=== PATIENT | male | born 1980 | race Caucasian/White ===

== ENCOUNTER 2016-08-16 15:43 | Emergency (ER) | payer OTHER ==
[~2016-08-16] VITALS: Ht 182.9 cm; Wt 104.3 kg
[2016-08-16] MEDS ORDERED: ZYRT10TA2 PO (15:53)
[2016-08-16] MEDS ORDERED: FLON1SPR (15:53)
[2016-08-16] MEDS ORDERED: ACETAMINOPHEN 325 MG TAB PO ONE (16:15)
[2016-08-16] MEDS ORDERED: MOTR200T44 PO (16:46)
--- NOTE | 2016-08-16 16:47 | REP ---
LEFT HAND: REASON: Pain after trauma. Attention first digit. COMPARISON EXAM: 02/16/2007. FINDINGS: The joint spaces are symmetric and relatively well maintained. There is no evidence of acute fracture or destructive osseous lesion. There is complete healing of the previous noted boxers fracture with slight result in deformity. IMPRESSION: Negative hand. Signed by Navdeep Langston DO 08/17/2016 09:24 A
--- NOTE | 2016-08-16 16:49 | REP ---
LEFT WRIST: HISTORY: Pain after trauma. COMPARISON: None. FINDINGS: No acute fracture or destructive osseous lesion. Signed by Navdeep Langston DO 08/17/2016 09:24 A
[2016-08-16 17:07] VITALS: BP 118/56
== END 2016-08-16 17:12 | disposition home or self-care (01) ==
LOC: M ED 16:18
DX: S63.602A Unspecified sprain of left thumb, initial encounter (principal); W23.0XXA Caught, crushed, jammed, or pinched between moving objects, initial encounter; Y92.818 Other transport vehicle as the place of occurrence of the external cause; Y93.9 Activity, unspecified; Y99.9 Unspecified external cause status; F17.200 Nicotine dependence, unspecified, uncomplicated; Z79.899 Other long term (current) drug therapy; Z88.0 Allergy status to penicillin

== ENCOUNTER → 2016-09-14 | Outpatient (REF) | payer OTHER ==
[~2016-09-14] MED LIST: FLON1SPR; MOTR200T44 PO; ZYRT10TA2 PO
[2016-09-14 12:24] LABS: ALBUMIN/GLOBULIN RATIO 1.67 (1.00-1.93); ALKALINE PHOSPHATASE 81 U/L (45-117); ALT/SGPT 26 U/L (12-78); ANION GAP 9 MEQ/L (8-16); AST/SGOT 18 U/L (15-37); BILIRUBIN,TOTAL 0.4 MG/DL (0.2-1.0); BLOOD UREA NITROGEN 13 MG/DL (7-18); CALCIUM LEVEL 8.8 MG/DL (8.5-10.1); CARBON DIOXIDE LEVEL 25 MEQ/L (21-32); CHLORIDE LEVEL 109 MEQ/L (98-107); CREATININE FOR GFR 1.18 MG/DL (0.70-1.30); GLOMERULAR FILTRATION RATE > 60.0 (>60); GLUCOSE, FASTING 100 MG/DL (70-105); POTASSIUM SERUM 4.1 MEQ/L (3.5-5.1); SODIUM LEVEL 143 MEQ/L (136-145); TOTAL PROTEIN 6.4 GM/DL (6.4-8.2)
== END ==
LOC: M LABDRAW1 11:37
PROVIDERS: ATTEND Physician Assistant
DX: Z72.51 High risk heterosexual behavior (principal); R00.1 Bradycardia, unspecified

== ENCOUNTER 2016-09-21 09:27 | Emergency (ER) | payer OTHER ==
[~2016-09-21] VITALS: Ht 182.9 cm; Wt 99.8 kg
[2016-09-21 09:27] VITALS: BP 133/74
[2016-09-21] MEDS ORDERED: NAPR500T2 PO (09:59)
== END 2016-09-21 10:07 | disposition home or self-care (01) ==
LOC: M ED 09:56
DX: M25.562 Pain in left knee (principal); F17.200 Nicotine dependence, unspecified, uncomplicated; Z79.899 Other long term (current) drug therapy; Z88.0 Allergy status to penicillin

== ENCOUNTER 2016-11-04 05:56 | Emergency (ER) | payer OTHER ==
[~2016-11-04] VITALS: Ht 182.9 cm; Wt 97.5 kg
[~2016-11-04 05:56] MED LIST changes: +NAPR500T2 PO
[2016-11-04] MEDS ORDERED: KETOROLAC 60 MG/2 ML VIAL (J1885) IM ONE (07:00)
[2016-11-04] MEDS ORDERED: METHOCARBAMOL 500 MG TAB PO ONE (07:00)
[2016-11-04] MEDS ORDERED: NORCOTAB PO (07:02)
[2016-11-04] MEDS ORDERED: IBUP600T26 PO (07:02)
[2016-11-04] MEDS ORDERED: ROBA500T PO (07:02)
[2016-11-04 07:36] VITALS: BP 115/76
== END 2016-11-04 07:38 | disposition home or self-care (01) ==
LOC: M ED 07:23
DX: S39.012A Strain of muscle, fascia and tendon of lower back, initial encounter (principal); X50.0XXA Overexertion from strenuous movement or load, initial encounter; Y92.89 Other specified places as the place of occurrence of the external cause; Y93.89 Activity, other specified; Y99.8 Other external cause status; F17.210 Nicotine dependence, cigarettes, uncomplicated

== ENCOUNTER 2017-03-14 22:03 | Emergency (ER) | payer OTHER ==
[~2017-03-14] VITALS: Ht 188 cm; Wt 102.4 kg
[~2017-03-14 22:03] MED LIST changes: +IBUP-1022 PO; -NAPR500T2 PO; +NAPR500T3 PO; +NORCOTAB PO; +ROBA500T PO
[2017-03-15] MEDS ORDERED: TESS100C PO (01:05)
[2017-03-15] MEDS ORDERED: ALBUTEROL 90 MCG/ACT 8GM HFA INHALER INH ONE (01:15)
[2017-03-15] MEDS ORDERED: BENZONATATE 100 MG CAP PO ONE (01:15)
[2017-03-15 01:17] VITALS: BP 123/67
== END 2017-03-15 01:19 | disposition home or self-care (01) ==
LOC: M ED 22:03
DX: J06.9 Acute upper respiratory infection, unspecified (principal); Z79.899 Other long term (current) drug therapy; Z88.0 Allergy status to penicillin

== ENCOUNTER 2017-05-01 19:58 | Emergency (ER) | payer OTHER ==
[~2017-05-01] VITALS: Ht 182.9 cm; Wt 102.3 kg
[~2017-05-01 19:58] MED LIST changes: +TESS100C PO
[2017-05-01] MEDS ORDERED: NS 1,000 ML IV ONE (22:00)
[2017-05-01 22:19] LABS: BASO # 0.1 10^3/uL (0.0-0.2); BASO % 0.8 % (0.0-1.0); EOS # 0.4 10^3/uL (0.0-0.50); EOS % 3.8 % (0.0-3.0); IMMATURE GRANULOCYTE % 0.7 % (0-0); LYMPH # 2.9 10^3/uL (1.5-4.5); LYMPH % 26.7 % (24.0-44.0); MEAN CORPUSCULAR HEMOGLOBIN 31.3 pg (27.0-33.0); MEAN CORPUSCULAR VOLUME 89.5 fl (80.0-96.0); MONO # 0.9 10^3/uL (0.0-0.8); MONO % 8.5 % (0.0-5.0); NEUTROPHILS # 6.5 10^3/uL (1.8-7.7); NEUTROPHILS % 59.5 % (36.0-66.0); PLATELET COUNT, AUTOMATED 210 10^3/uL (150-450); RED CELL DISTRIBUTION WIDTH 12.2 % (11.5-14.5); WHITE BLOOD COUNT 10.9 10^3/uL (4.0-10.0)
[2017-05-01 22:30] LABS: INR 0.93
[2017-05-01 22:38] LABS: ALBUMIN 4.2 GM/DL (3.2-5.2); ALBUMIN/GLOBULIN RATIO 1.31 (1.00-1.93); ALKALINE PHOSPHATASE 70 U/L (45-117); ALT/SGPT 48 U/L (12-78); AMYLASE 99 U/L (25-115); ANION GAP 8 MEQ/L (8-16); AST/SGOT 29 U/L (7-37); BILIRUBIN,DIRECT < 0.1 MG/DL (0.0-0.2); BILIRUBIN,TOTAL 0.2 MG/DL (0.2-1.0); BLOOD UREA NITROGEN 11 MG/DL (7-18); CALCIUM LEVEL 8.6 MG/DL (8.5-10.1); CARBON DIOXIDE LEVEL 27 MEQ/L (21-32); CHLORIDE LEVEL 106 MEQ/L (98-107); CREATININE FOR GFR 1.09 MG/DL (0.70-1.30); GLOMERULAR FILTRATION RATE > 60.0 (>60); GLUCOSE, FASTING 98 MG/DL (70-105); POTASSIUM SERUM 3.9 MEQ/L (3.5-5.1); SODIUM LEVEL 141 MEQ/L (136-145); TOTAL PROTEIN 7.4 GM/DL (6.4-8.2)
[2017-05-01] MEDS ORDERED: ISOVUE-370 76% 100ML VIAL (Q9967) As Ordered ONE (22:38)
--- NOTE | 2017-05-01 23:10 | REPUSA ---
CT of the abdomen and pelvis with contrast Clinical statement: Pain. Technique: Multiple axial CT images were obtained from the base of the lungs through the floor of the pelvis utilizing 5 mm axial slices after administration of nonionic intravenous contrast. Coronal an d sagittal reconstructions were also obtained. Comparison: 10/16/2013. Findings: Chest: The visualized lung bases are clear. Abdomen: The spleen, pancreas, kidneys, gallbladder, and adrenal glands are unremarkable. Diffuse low attenuation of the hepatic parenchyma is noted. No focal hepatic masses are seen. The hepatic and po rtal veins are patent. The aorta is within normal limits. There is no evidence of abdominal lymphaden opathy or ascites. Pelvis: The bowel is unremarkable, with no obstructive or inflammatory changes. The appendix is dave l. The urinary bladder is within normal limits. The other pelvic structures appear grossly intact. Th ere is no evidence of pelvic lymphadenopathy or ascites. Bones: There are no suspicious osseous abnormalities seen. Impression: Unremarkable CT examination of the abdomen and pelvis.
[2017-05-01] MEDS ORDERED: ANUS25SU PR (23:46)
[2017-05-01 23:52] VITALS: BP 148/77
== END 2017-05-02 | disposition home or self-care (01) ==
LOC: M ED 19:58
DX: K62.5 Hemorrhage of anus and rectum (principal); K64.4 Residual hemorrhoidal skin tags; F17.210 Nicotine dependence, cigarettes, uncomplicated; Z88.0 Allergy status to penicillin; Z79.899 Other long term (current) drug therapy
CPT/HCPCS: 74177; 80048; 80076; 81001; 82150; 83605; 83690; 85025; 85610; 85730; 99284; Q9967

== ENCOUNTER 2017-08-30 21:15 | Emergency (ER) | payer OTHER ==
[2017-08-30] MEDS: NORCO, ANEXSIA 5/325MG TABLET (HYDROcodone/ACETAMINOPHEN) PO (23:30)
[2017-08-30] MEDS: DOXYCYCLINE HYCLATE 100 MG TAB PO (23:30)
[2017-08-30] MEDS: ADACEL/BOOSTRIX VACCINE (DIPHTH/PERTUSS/ACELL/TETANUS)0.5ML SYR (90715) IM (23:33)
== END 2017-08-30 23:48 | disposition home or self-care (01) ==
LOC: M ED 21:15
DX: S61.452A Open bite of left hand, initial encounter (principal)
CPT/HCPCS: 90715

== ENCOUNTER → 2017-09-19 | Outpatient (REF) | payer OTHER ==
[2017-09-19 11:42] LABS: BASO # 0.1 10^3/uL (0.0-0.2); BASO % 0.9 % (0.0-1.0); EOS # 0.3 10^3/uL (0.0-0.50); EOS % 3.3 % (0.0-3.0); HEMATOCRIT 40.6 % (42.0-52.0); IMMATURE GRANULOCYTE % 0.5 % (0-3.0); LYMPH # 2.2 10^3/uL (1.5-4.5); LYMPH % 23.3 % (24.0-44.0); MEAN CORPUSCULAR HGB CONC 34.5 g/dl (32.0-36.5); MEAN CORPUSCULAR VOLUME 89.8 fl (80.0-96.0); MONO # 0.7 10^3/uL (0.0-0.8); MONO % 7.4 % (0.0-5.0); NEUTROPHILS % 64.6 % (36.0-66.0); PLATELET COUNT, AUTOMATED 220 10^3/uL (150-450); RED BLOOD COUNT 4.52 10^6/uL (4.30-6.10); RED CELL DISTRIBUTION WIDTH 12.3 % (11.5-14.5); WHITE BLOOD COUNT 9.2 10^3/uL (4.0-10.0)
== END ==
LOC: M LABDRAW1 10:08
DX: R59.9 Enlarged lymph nodes, unspecified (principal)
CPT/HCPCS: 85025

== ENCOUNTER → 2017-09-21 | Outpatient (CLI) | payer OTHER | LOC: M RAD 14:27 | DX: R59.0 Localized enlarged lymph nodes (principal) | CPT/HCPCS: 76536 ==

== ENCOUNTER → 2017-12-14 | Outpatient (CLI) | payer OTHER ==
[~2017-12-14] MED LIST changes: -FLON1SPR; -IBUP-1022 PO; +LIDOCAINE 1% MDV 20ML VIAL As Ordered; -MOTR200T44 PO; -NAPR500T3 PO; -NORCOTAB PO; -ROBA500T PO; -TESS100C PO; -ZYRT10TA2 PO
== END ==
LOC: M RADPRO 10:49
DX: C81.90 Hodgkin lymphoma, unspecified, unspecified site (principal); R59.0 Localized enlarged lymph nodes; Z79.899 Other long term (current) drug therapy; Z88.0 Allergy status to penicillin
CPT/HCPCS: 38505

== ENCOUNTER 2018-01-25 11:37 | Emergency (ER) | payer OTHER | END 2018-01-25 13:53 | disposition home or self-care (01) | LOC: M ED 11:37 | DX: Z76.0 Encounter for issue of repeat prescription (principal); F17.200 Nicotine dependence, unspecified, uncomplicated | CPT/HCPCS: 99283 ==

== ENCOUNTER 2018-02-03 09:07 | Emergency (ER) | payer OTHER | END 2018-02-03 09:50 | disposition home or self-care (01) | LOC: M ED 09:07 | DX: Z76.0 Encounter for issue of repeat prescription (principal); G89.29 Other chronic pain; M54.2 Cervicalgia; C85.90 Non-Hodgkin lymphoma, unspecified, unspecified site; Z79.899 Other long term (current) drug therapy; Z88.0 Allergy status to penicillin; Z88.5 Allergy status to narcotic agent; F17.210 Nicotine dependence, cigarettes, uncomplicated | CPT/HCPCS: 99282 ==

== ENCOUNTER 2018-02-05 09:38 | Emergency (ER) | payer OTHER | END 2018-02-05 10:42 | disposition home or self-care (01) | LOC: M ED 09:38 | DX: M54.2 Cervicalgia (principal); G89.29 Other chronic pain; C85.90 Non-Hodgkin lymphoma, unspecified, unspecified site; Z86.79 Personal history of other diseases of the circulatory system; F17.200 Nicotine dependence, unspecified, uncomplicated; Z88.0 Allergy status to penicillin; Z88.5 Allergy status to narcotic agent; Z79.899 Other long term (current) drug therapy | CPT/HCPCS: 99282 ==

== ENCOUNTER 2018-02-09 10:01 | Emergency (ER) | payer OTHER | END 2018-02-09 11:20 | disposition home or self-care (01) | LOC: M ED 10:01 | DX: Z76.0 Encounter for issue of repeat prescription (principal); M54.2 Cervicalgia; G89.29 Other chronic pain; C85.90 Non-Hodgkin lymphoma, unspecified, unspecified site; J45.909 Unspecified asthma, uncomplicated; F17.210 Nicotine dependence, cigarettes, uncomplicated; Z88.0 Allergy status to penicillin; Z88.5 Allergy status to narcotic agent; Z79.899 Other long term (current) drug therapy | CPT/HCPCS: 99282 ==

== ENCOUNTER 2018-02-12 15:28 | Emergency (ER) | payer OTHER | END 2018-02-12 17:40 | disposition home or self-care (01) | LOC: M ED 15:28 | DX: R59.0 Localized enlarged lymph nodes (principal); C81.91 Hodgkin lymphoma, unspecified, lymph nodes of head, face, and neck; M54.2 Cervicalgia; Z76.0 Encounter for issue of repeat prescription; F17.210 Nicotine dependence, cigarettes, uncomplicated | CPT/HCPCS: 99282 ==

== ENCOUNTER 2018-03-05 09:51 | Emergency (ER) | payer OTHER | END 2018-03-05 11:50 | disposition home or self-care (01) | LOC: M ED 09:51 | DX: J06.9 Acute upper respiratory infection, unspecified (principal); J45.909 Unspecified asthma, uncomplicated; F32.9 Major depressive disorder, single episode, unspecified; Z85.72 Personal history of non-Hodgkin lymphomas; Z79.899 Other long term (current) drug therapy; Z88.0 Allergy status to penicillin; Z88.5 Allergy status to narcotic agent | CPT/HCPCS: 71046 ==

== ENCOUNTER 2018-03-12 15:58 | Emergency (ER) | payer OTHER | END 2018-03-12 17:27 | disposition home or self-care (01) | LOC: M ED 15:58 | DX: Z76.0 Encounter for issue of repeat prescription (principal); M54.2 Cervicalgia; C85.90 Non-Hodgkin lymphoma, unspecified, unspecified site; J45.909 Unspecified asthma, uncomplicated; Z88.0 Allergy status to penicillin; Z88.5 Allergy status to narcotic agent; Z79.899 Other long term (current) drug therapy; Z79.2 Long term (current) use of antibiotics | CPT/HCPCS: 99283 ==

== ENCOUNTER 2018-04-15 10:29 | Emergency (ER) | payer OTHER | END 2018-04-15 11:25 | disposition home or self-care (01) | LOC: M ED 10:29 | DX: R22.1 Localized swelling, mass and lump, neck (principal); G89.18 Other acute postprocedural pain; J45.909 Unspecified asthma, uncomplicated; F33.9 Major depressive disorder, recurrent, unspecified; Z79.899 Other long term (current) drug therapy; Z85.72 Personal history of non-Hodgkin lymphomas; Z88.0 Allergy status to penicillin; Z88.5 Allergy status to narcotic agent; F17.210 Nicotine dependence, cigarettes, uncomplicated | CPT/HCPCS: 99282 ==

== ENCOUNTER 2018-10-25 12:33 | Emergency (ER) | payer OTHER ==
[~2018-10-25] VITALS: Ht 182.9 cm; Wt 102.0 kg
[~2018-10-25 12:33] MED LIST changes: +ANUS25SU PR; +BENZ200C70 PO; +CEFD1CAP8 PO; +CLAR10CA3 PO; +DOXY100C37 PO; +FLON1SPR; +FLON1SPR NARES; +HYDR-3715 PO; +IBUP-1022 PO; -LIDOCAINE 1% MDV 20ML VIAL As Ordered; +MOTR200T44 PO; +MUCI600T37 PO; +NAPR-885 PO; +OXYC-517 PO; +OXYC1CAP PO; +OXYCO5TA PO; +OXYCOD/APAP; +PERC5TAB12 PO; +Percocet; +ROBA500T PO; +ROXI1TAB2 PO; +TESS100C PO; +ZYRT10CA5 PO
[2018-10-25] MEDS ORDERED: IPRATROPIUM 0.5MG/ALBUTEROL 2.5MG INH SOL UD 3ML (DUONEB)(J7620) NEB ONE (13:30)
--- NOTE | 2018-10-25 13:41 | REP ---
Clinical: Cough and dyspnea . Comparison: 03/05/2018 . Technique: PA and lateral. Findings: The mediastinum and cardiac silhouette are normal. [id number] with tip in the SVC. The lung jackson are clear and without acute consolidation, effusion, or pneumothorax. The skeletal structures are intact and normal. Impression: 1. No acute cardiopulmonary process. Electronically Signed by Austin Benson MD 10/25/2018 01:32 P
[2018-10-25] MEDS ORDERED: VENTAER INH (14:14)
[2018-10-25 14:24] VITALS: BP 104/64
== END 2018-10-25 14:20 | disposition home or self-care (01) ==
LOC: M ED 12:33
DX: J06.9 Acute upper respiratory infection, unspecified (principal); J45.901 Unspecified asthma with (acute) exacerbation; F32.9 Major depressive disorder, single episode, unspecified; C81.90 Hodgkin lymphoma, unspecified, unspecified site; Z87.442 Personal history of urinary calculi; Z72.0 Tobacco use; Z88.1 Allergy status to other antibiotic agents; Z88.5 Allergy status to narcotic agent; Z79.899 Other long term (current) drug therapy

== ENCOUNTER 2018-11-27 19:36 | Inpatient (IN) | payer OTHER ==
[~2018-11-27] VITALS: Ht 182.9 cm; Wt 104.3 kg
[2018-11-27] MEDS: NS 1,000 ML IV SCH (01:15)
[~2018-11-27 19:36] MED LIST changes: +VENTAER INH
[2018-11-27 21:15] LABS: HEMATOCRIT 31.6 % (42.0-52.0); HEMOGLOBIN 11.2 g/dl (13.5-17.5); MEAN CORPUSCULAR HEMOGLOBIN 30.7 pg (27.0-33.0); MEAN CORPUSCULAR HGB CONC 35.4 g/dl (32.0-36.5); MEAN CORPUSCULAR VOLUME 86.6 fl (80.0-96.0); PLATELET COUNT, AUTOMATED 207 10^3/uL (150-450); RED BLOOD COUNT 3.65 10^6/uL (4.30-6.10); WHITE BLOOD COUNT 2.5 10^3/uL (4.0-10.0)
[2018-11-27 21:20] LABS: ALBUMIN 3.3 GM/DL (3.2-5.2); ALT/SGPT 46 U/L (12-78); BILIRUBIN,TOTAL 0.4 MG/DL (0.2-1.0); BLOOD UREA NITROGEN 10 MG/DL (7-18); CALCIUM LEVEL 8.4 MG/DL (8.5-10.1); CARBON DIOXIDE LEVEL 25 MEQ/L (21-32); CHLORIDE LEVEL 106 MEQ/L (98-107); GLOMERULAR FILTRATION RATE > 60.0 (>60); GLUCOSE, FASTING 104 MG/DL (70-100); POTASSIUM SERUM 3.4 MEQ/L (3.5-5.1); SODIUM LEVEL 139 MEQ/L (136-145); TOTAL PROTEIN 6.7 GM/DL (6.4-8.2)
[2018-11-27 21:51] LABS: ATYPICAL LYMPH 1 % (0-5); BASOPHILS 1 % (0-4); EOSINOPHILS 2 % (0-5); LYMPHOCYTES 54 % (16-52); METAMYELOCYTES 3 % (0-0); MONOCYTES 17 % (0-8); MYELOCYTES 7 % (0-0); NEUTROPHILS 8 % (35-75); PROMYELOCYTES 1 % (0-0)
[2018-11-27 21:52] LABS: PLATELET ESTIMATE NORMAL (NORMAL)
[2018-11-27] MEDS ORDERED: NS 1,000 ML IV ONE ×2 (22:30→23:45)
[2018-11-27] MEDS ORDERED: CEFEPIME HCL 2 GM in D5W MINI-BAG PLUS 50 ML IV ONE (22:30)
[2018-11-27] MEDS ORDERED: IBUPROFEN 400 MG TAB PO ONE (23:00)
[2018-11-27] MEDS ORDERED: GABA-843 PO (23:23)
[2018-11-27] MEDS ORDERED: OXYC-517 PO (23:23)
[2018-11-27] MEDS ORDERED: FLON1SPR (23:23)
[2018-11-27] MEDS ORDERED: VENTAER INH (23:23)
[2018-11-27] MEDS ORDERED: CLAR10TA7 PO (23:23)
[2018-11-27] MEDS ORDERED: NICO2GUM MT (23:28)
[2018-11-27] MEDS ORDERED: FILGRASTIM 480 MCG/0.8 ML SYRINGE (J1442) SC ONE (23:45)
[2018-11-27] MEDS ORDERED: SODIUM CHLORIDE 0.9% 1000ML IV ONE (23:45)
[2018-11-28] MEDS ORDERED: ALBUTEROL 90 MCG/ACT 8GM HFA INHALER INH PRN
--- NOTE | 2018-11-28 | HPEPDOC ---
General Date of Admission Nov 27, 2018 at 23:27 Date of Service: Nov 27, 2018 Chief Complaint The patient is a 38-year-old male admitted with a reason for visit of Fever And Neutropenia. Source: Patient, RN/MD, Old records Exam Limitations: No limitations Severity: Moderate Associated Symptoms: Cough, Fever, Chills, Malaise, Hypotension History of Present Illness 38 year old male with Hodgkin's lymphoma diagnosed in january 2018 on chemotherapy last one 2 weeks ago presented to the ED with fever. Patient was feeling unwell since last night. He had chills feeling hot and cold and started a cough. The cough was initially dry then he had some phlegm production, no blood. No associated pleuritic chest pain or sore throat. He did have some nasal congestion with nasal discharge. This morning he woke up and he felt hot checked his temperature which was 102 so came to the ED. In the ED labs showed neutrop enia with absolute neutrophil count of less than 500. His chest CXR did not show any acute infiltrates. He was admitted for febrile neutropenia. Home Medications Scheduled Gabapentin (Gabapentin) 300 Mg Capsule, 300 MG PO TID, (Reported) Loratadine (Claritin) 10 Mg Tablet, 10 MG PO DAILY, (Reported) Scheduled PRN Albuterol Sulfate (Ventolin Hfa) 18 Gm Hfa.aer.ad, 2 PUFF INH QID PRN for SHORTNESS OF BREATH, (Reported) Fluticasone Propionate (Flonase Allergy Relief) 9.9 Ml [place].susp, 2 SPRAYS NA DAILY PRN for NASAL CONGESTION, (Reported) Nicotine Polacrilex (Nicotine Gum) 2 Mg Gum, 2 MG MT Q1H PRN for SMOKING CESSATION, (Reported) Oxycodone HCl (Oxycodone HCl) 5 Mg Tablet, 5 MG PO Q8H PRN for PAIN, (Reported) Allergies Coded Allergies: amoxicillin (Verified Allergy, Unknown, 11/27/18) tramadol (Verified Allergy, Unknown, 11/27/18) Past Medical History Medical History Hodgkin's lymphoma Surgical History 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 chemo port placement [place] fracture surgery Family History Significant Family History: Cancer (bladder cancer in grandfather), Diabetes (maternal aunt), Hypertension (maternal aunt), Hyperlipidemia Social History * Smoker: current smoker Alcohol: Denies Drugs: marijuana A-FIB/CHADSVASC A-FIB History Current/History of A-Fib/PAF?: No Review of Systems Constitutional: Reports: Chills, Fever, Malaise Eyes: Denies: Pain, Vision change ENT: Denies: Head Aches, Ear Pain, Dysphagia Skin: Denies: Rash, Lesions, Breakdown Pulmonary: Reports: Cough; Denies: Dyspnea, Pleuritic Chest Pain Cardiovascular: Denies: Chest Pain, Palpitations, Orthopnea, Paroxysmal Noc. Dyspnea, Lt Headedness Gastrointestinal: Denies: Nausea, Vomiting, Abdominal Pain, Diarrhea Genitourinary: Denies: Dysuria, Frequency, Incontinence, Retention Hematologic: Denies: Bruising, Bleeding Excessively Musculoskeletal: Denies: Neck Pain, Back Pain, Joint Pain, Muscle Pain, Spasms Neurological: Denies: Weakness, Numbness, Change in speech, Confusion Physical Examination General Exam: Positive: Alert, Cooperative, No Acute Distress Eye Exam: Positive: PERRLA, Conjunctiva & lids normal, EOMI; Negative: Sclera icteric ENT Exam: Positive: Atraumatic, Mucous membr. moist/pink, Pharynx Normal Neck Exam: Positive: Supple; Negative: JVD, thyromegaly Chest Exam: Positive: Clear to auscultation, Normal air movement Heart Exam: Positive: Rate Normal, Regular Rhythm, Normal S1, Normal S2; Negative: Murmurs, Rubs Abdomen Exam: Positive: Normal bowel sounds, Soft; Negative: Tenderness, Hepatospenomegaly Extremity Exam: Positive: Normal pulses; Negative: Clubbing, Cyanosis, Edema Skin Exam: Positive: Nl turgor and temperature; Negative: Breakdown, Lesion Neuro Exam: Positive: Normal Gait, Normal Speech, Cranial Nerves 3-12 NL, Reflexes 2+ Vital Signs Vital Signs Date Time Temp Pulse Resp B/P (MAP) Pulse Ox O2 Delivery O2 Flow Rate FiO2 11/27/18 22:27 97.4 11/27/18 22:21 88 93 11/27/18 22:15 98/56 (70) 11/27/18 19:37 20 Room Air Laboratory Data Labs 24H Laboratory Tests 2 11/27/18 20:40: Immature Granulocyte % (Auto) , White Blood Count 2.5L, Red Blood Count 3.65L, Hemoglobin 11.2L, Hematocrit 31.6L, Mean Corpuscular Volume 86.6, Mean Samantha uscular Hemoglobin 30.7, Mean Corpuscular Hemoglobin Concent 35.4, Red Cell Distribution Width 14.4, Platelet Count 207, Basophils (%) (Auto) , Neutrophils # (Auto) , Nucleated Red Blood Cells % (auto) 0.0, Neutrophils 8L, Band Neutrophils 6, Lymphocytes (Manual) 54H, Monocytes (Manual) 17H, Eosinophils (Manual) 2, Basophils (Manual) 1, Metamyelocytes 3H, Myelocytes 7H, Promyelocytes 1H, Atypical Lymphocytes 1, Platelet Estimate NORMAL, Red Blood Cell Morphology NORMAL, Anion Gap 8, Glomerular Filtration Rate > 60.0, Lactic Acid Level 1.5, Blood Urea Nitrogen 10, Creatinine 1.00, Sodium Level 139, Potassium Level 3.4L, Chloride Level 106, Carbon Dioxide Level 25, Calcium Level 8.4L, Aspartate Amino Transf (AST/SGOT) 32, Alanine Aminotransferase (ALT/SGPT) 46, Alkaline Phosphatase 83, Total Bilirubin 0.4, Total Protein 6.7, Albumin 3.3, Albumin/Globulin Ratio 0.97L 11/27/18 22:03: Urine Color YELLOW, Urine Appearance CLEAR, Urine pH 5.0, Urine Specific [place] 1.028, Urine Protein NEGATIVE, Urine Glucose (UA) NEGATIVE, Urine Ketones NEGATIVE, Urine Blood 1+H, Urine Nitrite NEGATIVE, Urine Bilirubin NEGATIVE, Urine Urobilinogen 2.0H, Urine Leukocyte Esterase NEGATIVE, Urine WBC (Auto) 2, Urine RBC (Auto) 6H, Urine Hyaline Casts (Auto) 0, Urine Bacteria (Auto) N EGATIVE, Urine Squamous Epithelial Cells 0, Urine Mucus (Auto) SMALL, Urine Sperm (Auto) CBC/BMP Laboratory Tests 11/27/18 20:40 Red Blood Count 3.65 L, Mean Corpuscular Volume 86.6, Mean Corpuscular Hemoglobin 30.7, Mean Corpuscular Hemoglobin Concent 35.4, Red Cell Distribution Width 14.4, Basophils (%) (Auto) , Neutrophils # (Auto) , Calcium Level 8.4 L, Aspartate Amino Transf (AST/SGOT) 32, Alanine Aminotransferase (ALT/SGPT) 46, Alkaline Phosphatase 83, Total Bilirubin 0.4, Total Protein 6.7, Albumin 3.3 Microbiology Microbiology 11/27/18 Blood Culture, Received Pending 6/25/19 Blood Culture, Received Pending Assessment/Plan 38 year old male with Hodgkin's lymphoma diagnosed in january 2018 on chemotherapy last one 2 weeks ago presented to the ED with fever. Patient was feeling unwell since last night. He had chills feeling hot and cold and started a cough. The cough was initially dry then he had some phlegm production, no blood. No associated pleuritic chest pain or sore throat. He did have some nasal congestion with nasal discharge. This morning he woke up and he felt hot checked his temperature which was 102 so came to the ED. In the ED labs showed neutropenia with absolute neutrophil count of less than 500. His chest CXR did not show any acute infiltrates. He was admitted for febrile neutropenia. Febrile Neutropenia blood cultures ordered, cxr reviewed, will sent sputum culture and gram statin He does have a chemoport which was a little painful on access and had some difficulty in flushing. If blood cultures start coming back positive the chemoport will need to be assessed as a source of infection. will give cefepime and vancomycin Neupogen IVF. Neutropenia chemotherapy induced. Hypotension Blood pressure lowish will give 3 liter NS bolus in total then continue @ 100 cc / hour Hodgkin's Lymphoma treatment at [facility] On chemotherapy. Had PET scan about 1 week ago and no lymph nodes were seen so the plan for RT has been cancelled. Problem in chemoport access by ED nurses It is a double lumen port. Both ports were accessed and flushed but there was no blood return in either Needs to reassessed in the AM. Plan / VTE VTE Prophylaxis Ordered?: Yes KAILEY GARZA MD Nov 28, 2018 00:00
[2018-11-28] MEDS ORDERED: VANCOMYCIN HCL 1,000 MG, VIAL MATE ADAPTER 1 EACH in D5W 250 ML IV ONE (00:15)
[2018-11-28] MEDS: NS 1,000 ML IV SCH ×2 (01:15→12:47)
[2018-11-28 01:44] VITALS: BP 127/70
[2018-11-28] MEDS: VANCOMYCIN HCL 1,000 MG, VIAL MATE ADAPTER 1 EACH in D5W 250 ML IV SCH ×3 (02:17→17:13)
[2018-11-28] MEDS ORDERED: SODIUM CHLORIDE 0.9% INJ 10 ML SYR IV PRN (05:30)
--- NOTE | 2018-11-28 05:51 | REP ---
Clinical: Fever. Technique: PA and lateral. Comparison: 10/25/2018. Findings: Mediastinum and cardiac silhouette are within normal limits and stable. [id number]-H-[id number] identified with tip in the SVC/right atrium. Lung jackson are relatively clear and without focal consolidation, effusion, or pneumothorax. Skeletal structures intact. Impression: No focal consolidation. Electronically Signed by Austin Benson MD 11/28/2018 05:43 A
--- NOTE | 2018-11-28 05:57 | PHACANCOPD ---
PHARMACY VANCOMYCIN DOSING Pt Demographics Demographics Patient Age:38 , Weight:105.200 , Gender: male Adjusted Body Weight Date: 11/28/18, Adjusted Body Weight: [87.5] Kg Vancomycin Vancomycin indication: NEUTROPENIC FEVER,LINE INFECTION Vancomycin Target Ranges: 15-20 mcg/ml Vancomycin Load Y/N: Yes Load Dose Date Time Vancomycin Load Dose: 2GM Date: 11/28 Time: 0100 Vancomycin Dose Date: 11/28/18. Current Vancomycin Dose: [1GM Q8H] Intermittent Dosing?: No Labs Labs Laboratory Tests 11/27/18 20:40 Red Blood Count 3.65 L, Mean Corpuscular Volume 86.6, Mean Corpuscular Hemoglobin 30.7, Mean Corpuscular Hemoglobin Concent 35.4, Red Cell Distribution Width 14.4, Basophils (%) (Auto) , Neutrophils # (Auto) , Calcium Level 8.4 L, Aspartate Amino Transf (AST/SGOT) 32, Alanine Aminotransferase (ALT/SGPT) 46, Alkaline Phosphatase 83, Total Bilirubin 0.4, Total Protein 6.7, Albumin 3.3 Micro Microbiology 11/27/18 Blood Culture, Received Pending 11/27/18 Blood Culture, Received Pending Creatinine Clearance Date:11/28/18. Creatinine Clearance: [121.5].CALCULATED Assessment and Plan Maintaining Current Dose?: Yes Reason for dose change: No Dose Change Pharmacist Note Pharmacist Note Date: 11/28/18. Pharmacist note:38 YOM,Hx of Hodgkins Lymphoma,admitted w/ Neutropenic fever/possible infected Chemoport. Tx with Cefepime 2 gm Q12H and Pharmacy dosed Vancomycin. Vanco 2 gm load 11/28@0100,then 1 gram IV Q8H@ 1000. First trough to be drawm 11/29@0900, prior to the 5th dose- will continue to follow. AVNI BOLDEN PHARMACY Nov 28, 2018 05:57
[2018-11-28 06:00] VITALS: BP 152/72
[2018-11-28 06:33] LABS: HEMATOCRIT 29.6 % (42.0-52.0); MEAN CORPUSCULAR HEMOGLOBIN 30.1 pg (27.0-33.0); MEAN CORPUSCULAR HGB CONC 33.8 g/dl (32.0-36.5); MEAN CORPUSCULAR VOLUME 89.2 fl (80.0-96.0); PLATELET COUNT, AUTOMATED 183 10^3/uL (150-450); RED BLOOD COUNT 3.32 10^6/uL (4.30-6.10); WHITE BLOOD COUNT 2.2 10^3/uL (4.0-10.0)
[2018-11-28 07:00] LABS: BLOOD UREA NITROGEN 10 MG/DL (7-18); CALCIUM LEVEL 7.9 MG/DL (8.5-10.1); CARBON DIOXIDE LEVEL 23 MEQ/L (21-32); CHLORIDE LEVEL 112 MEQ/L (98-107); CREATININE FOR GFR 0.97 MG/DL (0.70-1.30); GLOMERULAR FILTRATION RATE > 60.0 (>60); GLUCOSE, FASTING 92 MG/DL (70-100); POTASSIUM SERUM 3.5 MEQ/L (3.5-5.1); SODIUM LEVEL 142 MEQ/L (136-145)
[2018-11-28 07:16] LABS: EOSINOPHILS 3 % (0-5); LYMPHOCYTES 70 % (16-52); MONOCYTES 3 % (0-8); NEUTROPHILS 24 % (35-75)
[2018-11-28 07:18] LABS: PLATELET ESTIMATE NORMAL (NORMAL)
[2018-11-28] MEDS ORDERED: FILGRASTIM 480 MCG/0.8 ML SYRINGE (J1442) SC SCH (09:00)
[2018-11-28] MEDS: ACETAMINOPHEN 500 MG TAB PO PRN ×2 (09:43→17:42)
[2018-11-28] MEDS: ENOXAPARIN 40 MG/0.4 ML SYRINGE (J1650) SC SCH (09:44)
[2018-11-28] MEDS: GABAPENTIN 300 MG CAP PO SCH ×3 (09:44→21:33)
[2018-11-28] MEDS: SODIUM CHLORIDE 0.9% INJ 10 ML SYR IV SCH (09:44)
[2018-11-28] MEDS: CEFEPIME HCL 2 GM in D5W MINI-BAG PLUS 50 ML IV SCH ×2 (12:47→23:12)
[2018-11-28] MEDS: oxyCODONE 5MG TAB PO PRN ×3 (13:05→23:13)
--- NOTE | 2018-11-28 13:30 | IPNPDOC ---
Text Note Date of Service The patient was seen on 11/28/18. NOTE Subjective: Patient is a 38-year-old male with a PMHx of Hodgkin's lymphoma (Dx 2018, on chemotherapy, last one 2 weeks ago), who presents to the emergency department with complaints of fever, associated with chills and sweats. Patient reported that he's been experiencing a nonproductive cough that has progressed to productive cough. Patient was admitted to hospitalist service for further evaluation and treatment. Patient was seen and examined at the bedside. Currently, patient reports that he's feeling slightly better, still reports a cough, however, this time he is noted that it is nonproductive. He denies chest pain or palpitations. Denies nausea, vomiting, abdominal pain. Patient does report loose stools. Denies discomfort with urination. Objective: Vitals (See below) General: Lying in bed, no acute distress, comfortable, AAOx3 HEENT: NC, AT CVS: RRR, +S1S2 Lungs: Fair air entry b/l, -w/r/r Abdomen: Soft, ND, NT Extremities: - Edema, - Calf tenderness Assessment and plan: Febrile neutropenia - Patient reports a nonproductive cough - Remains hemodynamically stable and afebrile since admission - Lab work has remained relatively stable - Respiratory panel 11/28: Negative, Blood cultures 11/27: Pending, MRSA Screen 11/28: Pending - UA without any signs of infection - Procalcitonin pending - CXR 11/27: No focal consolidation. - c/w Filgrastim (Day #2) - c/w Cefepime and Vancomycin (Day #2) Leukopenia - likely 2/2 chemotherapy - See above Normocytic anemia - Slight drop in Hg - likely 2/2 dilutional etiology - Will continue to monitor HTN - BP has improved from admission after IV fluid hydration Hodgkin's Lymphoma - Had PET scan about 1 week ago and no lymph nodes were seen so the plan for RT has been cancelled. - Currently on chemotherapy - Follows with oncology at [facility] in [place] Chemoport access difficulty - Will need re-evaluation - Will get US imaging - Will consider vascular surgery consultation DVT prophylaxis - c/w Lovenox VS,Fishbone, I+O VS, Fishbone, I+O Laboratory Tests 11/27/18 20:40 Red Blood Count 3.65 L, Mean Corpuscular Volume 86.6, Mean Corpuscular Hemoglobin 30.7, Mean Corpuscular Hemoglobin Concent 35.4, Red Cell Distribution Width 14.4, Basophils (%) (Auto) , Neutrophils # (Auto) , Calcium Level 8.4 L, Aspartate Amino Transf (AST/SGOT) 32, Alanine Aminotransferase (ALT/SGPT) 46, Alkaline Phosphatase 83, Total Bilirubin 0.4, Total Protein 6.7, Albumin 3.3 11/28/18 06:01 Red Blood Count 3.32 L, Mean Corpuscular Volume 89.2, Mean Corpuscular Hemoglobin 30.1, Mean Corpuscular Hemoglobin Concent 33.8, Red Cell Distribution Width 14.6 H, Neutrophils # (Auto) , Calcium Level 7.9 L Vital Signs Date Time Temp Pulse Resp B/P (MAP) Pulse Ox O2 Delivery O2 Flow Rate FiO2 11/28/18 13:05 20 11/28/18 06:00 97.3 79 152/72 (98) 98 11/28/18 01:31 Room Air I&O- Last 24 Hours up to 6 AM 11/28/18 06:00 Intake Total 2420 ml Output Total 600 ml Balance 1820 ml HEIDI AGUIRRE MD Nov 28, 2018 13:30
[2018-11-28 14:00] VITALS: BP 133/73
[2018-11-28 22:00] VITALS: BP 114/58
[2018-11-29] MEDS: VANCOMYCIN HCL 1,000 MG, VIAL MATE ADAPTER 1 EACH in D5W 250 ML IV SCH ×2 (02:13→09:05)
[2018-11-29] MEDS: ACETAMINOPHEN 500 MG TAB PO PRN (02:18)
[2018-11-29 05:57] LABS: HEMATOCRIT 30.2 % (42.0-52.0); HEMOGLOBIN 10.4 g/dl (13.5-17.5); MEAN CORPUSCULAR HEMOGLOBIN 30.2 pg (27.0-33.0); MEAN CORPUSCULAR HGB CONC 34.4 g/dl (32.0-36.5); MEAN CORPUSCULAR VOLUME 87.8 fl (80.0-96.0); PLATELET COUNT, AUTOMATED 184 10^3/uL (150-450); RED BLOOD COUNT 3.44 10^6/uL (4.30-6.10); WHITE BLOOD COUNT 17.7 10^3/uL (4.0-10.0)
[2018-11-29 06:00] VITALS: BP 116/56
[2018-11-29 06:17] LABS: BLOOD UREA NITROGEN 7 MG/DL (7-18); CALCIUM LEVEL 8.2 MG/DL (8.5-10.1); CARBON DIOXIDE LEVEL 25 MEQ/L (21-32); CHLORIDE LEVEL 108 MEQ/L (98-107); CREATININE FOR GFR 1.05 MG/DL (0.70-1.30); GLOMERULAR FILTRATION RATE > 60.0 (>60); GLUCOSE, FASTING 91 MG/DL (70-100); POTASSIUM SERUM 3.2 MEQ/L (3.5-5.1); SODIUM LEVEL 139 MEQ/L (136-145)
[2018-11-29 06:32] LABS: ATYPICAL LYMPH 2 % (0-5); BASOPHILS 3 % (0-4); LYMPHOCYTES 8 % (16-52); METAMYELOCYTES 3 % (0-0); MONOCYTES 12 % (0-8); NEUTROPHILS 64 % (35-75)
[2018-11-29 06:36] LABS: PLATELET ESTIMATE NORMAL (NORMAL)
[2018-11-29 06:37] LABS: ANISOCYTOSIS 1+; POLYCHROMASIA 1+
[2018-11-29] MEDS: oxyCODONE 5MG TAB PO PRN ×3 (06:41→18:47)
[2018-11-29] MEDS ORDERED: POTASSIUM CHLORIDE 10 MEQ SR TABLET PO ONE (08:15)
[2018-11-29] MEDS: ENOXAPARIN 40 MG/0.4 ML SYRINGE (J1650) SC SCH (09:04)
[2018-11-29] MEDS: SODIUM CHLORIDE 0.9% INJ 10 ML SYR IV SCH (09:05)
[2018-11-29] MEDS: GABAPENTIN 300 MG CAP PO SCH ×3 (09:05→20:50)
[2018-11-29] MEDS ORDERED: LIDOCAINE 2% MDV 20 ML VIAL As Ordered ONE (10:06)
[2018-11-29] MEDS ORDERED: BUPIVACAINE HCL 0.5% 10 ML VIAL As Ordered ONE (10:06)
[2018-11-29] MEDS ORDERED: ISOVUE-300 61% 50ML VIAL (Q9967) As Ordered ONE (10:32)
--- NOTE | 2018-11-29 10:42 | PHACANCOPD ---
PHARMACY VANCOMYCIN DOSING Pt Demographics Demographics Patient Age:38 , Weight:104.300 , Gender: male Adjusted Body Weight Date: 11/28/18, Adjusted Body Weight: [87.5] Kg Events Past 24 Hours Events Past 24 Hours: YES: Change in CrCl Vancomycin Vancomycin indication: NEUTROPENIC FEVER,LINE INFECTION Vancomycin Target Ranges: 15-20 mcg/ml Vancomycin Load Y/N: Yes Load Dose Date Time Vancomycin Load Dose: 2GM Date: 11/28 Time: 0100 Vancomycin Dose Date: 11/28/18. Current Vancomycin Dose: [1GM Q8H] Intermittent Dosing?: No Labs Micro Microbiology 11/27/18 Blood Culture - Preliminary, Resulted No growth after 24 hours . All specim... 11/27/18 Blood Culture - Preliminary, Resulted No growth after 24 hours . All specim... 11/29/18 Gram Stain, Received Pending 11/29/18 Sputum Culture, Received Pending 11/28/18 MRSA Screen, Received Pending 11/28/18 Respiratory Virus Panel (PCR) ([facility]) - Final, Complete Creatinine Clearance Date:11/28/18. Creatinine Clearance: [121.5].CALCULATED DATE 11/29/18 CALCULATED CRCL = 107.8 Assessment and Plan Maintaining Current Dose?: No Reason for dose change: Trough too low Pharmacist Note Pharmacist Note Date: 11/28/18. Pharmacist note:38 YOM,Hx of Hodgkins Lymphoma,admitted w/Neutropenic fever/possible infected Chemoport. Tx with Cefepime 2 gm Q12H and Pharmacy dosed Vancomycin. Vanco 2 gm load 11/28@0100,then 1 gram IV Q8H@ 1000. First trough to be drawm 11/29@0900, prior to the 5th dose- will continue to follow. Date 11/29/18: Patient's trough came back subtherapeutic today at 13.4. Verified with nurse that last dose of 1g vancomycin was administered at 1000 instead of 0905 that was documented. Nurse is going to fix administration time. Scr increased from yesterday to 1.05 with a current calculated CrCl of 107.8. I am increasing dose to 1250mg IV vancomycin q8h starting at 1800 to try to get closer to a trough of 15-20. I have scheduled another trough at 1700 on 11/30/18. I will continue to monitor patient and adjust treatment as needed. LAITH POOLE PHARMACY Nov 29, 2018 10:42
[2018-11-29] MEDS: CEFEPIME HCL 2 GM in D5W MINI-BAG PLUS 50 ML IV SCH (11:36)
--- NOTE | 2018-11-29 13:40 | IPNPDOC ---
Subjective Date Seen The patient was seen on 11/29/18. Subjective Chief Complaint/HPI Patient seen and examined at the bedside. He was noted to be febrile this morning. However, denies any acute complaints of pain or discomfort. States that he is feeling closer to his baseline. Objective Physical Examination General Exam: Positive: Alert, Cooperative, No Acute Distress ENT Exam: Positive: Atraumatic, Mucous membr. moist/pink Neck Exam: Negative: JVD Chest Exam: Positive: Clear to auscultation, Normal air movement Heart Exam: Positive: Rate Normal, Normal S1, Normal S2 Abdomen Exam: Positive: Soft; Negative: Tenderness Extremity Exam: Negative: Tenderness, Swelling Psych Exam: Positive: Oriented x 3 Assessment /Plan Plan/VTE VTE Prophylaxis Ordered?: Yes Plan Febrile neutropenia in a patient with Hx of Chemotherapy treatment, improved Infectious work up including; Respiratory panel 11/28: Negative, Blood cultures 11/27: Negative, MRSA Screen 11/28: Negative UA without any signs of infection Procalcitonin WNL CXR 11/27: No focal consolidation. s/p Filgrastim x 2 doses with appropriate response of WBC Cefepime and Vancomycin have been discontinued due to no active source of infection found, and work up negative with improvement of Neutropenia following Neupogen therapy Patient did have a fever early this AM after remaining afebrile yesterday--however denies any complaints at this time, and notes that he is feeling better Fevers may likely be from the patient's underlying Lymphoma as opposed to an active source of infection Normocytic anemia No indication for transfusion Will continue to monitor Hodgkin's Lymphoma Currently on chemotherapy Follows with oncology at [facility] in [place] Chemoport access difficulty Port to be exchanged today DVT prophylaxis Lovenox Disposition--anticipate discharge home in 24 hours pending continued clinical improvement. VS, I&O, 24H, Yomaira Vital Signs/I&O Vital Signs Date Time Temp Pulse Resp B/P (MAP) Pulse Ox O2 Delivery O2 Flow Rate FiO2 11/29/18 12:19 17 11/29/18 06:00 98.7 80 116/56 (76) 96 11/28/18 01:31 Room Air I&O- Last 24 Hours up to 6 AM 11/29/18 06:00 Intake Total 2520 ml Output Total 350 ml Balance 2170 ml Laboratory Data 24H LABS Laboratory Tests 2 11/29/18 05:39: Immature Granulocyte % (Auto) , White Blood Count 17.7H, Red Blood Count 3.44L, Hemoglobin 10.4L, Hematocrit 30.2L, Mean Corpuscular Volume 87.8, Mean Corpuscular Hemoglobin 30.2, Mean Corpuscular Hemoglobin Concent 34.4, Red Cell Distribution Width 14.6H, Platelet Count 184, Monocytes # (Auto) , Nucleated Red Blood Cells % (auto) 0.3H, Neutrophils 64, Band Neutrophils 8, Lymphocytes (Manual) 8L, Monocytes (Manual) 12H, Basophils (Manual) 3, Metamyelocytes 3H, Atypical Lymphocytes 2, Platelet Estimate NORMAL, Polychromasia 1+, Anisocytosis 1+, Anion Gap 6L, Glomerular Filtration Rate > 60.0, Blood Urea Nitrogen 7, Cr eatinine 1.05, Sodium Level 139, Potassium Level 3.2L, Chloride Level 108H, Carbon Dioxide Level 25, Calcium Level 8.2L 11/29/18 09:23: Vancomycin Level Trough 13.4 CBC/BMP Laboratory Tests 11/29/18 05:39 Red Blood Count 3.44 L, Mean Corpuscular Volume 87.8, Mean Corpuscular Hemoglobin 30.2, Mean Corpuscular Hemoglobin Concent 34.4, Red Cell Distribution Width 14.6 H, Monocytes # (Auto) , Calcium Level 8.2 L Microbiology Microbiology 11/27/18 Blood Culture - Preliminary, Resulted No growth after 24 hours . All specim... 11/27/18 Blood Culture - Preliminary, Resulted No growth after 24 hours . All specim... 11/29/18 Gram Stain - Final, Complete 11/29/18 Sputum Culture - Final, Complete 11/28/18 MRSA Screen - Final, Complete 11/28/18 Respiratory Virus Panel (PCR) ([facility]) - Final, Complete JUDY MCCULLOUGH MD Nov 29, 2018 13:40
[2018-11-29 14:00] VITALS: BP 129/68
[2018-11-29] MEDS ORDERED: VANCOMYCIN HCL 750 MG, VIAL MATE ADAPTER 1 EACH in D5W 250 ML IV SCH (18:00)
[2018-11-29] MEDS ORDERED: VANCOMYCIN HCL 500 MG in D5W MINI-BAG PLUS 100 ML IV SCH (19:00)
[2018-11-29 22:00] VITALS: BP 135/80
[2018-11-30] MEDS: oxyCODONE 5MG TAB PO PRN ×2 (05:22→11:22)
[2018-11-30 06:00] VITALS: BP 111/65
[2018-11-30 06:29] LABS: HEMATOCRIT 30.3 % (42.0-52.0); HEMOGLOBIN 10.3 g/dl (13.5-17.5); MEAN CORPUSCULAR HEMOGLOBIN 29.9 pg (27.0-33.0); MEAN CORPUSCULAR VOLUME 87.8 fl (80.0-96.0); PLATELET COUNT, AUTOMATED 196 10^3/uL (150-450); RED BLOOD COUNT 3.45 10^6/uL (4.30-6.10); WHITE BLOOD COUNT 18.7 10^3/uL (4.0-10.0)
[2018-11-30 06:49] LABS: BLOOD UREA NITROGEN 7 MG/DL (7-18); CALCIUM LEVEL 8.4 MG/DL (8.5-10.1); CARBON DIOXIDE LEVEL 24 MEQ/L (21-32); CHLORIDE LEVEL 109 MEQ/L (98-107); CREATININE FOR GFR 0.98 MG/DL (0.70-1.30); GLOMERULAR FILTRATION RATE > 60.0 (>60); GLUCOSE, FASTING 104 MG/DL (70-100); POTASSIUM SERUM 3.6 MEQ/L (3.5-5.1); SODIUM LEVEL 143 MEQ/L (136-145)
[2018-11-30 07:11] LABS: ATYPICAL LYMPH 2 % (0-5); EOSINOPHILS 2 % (0-5); LYMPHOCYTES 8 % (16-52); METAMYELOCYTES 4 % (0-0); MONOCYTES 17 % (0-8); MYELOCYTES 2 % (0-0); NEUTROPHILS 61 % (35-75)
[2018-11-30 07:13] LABS: PLATELET ESTIMATE NORMAL (NORMAL)
[2018-11-30] MEDS: ENOXAPARIN 40 MG/0.4 ML SYRINGE (J1650) SC SCH (09:33)
[2018-11-30] MEDS: GABAPENTIN 300 MG CAP PO SCH (09:33)
[2018-11-30] MEDS: SODIUM CHLORIDE 0.9% INJ 10 ML SYR IV SCH (09:34)
[2018-11-30 14:00] VITALS: BP 126/90
--- NOTE | 2018-11-30 16:08 | DS.PDOC ---
Discharge Summary General Date of Admission Nov 27, 2018 at 23:27 Date of Discharge 11/30/18 Discharge Summary PROCEDURES PERFORMED DURING STAY: Chemoport access difficulty s/p exchange on 11/29/18 by IR ADMITTING/DISCHARGE DIAGNOSES: Febrile neutropenia in a patient with Hx of Chemotherapy treatment Normocytic anemia Hodgkin's Lymphoma Chemoport access difficulty s/p exchange on 11/29/18 COMPLICATIONS/CHIEF COMPLAINT: Fever And Neutropenia. HISTORY OF PRESENT ILLNESS: . 38-year-old male with a PMHx of Hodgkin's lymphoma (Dx 2018, on chemotherapy, last one 2 weeks ago), who presented to the emergency department with complaints of fever, associated with chills and sweats. Patient reported that he's been experiencing a nonproductive cough that has progressed to productive cough. Patient was admitted to hospitalist service for further evaluation and treatment. Febrile neutropenia in a patient with Hx of Chemotherapy treatment, improved Infectious work up including; Respiratory panel 11/28: Negative, Blood cultures 11/27: Negative, MRSA Screen 11/28: Negative UA without any signs of infection Procalcitonin WNL CXR 11/27: No focal consolidation. s/p Filgrastim x 2 doses with appropriate response of WBC Cefepime and Vancomycin have been discontinued due to no active source of infection found, and work up negative with improvement of Neutropenia following Neupogen therapy Patient has remained afebrile over the last 24hrs and denies any complaints at this time, and notes that he is feeling better Fevers may likely be from the patient's underlying Lymphoma as opposed to an active source of infection I discussed the need for the patient to closely follow up with his PCP and oncologist in [place] for further follow-up and monitoring. He has been counseled to return to the ER for any acute emergencies. Normocytic anemia No indication for transfusion Will continue to monitor Hodgkin's Lymphoma Currently on chemotherapy Follows with oncology at [facility] in [place] Chemoport access difficulty Port to be exchanged on 11/29 DISCHARGE MEDICATIONS: Please see below. ALLERGIES: Please see below. PHYSICAL EXAMINATION ON DISCHARGE: VITAL SIGNS: Please see below. General Exam: Positive: Alert, Cooperative, No Acute Distress ENT Exam: Positive: Atraumatic, Mucous membr. moist/pink Neck Exam: Negative: JVD Chest Exam: Positive: Clear to auscultation, Normal air movement Heart Exam: Positive: Rate Normal, Normal S1, Normal S2 Abdomen Exam: Positive: Soft; Negative: Tenderness Extremity Exam: Negative: Tenderness, Swelling Psych Exam: Positive: Oriented x 3 LABORATORY DATA: Please see below. IMAGING: Clinical: Fever. Technique: PA and lateral. Comparison: 10/25/2018. Findings: Mediastinum and cardiac silhouette are within normal limits and stable. Ceacvu-C-Alzt identified with tip in the SVC/right atrium. Lung jackson are relatively clear and without focal consolidation, effusion, or pneumothorax. Skeletal structures intact. Impression: No focal consolidation. PROGNOSIS: Fair ACTIVITY: As tolerated. DIET: Regular diet DISCHARGE PLAN: DISPOSITION: . Home DISCHARGE INSTRUCTIONS: Follow-up with primary care physician within 7 days. Follow-up with [place] oncology within 2 weeks for further evaluation and management. Return to the ER for any acute emergency. DISCHARGE CONDITION: Stable. TIME SPENT ON DISCHARGE: Greater than 30 minutes. Vital Signs/I&Os Vital Signs Date Time Temp Pulse Resp B/P (MAP) Pulse Ox O2 Delivery O2 Flow Rate FiO2 11/30/18 14:00 98.6 78 17 126/90 (102) 98 11/28/18 01:31 Room Air I&O- Last 24 Hours up to 6 AM 11/30/18 06:00 Intake Total 2180 ml Balance 2180 ml Laboratory Data Labs 24H Laboratory Tests 2 11/30/18 06:13: Immature Granulocyte % (Auto) , White Blood Count 18.7H, Red Blood Count 3.45L, Hemoglobin 10.3L, Hematocrit 30.3L, Mean Corpuscular Volume 87.8, Mean Corpuscular Hemoglobin 29.9, Mean Corpuscular Hemoglobin Concent 34.0, Red Cell Distribution Width 14.8H, Platelet Count 196, Monocytes # (Auto) , Nucleated Red Blood Cells % (auto) 0.2H, Neutrophils 61, Band Neutrophils 4, Lymphocytes (Manual) 8L, Monocytes (Manual) 17H, Eosinophils (Manual) 2, Metamyelocytes 4H, Myelocytes 2H, Atypical Lymphocytes 2, Platelet Estimate NORMAL, Anion Gap 10, Glomerular Filtration Rate > 60.0, Blood Urea Nitrogen 7, Creatinine 0.98, Sodium Level 143, Potassium Level 3.6, Chloride Level 109H, Carbon Dioxide Level 24, Calcium Level 8.4L CBC/BMP Laboratory Tests 11/30/18 06:13 Red Blood Count 3.45 L, Mean Corpuscular Volume 87.8, Mean Corpuscular Hemoglobin 29.9, Mean Corpuscular Hemoglobin Concent 34.0, Red Cell Distribution Width 14.8 H, Monocytes # (Auto) , Calcium Level 8.4 L Microbiology Microbiology 11/27/18 Blood Culture - Preliminary, Resulted No Growth after 48 hours. All Specime... 11/27/18 Blood Culture - Preliminary, Resulted No Growth after 48 hours. All Specime... 11/29/18 Gram Stain - Final, Complete 11/29/18 Sputum Culture - Final, Complete 11/28/18 MRSA Screen - Final, Complete 11/28/18 Respiratory Virus Panel (PCR) (SIMON) - Final, Complete Discharge Medications Scheduled Gabapentin (Gabapentin) 300 Mg Capsule, 300 MG PO TID, (Reported) Loratadine (Claritin) 10 Mg Tablet, 10 MG PO DAILY, (Reported) Scheduled PRN Albuterol Sulfate (Ventolin Hfa) 18 Gm Hfa.aer.ad, 2 PUFF INH QID PRN for SHORTNESS OF BREATH, (Reported) Fluticasone Propionate (Flonase Allergy Relief) 9.9 Ml [place].susp, 2 SPRAYS NA DAILY PRN for NASAL CONGESTION, (Reported) Nicotine Polacrilex (Nicotine Gum) 2 Mg Gum, 2 MG MT Q1H PRN for SMOKING CESSATION, (Reported) Oxycodone HCl (Oxycodone HCl) 5 Mg Tablet, 5 MG PO Q8H PRN for PAIN, (Reported) Allergies Coded Allergies: amoxicillin (Verified Allergy, Unknown, 11/27/18) tramadol (Verified Allergy, Unknown, 11/27/18) JUDY MCCULLOUGH MD Nov 30, 2018 16:08
--- NOTE | 2018-12-12 08:09 | REPIR ---
DATE OF PROCEDURE: 11/29/2089 ATTENDING SURGEON: Dr. Yves Arana WARD SERVICE SUPERVISOR: Jimena Meyrs and Arabella Wharton PREOPERATIVE DIAGNOSIS: Dysfunctional right internal jugular vein dual-lumen tunneled central venous catheter with subcutaneous port. POSTOPERATIVE DIAGNOSIS: Dysfunctional right internal jugular vein dual-lumen tunneled central venous catheter with subcutaneous port. PROCEDURE: Tunneled central venous catheter with subcutaneous port catheter flow study, right internal jugular vein angioplasty with 5 x 120 balloon and 12 x 80 balloon, right innominate vein angioplasty with 5 x 120 balloon and 12 x 80 balloon, superior vena cava angioplasty with 5 x 120 balloon and 12 x 80 balloon, right atrial angioplasty with 5 x 120 balloon and 12 x 80 balloon, insertion of a new dual lumen port with 24 cm length catheter. INDICATION: The patient is a 38-year-old male with a Port-A-Cath, which has been non functioning and will undergo a catheter flow study with possible exchange. ANESTHESIA: Local with 10 mL of 2% lidocaine mixed with 0.5% Marcaine. FLUORO TIME: 1.7 minutes. CONTRAST: 12 mL of Isovue-300. HEPARIN: None. COMPLICATIONS: None. DRAINS: None. SPECIMENS: None. IMPLANTS: None. PROCEDURE: The patient was taken to the angiography suite, placed supine on the angiography room table and then prepped and draped in the standard surgical fashion. The port was cannulated and a catheter flow study was performed showing a long fibrin sheath. The port was then removed over a wire and then the right internal jugular vein, innominate vein, superior vena cava, and right atrium were angioplastied with a 5 x 120 balloon and a 12 x 80 balloon with a followup venogram showing resolution of the fibrin sheath. A new port was placed with a 24 cm length catheter with a dual-lumen PowerPort placed. Both ports were aspirated and noted to aspirate easily and flushed with heparinized saline. The port was placed in the pocket and then the incision was closed using 3-0 Monocryl in an inverted interrupted fashion. Steri-Strips and dressings were applied. The patient tolerated procedure well. All instrument, sponge, needle counts were correct at the end the case. There were no complications. Dr. Arana was present for and directed the entire case. The patient was transferred to the holding area and subsequently discharged in stable condition.
== END 2018-11-30 15:20 | disposition home or self-care (01) | DRG 950 ==
LOC: M ED 19:36 → M ED INP 23:27 → M MSPAV 11-28 01:44
PROVIDERS: ADMIT Internal Medicine Nephrology; ATTEND Internal Medicine
PROC: 3E043KZ Introduction of Other Diagnostic Substance into Central Vein, Percutaneous Approach (ICD-10-PCS; principal; 2018-11-29)
PROC: 057M3ZZ Dilation of Right Internal Jugular Vein, Percutaneous Approach (ICD-10-PCS; 2018-11-29)
PROC: 05733ZZ Dilation of Right Innominate Vein, Percutaneous Approach (ICD-10-PCS; 2018-11-29)
PROC: 027V3ZZ Dilation of Superior Vena Cava, Percutaneous Approach (ICD-10-PCS; 2018-11-29)
PROC: 057Y3ZZ Dilation of Upper Vein, Percutaneous Approach (ICD-10-PCS; 2018-11-29)
PROC: 0JPT3WZ Removal of Totally Implantable Vascular Access Device from Trunk Subcutaneous Tissue and Fascia, Percutaneous Approach (ICD-10-PCS; 2018-11-29)
PROC: 0JH63WZ Insertion of Totally Implantable Vascular Access Device into Chest Subcutaneous Tissue and Fascia, Percutaneous Approach (ICD-10-PCS; 2018-11-29)
PROC: 02PY33Z Removal of Infusion Device from Great Vessel, Percutaneous Approach (ICD-10-PCS; 2018-11-29)
PROC: 02H633Z Insertion of Infusion Device into Right Atrium, Percutaneous Approach (ICD-10-PCS; 2018-11-29)
PROC: B2141ZZ Fluoroscopy of Right Heart using Low Osmolar Contrast (ICD-10-PCS; 2018-11-29)
DX: D70.1 Agranulocytosis secondary to cancer chemotherapy (principal); C81.90 Hodgkin lymphoma, unspecified, unspecified site; I95.9 Hypotension, unspecified; T82.828A Fibrosis due to vascular prosthetic devices, implants and grafts, initial encounter; D64.9 Anemia, unspecified; Z79.899 Other long term (current) drug therapy; Z88.0 Allergy status to penicillin; Z88.8 Allergy status to other drugs, medicaments and biological substances; F17.200 Nicotine dependence, unspecified, uncomplicated; Y83.2 Surgical operation with anastomosis, bypass or graft as the cause of abnormal reaction of the patient, or of later complication, without mention of misadventure at the time of the procedure

== ENCOUNTER 2019-01-07 21:57 | Inpatient (IN) | payer OTHER ==
[~2019-01-07] VITALS: Ht 182.9 cm; Wt 105.6 kg
[~2019-01-07 21:57] MED LIST changes: +CLAR10TA7 PO; +GABA-843 PO; +NICO2GUM MT
[2019-01-07] MEDS ORDERED: ONDA8TAB7 (22:17)
[2019-01-07] MEDS ORDERED: NS 1,000 ML IV ONE ×2 (22:45→23:45)
[2019-01-07] MEDS ORDERED: ACETAMINOPHEN 325 MG TAB PO ONE (22:45)
[2019-01-07 22:56] LABS: BASO # 0.1 10^3/uL (0.0-0.2); BASO % 0.5 % (0.0-1.0); EOS % 0.1 % (0.0-3.0); HEMATOCRIT 30.5 % (42.0-52.0); HEMOGLOBIN 10.3 g/dl (13.5-17.5); LYMPH # 0.9 10^3/uL (1.5-4.5); LYMPH % 5.5 % (24.0-44.0); MEAN CORPUSCULAR HEMOGLOBIN 29.4 pg (27.0-33.0); MEAN CORPUSCULAR HGB CONC 33.8 g/dl (32.0-36.5); MEAN CORPUSCULAR VOLUME 87.1 fl (80.0-96.0); MONO # 0.4 10^3/uL (0.0-0.8); MONO % 2.5 % (0.0-5.0); NEUTROPHILS # 14.7 10^3/uL (1.8-7.7); NEUTROPHILS % 90.7 % (36.0-66.0); PLATELET COUNT, AUTOMATED 184 10^3/uL (150-450); WHITE BLOOD COUNT 16.3 10^3/uL (4.0-10.0)
[2019-01-07 23:02] LABS: INR 1.15; PROTHROMBIN TIME 14.4 SECONDS (11.8-14.0)
[2019-01-07 23:15] LABS: ALT/SGPT 46 U/L (12-78); BILIRUBIN,DIRECT 0.4 MG/DL (0.0-0.2); BILIRUBIN,TOTAL 1.1 MG/DL (0.2-1.0); BLOOD UREA NITROGEN 16 MG/DL (7-18); CALCIUM LEVEL 7.9 MG/DL (8.5-10.1); CARBON DIOXIDE LEVEL 23 MEQ/L (21-32); CHLORIDE LEVEL 105 MEQ/L (98-107); CK-MB VALUE MASS 1.9 NG/ML (<3.6); CPK CREATINE PHOSPHOKINASE 26 U/L (39-308); CREATININE FOR GFR 1.16 MG/DL (0.70-1.30); GLOMERULAR FILTRATION RATE > 60.0 (>60); GLUCOSE, FASTING 120 MG/DL (70-100); MB/CK RELATIVE INDEX 7.31 (< OR =4); POTASSIUM SERUM 3.3 MEQ/L (3.5-5.1); SODIUM LEVEL 138 MEQ/L (136-145); TOTAL PROTEIN 5.8 GM/DL (6.4-8.2); TROPONIN I 0.18 NG/ML (< 0.10)
[2019-01-07 23:21] LABS: VENOUS BASE EXCESS -3.8 (-2.0-2.0); VENOUS HCO3 19.7 MEQ/L (23.0-27.0); VENOUS O2 SATURATION 76.2 % (60.0-80.0); VENOUS PARTIAL PRESSURE CO2 30.9 mmHg (38.0-50.0); VENOUS PARTIAL PRESSURE O2 41.6 mmHg (30.0-50.0); VENOUS PH 7.423 UNITS (7.330-7.430); VENOUS STANDARD HCO3 20.9 MEQ/L; VENOUS TOTAL CO2 20.7 MEQ/L (24.0-28.0)
[2019-01-07] MEDS ORDERED: CEFEPIME HCL 2 GM in D5W MINI-BAG PLUS 50 ML IV ONE (23:45)
[2019-01-08] VITALS (35 sets, daily range): BP systolic 90–129; BP diastolic 50–80
[2019-01-08] MEDS ORDERED: NS 1,000 ML IV ONE
[2019-01-08] MEDS ORDERED: NICO4GUM47 MT (00:22)
[2019-01-08] MEDS ORDERED: HYDR2.5C TOP (00:22)
[2019-01-08] MEDS ORDERED: NS 1,000 ML IV SCH (01:30)
[2019-01-08] MEDS ORDERED: VANCOMYCIN HCL 1,000 MG, VIAL MATE ADAPTER 1 EACH in D5W 250 ML IV ONE ×2 (01:30→03:00)
[2019-01-08] MEDS ORDERED: SODIUM CHLORIDE 0.9% 1000ML IV ONE (01:30)
[2019-01-08] MEDS ORDERED: ONDANSETRON 4MG/2ML VIAL (J2405) IV PRN (01:45)
[2019-01-08] MEDS ORDERED: NOREPINEPHRINE 4 MG/4 ML AMP As Ordered ONE (02:22)
[2019-01-08] MEDS ORDERED: NOREPINEPHRINE BITARTRATE 8 MG in D5W 492 ML IV SCH (02:30)
--- NOTE | 2019-01-08 02:54 | HPEPDOC ---
General Date of Admission 01/08/19 Date of Service: Jan 08, 2019 Chief Complaint The patient is a 38-year-old male admitted with a reason for visit of Weakness/General Medical Compl. Source: Patient, RN/MD, Old records Exam Limitations: No limitations Severity: Severe History of Present Illness 38 year old male with Hodgkin's lymphoma diagnosed in january 2018 on chemotherapy last one was on 4 days ago presented to the ED not feeling well for 2 days. He has been feeling very weak and tired with no energy. He has developed a cough which is productive of thick creamish phlegm. He denied any fever or chills. He has been so weak that has not been able to get out of bed today. He had his port changed on 11/29/17 as it had fibrin sheath and was not working well. Denied any chest pain or SOB. He also complained of intermittent sharp abdominal pain in the left upper quadrant and left lumber region about 5/10 in intensity. He does not have any associated diarrhea or vomiting. In ED his bp has been 90s/50s he has been getting fluid boluses. He is admitted for septic chock. Home Medications Scheduled Gabapentin (Gabapentin) 300 Mg Capsule, 300 MG PO TID, (Reported) Hydrocortisone (Hydrocortisone) 453.6 Gm Cream..g., 1 DOSE TOP BID, (Reported) USES ON CHEST Loratadine (Claritin) 10 Mg Tablet, 10 MG PO DAILY, (Reported) Scheduled PRN Albuterol Sulfate (Ventolin Hfa) 18 Gm Hfa.aer.ad, 2 PUFF INH QID PRN for SHORTNESS OF BREATH, (Reported) Fluticasone Propionate (Flonase Allergy Relief) 9.9 Ml [place].susp, 2 SPRAYS NA DAILY PRN for NASAL CONGESTION, (Reported) Nicotine Polacrilex (Nicotine Gum) 4 Mg Gum, 4 MG MT Q1H PRN for SMOKING CESSATION, (Reported) Oxycodone HCl (Oxycodone HCl) 5 Mg Tablet, 5 MG PO Q8H PRN for PAIN, (Reported) Allergies Coded Allergies: amoxicillin (Verified Allergy, Unknown, 11/27/18) tramadol (Verified Allergy, Unknown, 11/27/18) Past Medical History Medical History Hodgkin's Lymphoma, kidney stones Surgical History 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 GRANDFATHER PROSTATE CANCER. A-FIB/CHADSVASC A-FIB History Current/History of A-Fib/PAF?: No Review of Systems Constitutional: Reports: Chills, Malaise, Weakness, Fatigue Eyes: Denies: Pain, Vision change ENT: Denies: Head Aches, Ear Pain, Dysphagia Skin: Denies: Rash, Lesions, Breakdown Pulmonary: Reports: Cough; Denies: Dyspnea, Pleuritic Chest Pain Cardiovascular: Reports: Lt Headedness; Denies: Chest Pain, Palpitations, Orthopnea, Paroxysmal Noc. Dyspnea Gastrointestinal: Reports: Nausea, Abdominal Pain; Denies: Vomiting, Diarrhea, Constipation, Melena, Hematochezia Genitourinary: Denies: Dysuria, Frequency, Incontinence, Retention Hematologic: Denies: Bruising, Bleeding Excessively Musculoskeletal: Denies: Neck Pain, Back Pain, Joint Pain, Muscle Pain, Spasms Neurological: Reports: Weakness Physical Examination General Exam: Positive: Alert, Cooperative, Mild Distress Eye Exam: Positive: PERRLA, Conjunctiva & lids normal, EOMI; Negative: Sclera icteric ENT Exam: Positive: Atraumatic, Mucous membr. moist/pink, Pharynx Normal Neck Exam: Positive: Supple; Negative: JVD, thyromegaly Chest Exam: Positive: Clear to auscultation, Normal air movement, Other (chemo port present) Heart Exam: Positive: Tachycardic, Regular Rhythm, Normal S1, Normal S2; Negative: Murmurs, Rubs Telemetry: Positive: No significant arrhythmia Abdomen Exam: Positive: BS Hyperactive, Soft, Tenderness (in the left upper quadrnt and left lumber region), Other (No guarding or rigidity) Extremity Exam: Positive: Normal pulses; Negative: Clubbing, Cyanosis, Edema Neuro Exam: Positive: Normal Speech, Normal Tone, Sensation Intact Psych Exam: Positive: Memory Intact, Oriented x 3 Vital Signs Vital Signs Date Time Temp Pulse Resp B/P (MAP) Pulse Ox O2 Delivery O2 Flow Rate FiO2 01/08/19 00:14 107 92/56 (68) 01/07/19 23:33 22 93 Room Air 01/07/19 22:59 99.0 Laboratory Data Labs 24H Laboratory Tests 2 01/07/19 22:37: Immature Granulocyte % (Auto) 0.7, White Blood Count 16.3H, Red Blood Count 3.50L, Hemoglobin 10.3L, Hematocrit 30.5L, Mean Corpuscular Volume 87.1, Mean Corpuscular Hemoglobin 29.4, Mean Corpuscular Hemoglobin Concent 33.8, Red Cell Distribution Width 15.5H, Platelet Count 184, Neutrophils (%) (Auto) 90.7H, Lymphocytes (%) (Auto) 5.5L, Monocytes (%) (Auto) 2.5, Eosinophils (%) (Auto) 0.1, Basophils (%) (Auto) 0.5, Neutrophils # (Auto) 14.7H, Lymphocytes # (Auto) 0.9L, Monocytes # (Auto) 0.4, Eosinophils # (Auto) 0.0, Basophils # (Auto) 0.1, Nucleated Red Blood Cells % (auto) 0.0, Prothrombin Time 14.4H, Prothromb Time International Ratio 1.15, Anion Gap 10, Glomerular Filtration Rate > 60.0, Calcium Level 7.9L, Aspartate Amino Transf (AST/SGOT) 22, Alanine Aminotransferase (ALT/SGPT) 46, Alkaline Phosphatase 68, Total Bilirubin 1.1H, Direct Bilirubin 0.4H, Total Creatine Kinase 26L, Creatine Kinase MB 1.9, Creatine Kinase MB Relative Index 7.31H, Troponin I 0.18H, Total Protein 5.8L, Albumin 3.0L, Albumin/Globulin Ratio 1.07 01/07/19 22:41: Lactic Acid Level 2.8*H 01/07/19 23:12: Blood Gas Bicarbonate Standard 20.9, Venous Blood pH 7.423, Venous Blood Partial Pressure CO2 30.9L, Venous Blood Partial Pressure O2 41.6, Venous Blood Total Carbon Dioxide 20.7L, Venous Blood HCO3 19.7L, Venous Blood Oxygen Saturation 76.2, Venous Blood Base Excess -3.8L CBC/BMP Laboratory Tests 01/07/19 22:37 Red Blood Count 3.50 L, Mean Corpuscular Volume 87.1, Mean Corpuscular Hemoglobin 29.4, Mean Corpuscular Hemoglobin Concent 33.8, Red Cell Distribution Width 15.5 H, Neutrophils (%) (Auto) 90.7 H, Lymphocytes (%) (Auto) 5.5 L, Monocytes (%) (Auto) 2.5, Eosinophils (%) (Auto) 0.1, Basophils (%) (Auto) 0.5, Neutrophils # (Auto) 14.7 H, Lymphocytes # (Auto) 0.9 L, Monocytes # (Auto) 0.4, Eosinophils # (Auto) 0.0, Basophils # (Auto) 0.1 Microbiology Microbiology 01/07/19 Blood Culture, Received Pending 01/07/19 Blood Culture, Received Pending Assessment/Plan 38 year old male with Hodgkin's lymphoma diagnosed in january 2018 on chemotherapy last one was on 4 days ago presented to the ED not feeling well for 2 days. He has been feeling very weak and tired with no energy. He has developed a cough which is productive of thick creamish phlegm. He denied any fever or chills. He has been so weak that has not been able to get out of bed today. He had his port changed on 11/29/17 as it had fibrin sheath and was not working well. Denied any chest pain or SOB. He also complained of intermittent sharp abdominal pain in the left upper quadrant and left lumber region about 5/10 in intensity. He does not have any associated diarrhea or vomiting. In ED his bp has been 90s/50s he has been getting fluid boluses. He is admitted for septic chock. Sepsis with septic shock will give cefepime and vanco cultures have been ordered echo ordered CXR no definite infection, will get abd and pelvis ct with contrast. rule out infective endocarditis or chemo port infection. will get ua., sputum culture. received 4 liter bolus started on levophed continue IVF Hodgkin's Lymphoma treatment at [facility] On chemotherapy. Last chesmo was 4 days ago. Kidney stones no issues at present Plan / VTE VTE Prophylaxis Ordered?: Yes KAILEY GARZA MD Jan 08, 2019 00:41
[2019-01-08] MEDS: POTASSIUM CHLORIDE INJ 40 MEQ in NS 1,000 ML IV SCH ×2 (03:32→14:51)
[2019-01-08 04:56] LABS: CPK CREATINE PHOSPHOKINASE 28 U/L (39-308); MB/CK RELATIVE INDEX 10.71 (< OR =4); TROPONIN I 0.24 NG/ML (< 0.10)
--- NOTE | 2019-01-08 05:23 | PHACANCOPD ---
PHARMACY VANCOMYCIN DOSING Pt Demographics Demographics Patient Age:38 , Weight:106.500 , Gender: male Adjusted Body Weight Date: 01/08/19, Adjusted Body Weight: [87.5] Kg Vancomycin Vancomycin indication: SEPTIC SHOCK Vancomycin Target Ranges: 15-20 mcg/ml Vancomycin Load Y/N: Yes Load Dose Date Time Vancomycin Load Dose: 2GM Date: 01/08 Time: 2-4AM Vancomycin Dose Date: 01/08/19. Current Vancomycin Dose: [1GM Q8H] Intermittent Dosing?: No Labs Labs Laboratory Tests 01/07/19 22:37 Red Blood Count 3.50 L, Mean Corpuscular Volume 87.1, Mean Corpuscular Hemoglobin 29.4, Mean Corpuscular Hemoglobin Concent 33.8, Red Cell Distribution Width 15.5 H, Neutrophils (%) (Auto) 90.7 H, Lymphocytes (%) (Auto) 5.5 L, Monocytes (%) (Auto) 2.5, Eosinophils (%) (Auto) 0.1, Basophils (%) (Auto) 0.5, Neutrophils # (Auto) 14.7 H, Lymphocytes # (Auto) 0.9 L, Monocytes # (Auto) 0.4, Eosinophils # (Auto) 0.0, Basophils # (Auto) 0.1 Micro Microbiology 01/07/19 Blood Culture, Received Pending 01/07/19 Blood Culture, Received Pending 01/08/19 Gram Stain, Received Pending 01/08/19 Sputum Culture, Received Pending Creatinine Clearance Date:01/08/19. Creatinine Clearance: [>100].CALCULATED Assessment and Plan Maintaining Current Dose?: Yes Reason for dose change: No Dose Change Pharmacist Note Pharmacist Note Date: 01/08/19. Pharmacist note:38 YOM <diagnosed w/Hodgkins Lymphome 01/20, Admitted w/Sepsis. WT102.3kg(ABW=87.5kg) Allergies: tramadol,amoxicillin,SCR=1.16,CHQK=388.8(calculated).Receiving Cefepime 2 gm Q12H and Pharmacy dosed Vancomycin. 2 gram Vancomycin load administered this morning@2-4am, them will begin Vancomycin regimen of 1 gram IV [id number]. First trough is due 12/09@12midnight.(prior to the 4th dose)Will continue to follow labs and adjust Vanco dose as needed. AVNI BOLDEN PHARMACY Jan 08, 2019 05:23
[2019-01-08] MEDS ORDERED: ENOXAPARIN 40 MG/0.4 ML SYRINGE (J1650) SC SCH (06:00)
[2019-01-08] MEDS: GASTROGRAFIN SOLUTION 30ML PO SCH ×2 (06:17→06:44)
[2019-01-08] MEDS: ACETAMINOPHEN 500 MG TAB PO PRN ×2 (06:17→21:43)
[2019-01-08 07:29] LABS: HEMATOCRIT 30.2 % (42.0-52.0); HEMOGLOBIN 9.7 g/dl (13.5-17.5); MEAN CORPUSCULAR HEMOGLOBIN 29.3 pg (27.0-33.0); MEAN CORPUSCULAR HGB CONC 32.1 g/dl (32.0-36.5); MEAN CORPUSCULAR VOLUME 91.2 fl (80.0-96.0); PLATELET COUNT, AUTOMATED 173 10^3/uL (150-450); RED BLOOD COUNT 3.31 10^6/uL (4.30-6.10); WHITE BLOOD COUNT 14.2 10^3/uL (4.0-10.0)
--- NOTE | 2019-01-08 07:43 | REP ---
Clinical: Cough and dyspnea . Comparison: 11/27/2018 . Findings: Eicaif-S-Tddm identified extending to the SVC/right atrium. The mediastinum and cardiac silhouette are stable and within normal limits for portable technique. The lung jackson are clear without acute consolidation, effusion, or pneumothorax. Skeletal structures are intact. Impression: No acute cardiopulmonary process appreciated. Electronically Signed by Austin Benson MD 01/08/2019 07:35 A
[2019-01-08] MEDS ORDERED: ISOVUE-370 76% 100ML VIAL (Q9967) As Ordered ONE ×2 (08:00→16:08)
[2019-01-08 08:16] LABS: BLOOD UREA NITROGEN 15 MG/DL (7-18); CALCIUM LEVEL 7.5 MG/DL (8.5-10.1); CARBON DIOXIDE LEVEL 22 MEQ/L (21-32); CHLORIDE LEVEL 108 MEQ/L (98-107); CREATININE FOR GFR 1.09 MG/DL (0.70-1.30); GLOMERULAR FILTRATION RATE > 60.0 (>60); GLUCOSE, FASTING 134 MG/DL (70-100); POTASSIUM SERUM 3.3 MEQ/L (3.5-5.1); SODIUM LEVEL 139 MEQ/L (136-145)
[2019-01-08] MEDS: VANCOMYCIN HCL 1,000 MG, VIAL MATE ADAPTER 1 EACH in D5W 250 ML IV SCH ×2 (09:10→17:56)
--- NOTE | 2019-01-08 10:01 | REP ---
CT ABDOMEN AND PELVIS WITH ORAL AND IV CONTRAST: TECHNIQUE: Axial contrast enhanced images from the lung bases to the pubic symphysis using 100 mL Isovue 370 intravenous contrast material with multiplanar reformations. Visualized lung bases demonstrate mild patchy atelectasis or infiltrate in the posterior costophrenic sulci bilaterally. The liver demonstrates diffuse fatty infiltration. There appears to be mild to moderate edema in the periportal region. Gallbladder wall may be thickened. No definite intraluminal stones are seen. The spleen is normal in size with no intrinsic abnormality. The adrenals, pancreas and kidneys are unremarkable. There is no hydronephrosis. There is no abdominal aortic aneurysm. There is no adenopathy. There is no free air or free fluid. There is no bowel wall thickening. The appendix is normal. No pelvic mass is seen. The urinary bladder is unremarkable. IMPRESSION: Obviously the study is not optimized to evaluate the pulmonary arteries but on the most superior images obtained, of the visualized lung bases, there appear to be filling defects in the lower lobe pulmonary arterial branches and I suspect bilateral pulmonary emboli. This could be confirmed with CT angiogram of the chest. In the posterior costophrenic sulci peripherally, there are mild patchy consolidative opacities compatible with mild bilateral lower lobe atelectasis/infiltrate. There is diffuse fatty infiltration of the liver. There is periportal edema. There may be gallbladder wall thickening. Further evaluation may be made with right upper quadrant ultrasound. Electronically Signed by Reinier Wetzel MD 01/08/2019 07:19 P
[2019-01-08] MEDS ORDERED: ENOXAPARIN 80 MG/0.8 ML SYRINGE (J1650) SC ONE (10:45)
[2019-01-08] MEDS: CEFEPIME HCL 2 GM in D5W MINI-BAG PLUS 50 ML IV SCH ×2 (12:29→23:26)
[2019-01-08 12:59] LABS: CK-MB VALUE MASS 3.5 NG/ML (<3.6); MB/CK RELATIVE INDEX 9.21 (< OR =4); TROPONIN I 0.33 NG/ML (< 0.10)
[2019-01-08] MEDS: oxyCODONE 5MG TAB PO PRN ×2 (14:14→22:22)
[2019-01-08] MEDS: KCL 40MEQ in NS 1000ML 1,000 ML IV SCH ×2 (14:53→23:46)
--- NOTE | 2019-01-08 15:50 | IPNPDOC ---
Subjective Date Seen The patient was seen on 01/08/19. Subjective Chief Complaint/HPI Patient seen and examined at the bedside. States that he is feeling better this morning. Denies any complaints of chest pain, palpitations. However, does endorse some shortness of breath upon exertion. The patient is hemodynamically stable this morning, and did not require pressors overnight. Objective Physical Examination General Exam: Positive: Alert, Cooperative, No Acute Distress Eye Exam: Negative: Sclera icteric ENT Exam: Positive: Atraumatic, Mucous membr. moist/pink Neck Exam: Negative: JVD Chest Exam: Positive: Clear to auscultation, Normal air movement, Other (chemo port present) Heart Exam: Positive: Rate Normal, Regular Rhythm, Normal S1, Normal S2; Negative: Rubs Telemetry: Positive: Sinus Abdomen Exam: Positive: Soft, Other (No guarding or rigidity); Negative: Tenderness Extremity Exam: Negative: Tenderness, Swelling Neuro Exam: Positive: Normal Speech Psych Exam: Positive: Mental status NL, Mood NL, Oriented x 3 Assessment /Plan Plan/VTE VTE Prophylaxis Ordered?: Yes Plan Hypotension possibly 2/[address] Abd/Pel notable for doing defect in the lower pulmonary arterial branches bilaterally --- CT angiogram of the chest ordered for further evaluation Ultrasound of the legs bilateral ordered 2-D echocardiogram ordered The patient's blood pressure improved overnight with IV fluid hydration, and he did not require any pressor therapy Denies any chest pain, but does endorse some SOB upon exertion I did discuss the case with Dr. Arana of Vascular Surgery, who will see the patient in consultation and evaluate for tPA Cont therapeutic dose of 1mg/kg Lovenox SC BID for now Elevated Troponin Level 2/2 Above Cont to monitor on Telemetry, serial troponin markers ordered Possible Mild bilateral lower lobe atelectasis vs infiltrates WBC elevated, however the patient did receive neupogen in the outpatient setting but this was towards the end of November Patient remains afebrile Cont Vanco/Cefepime for now We will cont to monitor Hodgkin's Lymphoma Patient has been getting chemotherapy [id number] since August Last session was on 01/03/19 in [place], [place] Follow up as outpatient DVT Prophylaxis Lovenox SC ordered VS, I&O, 24H, Fishbone Vital Signs/I&O Vital Signs Date Time Temp Pulse Resp B/P (MAP) Pulse Ox O2 Delivery O2 Flow Rate FiO2 01/08/19 14:44 18 01/08/19 13:00 102 123/80 (94) 97 01/08/19 12:00 96.1 01/08/19 02:25 Room Air I&O- Last 24 Hours up to 6 AM 01/08/19 06:00 Intake Total 4840 ml Output Total 500 ml Balance 4340 ml Laboratory Data 24H LABS Laboratory Tests 2 01/07/19 22:37: Immature Granulocyte % (Auto) 0.7, White Blood Count 16.3H, Red Blood Count 3.50L, Hemoglobin 10.3L, Hematocrit 30.5L, Mean Corpuscular Volume 87.1, Mean Corpuscular Hemoglobin 29.4, Mean Corpuscular Hemoglobin Concent 33.8, Red Cell Distribution Width 15.5H, Platelet Count 184, Neutrophils (%) (Auto) 90.7H, Lymphocytes (%) (Auto) 5.5L, Monocytes (%) (Auto) 2.5, Eosinophils (%) (Auto) 0.1, Basophils (%) (Auto) 0.5, Neutrophils # (Auto) 14.7H, Lymphocytes # (Auto) 0.9L, Monocytes # (Auto) 0.4, Eosinophils # (Auto) 0.0, Basophils # (Auto) 0.1, Nucleated Red Blood Cells % (auto) 0.0, Prothrombin Time 14.4H, Prothromb Time International Ratio 1.15, Anion Gap 10, Glomerular Filtration Rate > 60.0, Calcium Level 7.9L, Aspartate Amino Transf (AST/SGOT) 22, Alanine Aminotransfer ase (ALT/SGPT) 46, Alkaline Phosphatase 68, Total Bilirubin 1.1H, Direct Bilirubin 0.4H, Total Creatine Kinase 26L, Creatine Kinase MB 1.9, Creatine Kinase MB Relative Index 7.31H, Troponin I 0.18H, Total Protein 5.8L, Albumin 3.0L, Albumin/Globulin Ratio 1.07, Procalcitonin 0.06 01/07/19 22:41: Lactic Acid Level 2.8*H 01/07/19 23:12: Blood Gas Bicarbonate Standard 20.9, Venous Blood pH 7.423, Venous Blood Partial Pressure CO2 30.9L, Venous Blood Partial Pressure O2 41.6, Venous Blood Total Carbon Dioxide 20.7L, Venous Blood HCO3 19.7L, Venous Blood Oxygen Saturation 76.2, Venous Blood Base Excess -3.8L 01/08/19 03:23: Urine Color YELLOW, Urine Appearance CLEAR, Urine pH 6.0, Urine Specific [place] 1.014, Urine Protein NEGATIVE, Urine Glucose (UA) NEGATIVE, Urine Ketones NEGATIVE, Urine Blood NEGATIVE, Urine Nitrite NEGATIVE, Urine Bilirubin NEGATIVE, Urine Urobilinogen 0.2, Urine Leukocyte Esterase NEGATIVE, Urine WBC (Auto) 2, Urine RBC (Auto) 1, Urine Hyaline Casts (Auto) 0, Urine Bacteria (Auto) NEGATIVE, Urine Squamous Epithelial Cells 0, Urine Mucus (Auto) SMALL, Urine Sperm (Auto) 01/08/19 03:35: Nucleated Red Blood Cells % (auto) 0.0, Anion Gap 9, Glomerular Filtration Rate > 60.0, Lactic Acid Followup at 4 Hours 2.3*H, Blood Urea Nitrogen 15, Creatinine 1.09, Sodium Level 139, Potassium Level 3.3L, Chloride Level 108H, Carbon Dioxide Level 22, Calcium Level 7.5L, Total Creatine Kinase 28L, Creatine Kinase MB 3.0, Creatine Kinase MB Relative Index 10.71H, Troponin I 0.24#H 01/08/19 12:08: Total Creatine Kinase 38L, Creatine Kinase MB 3.5, Creatine Kinase MB Relative Index 9.21H, Troponin I 0.33#H CBC/BMP Laboratory Tests 01/07/19 22:37 Red Blood Count 3.50 L, Mean Corpuscular Volume 87.1, Mean Corpuscular Hemoglobin 29.4, Mean Corpuscular Hemoglobin Concent 33.8, Red Cell Distribution Width 15.5 H, Neutrophils (%) (Auto) 90.7 H, Lymphocytes (%) (Auto) 5.5 L, Monocytes (%) (Auto) 2.5, Eosinophils (%) (Auto) 0.1, Basophils (%) (Auto) 0.5, Neutrophils # (Auto) 14.7 H, Lymphocytes # (Auto) 0.9 L, Monocytes # (Auto) 0.4, Eosinophils # (Auto) 0.0, Basophils # (Auto) 0.1 01/08/19 03:35 Red Blood Count 3.31 L, Mean Corpuscular Volume 91.2, Mean Corpuscular Hemoglobin 29.3, Mean Corpuscular Hemoglobin Concent 32.1, Red Cell Distribution Width 15.9 H, Calcium Level 7.5 L, Total Creatine Kinase 28 L Microbiology Microbiology 01/07/19 Blood Culture, Received Pending 01/07/19 Blood Culture, Received Pending 01/08/19 Gram Stain - Final, Complete 01/08/19 Sputum Culture - Final, Complete JUDY MCCULLOUGH MD Jan 08, 2019 15:50
[2019-01-08] MEDS ORDERED: HEPARIN SOD (PORCINE) 5000 UNITS/ML VIAL IV PRN (17:15)
[2019-01-08] MEDS: HEPARIN DRIP 25,000 UNITS in APPROPRIATE DILUENT 1 EA IV SCH ×2 (17:56→19:00)
--- NOTE | 2019-01-08 19:16 | REP ---
CT ANGIOGRAM CHEST: TECHNIQUE: Axial contrast enhanced images from the thoracic inlet to the upper abdomen using 100 mL Isovue 370 intravenous contrast material with multiplanar reformations. Extensive filling defects are seen in segmental branches of pulmonary arteries bilaterally, involving all lobes compatible with extensive bilateral pulmonary emboli. Thoracic aorta is normal in caliber with no dissection. Heart is not enlarged. No pericardial effusion is seen. There is a small left pleural effusion. There is no mediastinal, hilar or chest wall lymphadenopathy. Alveolar infiltrate is seen anteriorly in the left upper lobe. There are dependant patchy areas of atelectasis or infiltrate in posterior lower lobes bilaterally. IMPRESSION: Extensive bilateral pulmonary emboli. Small left effusion. Left upper lobe infiltrate. Dependant patchy bibasilar atelectasis/infiltrate. Electronically Signed by Reinier Wetzel MD 01/09/2019 10:57 A
--- NOTE | 2019-01-08 19:47 | ECGEPIP ---
[facility] - ED Test Date: 2019-01-07 Pat Name: ZOARIDA NAVAS Department: Room: [place] [address] Gender: Male [employer]: : 1980 Requested By: ISAAC CARUSO Order Number: [id number] Reading MD: Otoniel Haynes Measurements Intervals [place] Rate: 107 P: 5 IN: 148 QRS: 17 QRSD: 102 T: -56 QT: 380 QTc: 508 Interpretive Statements SINUS TACHYCARDIA INCOMPLETE RIGHT BUNDLE BRANCH BLOCK ST DEVIATION AND MODERATE T-WAVE ABNORMALITY, CONSIDER ANTEROLATERAL ISCHEMIA ST DEVIATION AND MODERATE T-WAVE ABNORMALITY, CONSIDER INFERIOR ISCHEMIA NO PRIORS FOR COMPARISON Electronically Signed on 01-08-2019 19:47:27 EDT by Otoniel Haynes
[2019-01-08] MEDS ORDERED: LIDOCAINE 2% MDV 20 ML VIAL As Ordered ONE (19:53)
[2019-01-08] MEDS ORDERED: HEPARIN 1,000 UNITS/ML 10ML VIAL (FOR RADIOLOGY& DIALYSIS ONLY) As Ordered ONE (19:53)
[2019-01-08] MEDS ORDERED: BUPIVACAINE HCL 0.5% 10 ML VIAL As Ordered ONE (19:53)
[2019-01-08] MEDS ORDERED: ISOVUE-300 61% 50ML VIAL (Q9967) As Ordered ONE (19:54)
[2019-01-08 20:29] LABS: CK-MB VALUE MASS 2.1 NG/ML (<3.6); MB/CK RELATIVE INDEX 7.24 (< OR =4); TROPONIN I 0.31 NG/ML (< 0.10)
[2019-01-08] MEDS ORDERED: ALTEPLASE 2 MG/2 ML VIAL (J2997 PER 1MG) As Ordered ONE (20:38)
[2019-01-08] MEDS ORDERED: ENOXAPARIN 120 MG/0.8 ML SYR (J1650) SC SCH (21:00)
[2019-01-08] MEDS: ALTEPLASE RECOMBINANT 25 MG in NS 225 ML IV SCH (21:00)
[2019-01-08] MEDS ORDERED: diphenhydrAMINE 25 MG CAP PO ONE (23:00)
[2019-01-08] MEDS ORDERED: LOPERAMIDE 2 MG CAP PO ONE (23:30)
[2019-01-09] VITALS (24 sets, daily range): BP systolic 104–143; BP diastolic 60–80
[2019-01-09] MEDS: VANCOMYCIN HCL 1,000 MG, VIAL MATE ADAPTER 1 EACH in D5W 250 ML IV SCH (01:01)
--- NOTE | 2019-01-09 01:59 | PHACANCOPD ---
PHARMACY VANCOMYCIN DOSING Pt Demographics Demographics Patient Age:38 , Weight:106.500 , Gender: male Adjusted Body Weight Date: 01/08/19, Adjusted Body Weight: [87.5] Kg Vancomycin Vancomycin indication: SEPTIC SHOCK Vancomycin Target Ranges: 15-20 mcg/ml Vancomycin Load Y/N: Yes Load Dose Date Time Vancomycin Load Dose: 2GM Date: 01/08 Time: 2-4AM Vancomycin Dose Date: 01/08/19. Current Vancomycin Dose: [1250MG Q8H] Intermittent Dosing?: No Labs Micro Microbiology 01/07/19 Blood Culture - Preliminary, Resulted No growth after 24 hours . All specim... 01/07/19 Blood Culture - Preliminary, Resulted No growth after 24 hours . All specim... 01/08/19 Gram Stain - Final, Complete 01/08/19 Sputum Culture - Final, Complete Creatinine Clearance Date:01/08/19. Creatinine Clearance: [>100].CALCULATED Assessment and Plan Maintaining Current Dose?: No Reason for dose change: Trough too low Pharmacist Note Pharmacist Note Date: 01/09/19. Pharmacist note:Vancomycin trough drawn this evening@12:48 reported as 12.8(goal=15-20).Will adjust dose to 1250mg IV [id number] to begin this morning@0900. Patient continues on Cefepime 2 grams IV [id number].Will continue to follow labs and adjust Vancomycin dose as necessary. Date: 01/08/19. Pharmacist note:38 YOM <diagnosed w/Hodgkins Lymphome 01/20, Admitted w/Sepsis. WT102.3kg(ABW=87.5kg) Allergies: tramadol,amoxicillin,SCR=1.16,ELEP=067.8(calculated).Receiving Cefepime 2 gm Q12H and Pharmacy dosed Vancomycin. 2 gram Vancomycin load administered this morning@2-4am, them will begin Vancomycin regimen of 1 gram IV [id number]. First trough is due 12/09@12midnight.(prior to the 4th dose)Will continue to follow labs and adjust Vanco dose as needed. AVNI BOLDEN PHARMACY Jan 09, 2019 01:59
[2019-01-09 03:52] LABS: BASO # 0.1 10^3/uL (0.0-0.2); BASO % 1.4 % (0.0-1.0); EOS % 0.3 % (0.0-3.0); HEMOGLOBIN 8.4 g/dl (13.5-17.5); LYMPH # 1.1 10^3/uL (1.5-4.5); LYMPH % 12.8 % (24.0-44.0); MEAN CORPUSCULAR HEMOGLOBIN 28.6 pg (27.0-33.0); MEAN CORPUSCULAR HGB CONC 32.3 g/dl (32.0-36.5); MEAN CORPUSCULAR VOLUME 88.4 fl (80.0-96.0); MONO # 0.5 10^3/uL (0.0-0.8); MONO % 5.7 % (0.0-5.0); NEUTROPHILS % 79.1 % (36.0-66.0); PLATELET COUNT, AUTOMATED 163 10^3/uL (150-450); RED BLOOD COUNT 2.94 10^6/uL (4.30-6.10); WHITE BLOOD COUNT 8.8 10^3/uL (4.0-10.0)
[2019-01-09 04:04] LABS: PARTIAL THROMBOPLASTIN TIME 34.8 SECONDS (25.0-38.4)
[2019-01-09 04:26] LABS: BLOOD UREA NITROGEN 11 MG/DL (7-18); CALCIUM LEVEL 8.2 MG/DL (8.5-10.1); CARBON DIOXIDE LEVEL 24 MEQ/L (21-32); CHLORIDE LEVEL 110 MEQ/L (98-107); CK-MB VALUE MASS 1.7 NG/ML (<3.6); CPK CREATINE PHOSPHOKINASE 24 U/L (39-308); CREATININE FOR GFR 0.81 MG/DL (0.70-1.30); GLOMERULAR FILTRATION RATE > 60.0 (>60); GLUCOSE, FASTING 108 MG/DL (70-100); MB/CK RELATIVE INDEX 7.08 (< OR =4); SODIUM LEVEL 139 MEQ/L (136-145); TROPONIN I 0.28 NG/ML (< 0.10)
[2019-01-09] MEDS: oxyCODONE 5MG TAB PO PRN ×3 (06:22→22:59)
--- NOTE | 2019-01-09 06:31 | ECHO ---
DATE OF PROCEDURE: 01/08/2019 DATE OF : 1980 AGE: 38. REFERRING PHYSICIAN: Dr. Brittany Gallegos PATIENT LOCATION: Room 3204 REASON FOR ECHOCARDIOGRAM: Sepsis, pulmonary embolism, history of Hodgkin lymphoma. 2-D MEASUREMENTS: IVS: 1.1 cm LV: 3.8 cm LVPW: 1.2 cm LA: 4.2 cm Aorta: 3.3 cm RV: 4.5 cm IVC: 2.8 cm DOPPLER MEASUREMENTS: Peak velocity across the aortic valve: 1.3 m/s Peak velocity across the LVOT: 1.2 m/s Mitral E: 0.78 Mitral A: 0.68 Ratio: Greater than 1.0 Maximum tricuspid valve velocity: 3.1 m/s 2-D COMMENTS: 1. Normal left ventricular size, wall thickness, and normal global left ventricular systolic function. The estimated left ventricular systolic ejection fraction is 60-65%. 2. Mildly dilated left atrium. The right atrium and the right ventricle appeared to be enlarged. The right ventricle free wall seems to be hypokinetic. 3. Normal aortic root. 4. The atrial septum appeared to be normal without evidence of defect or shunt. 5. Trace pericardial effusion noted, no evidence of cardiac tamponade. 6. Mildly calcified aortic valve with normal leaflet excursion. Normal mitral valve, tricuspid valve and pulmonic valve. The proximal pulmonary artery branches appear to be normal. 7. The inferior vena cava was mildly enlarged, central venous pressure might be elevated. DOPPLER: It detects moderate tricuspid regurgitation. The calculated pulmonary artery systolic pressure varies between 50 and 60 mmHg. Assessment of the left ventricular diastolic function appeared to be normal. IMPRESSION: 1. Normal global left ventricular systolic and diastolic function. 2. Aortic valve sclerosis without stenosis or aortic regurgitation. 3. Isolated mildly dilated left atrium. There was no evidence of significant mitral regurgitation. 4. Dilated right heart chambers with moderate tricuspid regurgitation and moderately severe pulmonary hypertension. 5. There are some findings of elevated central venous pressure, the inferior vena cava was enlarged. 6. Trace pericardial effusion. MTDD
--- NOTE | 2019-01-09 07:09 | REP ---
BILATERAL LOWER EXTREMITY DUPLEX DOPPLER VENOUS ULTRASOUND: Real-time compression and duplex Doppler interrogation of the bilateral lower extremity deep venous systems is performed. There is occlusive deep vein thrombosis involving the right popliteal vein and tibioperoneal trunk, otherwise the bilateral common femoral and superficial femoral veins are freely compressible with no intraluminal thrombus, as is the left popliteal vein. IMPRESSION: Occlusive deep vein thrombosis involving the right popliteal vein and tibioperoneal trunk. Electronically Signed by Reinier Wetzel MD 01/10/2019 12:08 A
[2019-01-09] MEDS ORDERED: VANCOMYCIN HCL 750 MG, VIAL MATE ADAPTER 1 EACH in D5W 250 ML IV SCH (09:00)
[2019-01-09 09:15] LABS: HEMOGLOBIN 8.8 g/dl (13.5-17.5)
[2019-01-09 09:54] LABS: PARTIAL THROMBOPLASTIN TIME 37.7 SECONDS (25.0-38.4)
[2019-01-09] MEDS ORDERED: VANCOMYCIN HCL 500 MG in D5W MINI-BAG PLUS 100 ML IV SCH (10:00)
[2019-01-09] MEDS: CEFEPIME HCL 2 GM in D5W MINI-BAG PLUS 50 ML IV SCH (12:04)
[2019-01-09] MEDS: ACETAMINOPHEN 500 MG TAB PO PRN ×2 (12:08→21:06)
[2019-01-09 12:49] LABS: CK-MB VALUE MASS 1.3 NG/ML (<3.6); MB/CK RELATIVE INDEX 7.22 (< OR =4); TROPONIN I 0.24 NG/ML (< 0.10)
--- NOTE | 2019-01-09 14:23 | CR.PDOC ---
General Date of Consultation: Jan 09, [address] Arana HPI: 38 year old M with history of Hodgkin's lymphoma who was admitted with extensive PE in all lobes on CTA Chest, and RLE DVT in popliteal vein status post IVC filter placement and pulmonary thrombolysis as per Dr. Arana 01/08/19. The patient was noted to have a small, pencil eraser sized, clot in sputum at approximately 4 AM. He has had no additional hemoptysis. Dr. Arana aware. Otherwise the patient denies any bleeding. Patient states breathing is currently comfortable. Denies any fevers, chills, Headache, Chest Pain, palpitations, abdominal pain, N/V/D or changes in bowel or bladder habits. Medical History Hodgkin's Lymphoma, kidney stones Surgical History chemo port placement 2017, Chemo port change in november 2018 LEFT HAND BOXERS FX- AGE 27 SOCHX: Tobacco use: Denies ETOH: Denies FAMHX: Denies family history of clotting disorder. ROS: As noted in HPI, otherwise 11pt ROS of systems reviewed and unremarkable. PE: GEN: 38 yo M, appears stated age. Well-nourished, well developed. No acute distress. Alert and oriented x 3. HEENT: Normocephalic, atraumatic. No facial asymmetry. Moist mucous membranes. CHEST: Regular rate and rhythm, +S1, +S2. Port present. LUNGS: Clear to auscultation bilaterally. No wheezes, rales, or rhonchi. Breathing appears symmetric and easy. ABD: Round, soft, non-tender, non-distended. +Bowel sounds throughout. No rebound or guarding. EXT: No lower extremity edema appreciated. No TTP. Feet warm, good cap refill. SKIN: [place], dry, warm. No rashes. NEURO: Alert and oriented x 3. Cranial nerves III-XII are intact. No focal deficits appreciated. TTE 1. Normal global left ventricular systolic and diastolic function. 2. Aortic valve sclerosis without stenosis or aortic regurgitation. 3. Isolated mildly dilated left atrium. There was no evidence of significant mitral regurgitation. 4. Dilated right heart chambers with moderate tricuspid regurgitation and moderately severe pulmonary hypertension. 5. There are some findings of elevated central venous pressure, the inferior vena cava was enlarged. 6. Trace pericardial effusion. DD: GONSALO PINEDA MD 01/08/192011 A&P: 1. Extensive PE in all lobes on CTA Chest, and RLE DVT in popliteal vein status post IVC filter placement 01/08/[address] Arana. TTE as above. Pulmonary thrombolysis as per Dr Arana. Alteplase gtt per protocol. Heparin gtt Monitor labs. Hgb 8.4 Last fibrinogen 445. FOB pending. Vital Signs/I&O Vital Signs Date Time Temp Pulse Resp B/P (MAP) Pulse Ox O2 Delivery O2 Flow Rate FiO2 01/09/19 12:00 98.2 84 16 136/75 (95) 98 2.0 01/08/19 02:25 Room Air I&O- Last 24 Hours up to 6 AM 01/09/19 05:59 Intake Total 3181 ml Output Total 450 ml Balance 2731 ml Laboratory Data Labs 24H Laboratory Tests 2 01/08/19 17:27: Activated Partial Thromboplast Time 28.1 01/08/19 19:46: Total Creatine Kinase 29L, Creatine Kinase MB 2.1, Creatine Kinase MB Relative Index 7.24H, Troponin I 0.31H 01/08/19 23:48: Vancomycin Level Trough 12.8 01/09/19 03:42: Activated Partial Thromboplast Time 34.8, Total Creatine Kinase 24L, Creatine Kinase MB 1.7, Creatine Kinase MB Relative Index 7.08H, Troponin I 0.28H, Immature Granulocyte % (Auto) 0.7, White Blood Count 8.8, Red Blood Count 2.94L, Hemoglobin 8.4L, Hematocrit 26.0L, Mean Corpuscular Volume 88.4, Mean Corpuscular Hemoglobin 28.6, Mean Corpuscular Hemoglobin Concent 32.3, Red Cell Distribution Width 16.3H, Platelet Count 163, Neutrophils (%) (Auto) 79.1H, Lymphocytes (%) (Auto) 12.8L, Monocytes (%) (Auto) 5.7H, Eosinophils (%) (Auto) 0.3, Basophils (%) (Auto) 1.4H, Neutrophils # (Auto) 7.0, Lymphocytes # (Auto) 1.1L, Monocytes # (Auto) 0.5, Eosinophils # (Auto) 0.0, Basophils # (Auto) 0.1, Nucleated Red Blood Cells % (auto) 0.0, Fibrinogen 445, Anion Gap 5L, Glomerular Filtration Rate > 60.0, Blood Urea Nitrogen 11, Creatinine 0.81, Sodium Level 139, Potassium Level 4.0#, Chloride Level 110H, Carbon Dioxide Level 24, Calcium Level 8.2L 01/09/19 08:41: Activated Partial Thromboplast Time 37.7, Fibrinogen 427 01/09/19 11:53: Total Creatine Kinase 18L, Creatine Kinase MB 1.3, Creatine Kinase MB Relative Index 7.22H, Troponin I 0.24H CBC/BMP Laboratory Tests 01/09/19 03:42 Red Blood Count 2.94 L, Mean Corpuscular Volume 88.4, Mean Corpuscular Hemoglobin 28.6, Mean Corpuscular Hemoglobin Concent 32.3, Red Cell Distribution Width 16.3 H, Neutrophils (%) (Auto) 79.1 H, Lymphocytes (%) (Auto) 12.8 L, Monocytes (%) (Auto) 5.7 H, Eosinophils (%) (Auto) 0.3, Basophils (%) (Auto) 1.4 H, Neutrophils # (Auto) 7.0, Lymphocytes # (Auto) 1.1 L, Monocytes # (Auto) 0.5, Eosinophils # (Auto) 0.0, Basophils # (Auto) 0.1, Calcium Level 8.2 L, Total Creatine Kinase 24 L 01/09/19 08:41 Microbiology Microbiology 01/07/19 Blood Culture - Preliminary, Resulted No growth after 24 hours . All specim... 01/07/19 Blood Culture - Preliminary, Resulted No growth after 24 hours . All specim... 01/09/19 Stool Occult Blood (SIMON) - Final, Complete 01/08/19 Gram Stain - Final, Complete 01/08/19 Sputum Culture - Final, Complete Allergies Coded Allergies: amoxicillin (Verified Allergy, Unknown, 11/27/18) tramadol (Verified Allergy, Unknown, 11/27/18) Home Medications Scheduled Gabapentin (Gabapentin) 300 Mg Capsule, 300 MG PO TID, (Reported) Hydrocortisone (Hydrocortisone) 453.6 Gm Cream..g., 1 DOSE TOP BID, (Reported) USES ON CHEST Loratadine (Claritin) 10 Mg Tablet, 10 MG PO DAILY, (Reported) Scheduled PRN Albuterol Sulfate (Ventolin Hfa) 18 Gm Hfa.aer.ad, 2 PUFF INH QID PRN for SHORTNESS OF BREATH, (Reported) Fluticasone Propionate (Flonase Allergy Relief) 9.9 Ml [place].susp, 2 SPRAYS NA DAILY PRN for NASAL CONGESTION, (Reported) Nicotine Polacrilex (Nicotine Gum) 4 Mg Gum, 4 MG MT Q1H PRN for SMOKING CESSATION, (Reported) Oxycodone HCl (Oxycodone HCl) 5 Mg Tablet, 5 MG PO Q8H PRN for PAIN, (Reported) Johana Batista Jan 09, 2019 14:10
--- NOTE | 2019-01-09 14:39 | IPNPDOC ---
Subjective Date Seen The patient was seen on 01/09/19. Subjective Chief Complaint/HPI Patient seen and examined at bedside. Reports that his shortness of breath has improved. However, notes that he still feels short of breath when getting up and going to the bathroom. Objective Physical Examination General Exam: Positive: Alert, Cooperative, No Acute Distress Eye Exam: Negative: Sclera icteric ENT Exam: Positive: Atraumatic, Mucous membr. moist/pink Neck Exam: Negative: JVD Chest Exam: Positive: Clear to auscultation, Normal air movement, Other (chemo port present) Heart Exam: Positive: Rate Normal, Regular Rhythm, Normal S1, Normal S2; Negative: Rubs Telemetry: Positive: Sinus Abdomen Exam: Positive: Soft, Other (No guarding or rigidity); Negative: Tenderness Extremity Exam: Negative: Tenderness, Swelling Neuro Exam: Positive: Normal Speech Psych Exam: Positive: Mental status NL, Mood NL, Oriented x 3 Assessment /Plan Plan/VTE VTE Prophylaxis Ordered?: Yes Plan Bilateral Pulmonary Emboli, RLE DVT CT angiogram of the chest--Extensive PE notable in all lobes on CTA Chest Ultrasound of the legs notable for RLE DVT in popliteal vein 2-D echocardiogram notable for preserved LVEF, dilated right heart chambers noted Vascular Surgery consulted---patient on tPA and Heparin gtt Patient remains hemodynamically stable He does endorse some SOB when getting up and using the bathroom, otherwise denies chest pain, palpitations We will cont to monitor Elevated Troponin Level 2/2 Above Serial Markers downtrending Possible Mild bilateral lower lobe atelectasis vs infiltrates WBC has normalized Patient remains afebrile Cultures unrevealing Vanco/Cefepime transitioned to PO Cefdinir We will cont to monitor Hodgkin's Lymphoma Patient has been getting chemotherapy [id number] since August Last session was on 01/03/19 in [place], [place] Follow up as outpatient DVT Prophylaxis On Heparin gtt/tPA at this time VS, I&O, 24H, Fishbone Vital Signs/I&O Vital Signs Date Time Temp Pulse Resp B/P (MAP) Pulse Ox O2 Delivery O2 Flow Rate FiO2 01/09/19 12:00 98.2 84 16 136/75 (95) 98 2.0 01/08/19 02:25 Room Air I&O- Last 24 Hours up to 6 AM 01/09/19 06:00 Intake Total 3704 ml Output Total 450 ml Balance 3254 ml Laboratory Data 24H LABS Laboratory Tests 2 01/08/19 17:27: Activated Partial Thromboplast Time 28.1 01/08/19 19:46: Total Creatine Kinase 29L, Creatine Kinase MB 2.1, Creatine Kinase MB Relative Index 7.24H, Troponin I 0.31H 01/08/19 23:48: Vancomycin Level Trough 12.8 01/09/19 03:42: Activated Partial Thromboplast Time 34.8, Total Creatine Kinase 24L, Creatine Kinase MB 1.7, Creatine Kinase MB Relative Index 7.08H, Troponin I 0.28H, Immature Granulocyte % (Auto) 0.7, White Blood Count 8.8, Red Blood Count 2.94L, Hemoglobin 8.4L, Hematocrit 26.0L, Mean Corpuscular Volume 88.4, Mean Corpuscular Hemoglobin 28.6, Mean Corpuscular Hemoglobin Concent 32.3, Red Cell Distribution Width 16.3H, Platelet Count 163, Neutrophils (%) (Auto) 79.1H, Lymphocytes (%) (Auto) 12.8L, Monocytes (%) (Auto) 5.7H, Eosinophils (%) (Auto) 0.3, Basophils (%) (Auto) 1.4H, Neutrophils # (Auto) 7.0, Lymphocytes # (Auto) 1.1L, Monocytes # (Auto) 0.5, Eosinophils # (Auto) 0.0, Basophils # (Auto) 0.1, Nucleated Red Blood Cells % (auto) 0.0, Fibrinogen 445, Anion Gap 5L, Glomerular Filtration Rate > 60.0, Blood Urea Nitrogen 11, Creatinine 0.81, Sodium Level 139, Potassium Level 4.0#, Chloride Level 110H, Carbon Dioxide Level 24, Calcium Level 8.2L 01/09/19 08:41: Activated Partial Thromboplast Time 37.7, Fibrinogen 427 01/09/19 11:53: Total Creatine Kinase 18L, Creatine Kinase MB 1.3, Creatine Kinase MB Relative Index 7.22H, Troponin I 0.24H CBC/BMP Laboratory Tests 01/09/19 03:42 Red Blood Count 2.94 L, Mean Corpuscular Volume 88.4, Mean Corpuscular Hemoglobin 28.6, Mean Corpuscular Hemoglobin Concent 32.3, Red Cell Distribution Width 16.3 H, Neutrophils (%) (Auto) 79.1 H, Lymphocytes (%) (Auto) 12.8 L, Monocytes (%) (Auto) 5.7 H, Eosinophils (%) (Auto) 0.3, Basophils (%) (Auto) 1.4 H, Neutrophils # (Auto) 7.0, Lymphocytes # (Auto) 1.1 L, Monocytes # (Auto) 0.5, Eosinophils # (Auto) 0.0, Basophils # (Auto) 0.1, Calcium Level 8.2 L, Total Creatine Kinase 24 L 01/09/19 08:41 Microbiology Microbiology 01/07/19 Blood Culture - Preliminary, Resulted No growth after 24 hours . All specim... 01/07/19 Blood Culture - Preliminary, Resulted No growth after 24 hours . All specim... 01/09/19 Stool Occult Blood (SIMON) - Final, Complete 01/08/19 Gram Stain - Final, Complete 01/08/19 Sputum Culture - Final, Complete JUDY MCCULLOUGH MD Jan 09, 2019 14:39
[2019-01-09 15:02] LABS: HEMATOCRIT 25.5 % (42.0-52.0); HEMOGLOBIN 8.4 g/dl (13.5-17.5)
[2019-01-09 15:13] LABS: PARTIAL THROMBOPLASTIN TIME 29.1 SECONDS (25.0-38.4)
[2019-01-09] MEDS ORDERED: HEPARIN DRIP 25,000 UNITS in APPROPRIATE DILUENT 1 EA IV SCH (17:00)
[2019-01-09] MEDS: ALTEPLASE RECOMBINANT 25 MG in NS 225 ML IV SCH (18:00)
[2019-01-09] MEDS: CEFDINIR 300 MG CAP (OMNICEF) PO SCH (21:05)
[2019-01-09 21:34] LABS: HEMATOCRIT 26.2 % (42.0-52.0); HEMOGLOBIN 8.4 g/dl (13.5-17.5)
[2019-01-09 21:48] LABS: PARTIAL THROMBOPLASTIN TIME 33.7 SECONDS (25.0-38.4)
[2019-01-09] MEDS: FAMOTIDINE 20 MG TAB PO SCH (23:25)
[2019-01-10] VITALS (18 sets, daily range): BP systolic 90–144; BP diastolic 55–80
[2019-01-10 03:21] LABS: BASO # 0.1 10^3/uL (0.0-0.2); BASO % 1.1 % (0.0-1.0); EOS # 0.1 10^3/uL (0.0-0.50); HEMATOCRIT 25.8 % (42.0-52.0); HEMOGLOBIN 8.4 g/dl (13.5-17.5); LYMPH % 13.6 % (24.0-44.0); MEAN CORPUSCULAR HEMOGLOBIN 29.7 pg (27.0-33.0); MEAN CORPUSCULAR HGB CONC 32.6 g/dl (32.0-36.5); MEAN CORPUSCULAR VOLUME 91.2 fl (80.0-96.0); MONO # 0.5 10^3/uL (0.0-0.8); NEUTROPHILS # 5.6 10^3/uL (1.8-7.7); NEUTROPHILS % 76.2 % (36.0-66.0); PLATELET COUNT, AUTOMATED 151 10^3/uL (150-450); RED BLOOD COUNT 2.83 10^6/uL (4.30-6.10); WHITE BLOOD COUNT 7.3 10^3/uL (4.0-10.0)
[2019-01-10 03:32] LABS: PARTIAL THROMBOPLASTIN TIME 34.9 SECONDS (25.0-38.4)
[2019-01-10 03:40] LABS: BLOOD UREA NITROGEN 8 MG/DL (7-18); CALCIUM LEVEL 7.5 MG/DL (8.5-10.1); CARBON DIOXIDE LEVEL 23 MEQ/L (21-32); CHLORIDE LEVEL 111 MEQ/L (98-107); GLOMERULAR FILTRATION RATE > 60.0 (>60); GLUCOSE, FASTING 89 MG/DL (70-100); SODIUM LEVEL 140 MEQ/L (136-145)
[2019-01-10] MEDS: oxyCODONE 5MG TAB PO PRN ×2 (07:35→15:58)
[2019-01-10] MEDS: CEFDINIR 300 MG CAP (OMNICEF) PO SCH ×2 (09:30→21:07)
[2019-01-10 09:41] LABS: HEMATOCRIT 25.4 % (42.0-52.0); HEMOGLOBIN 8.3 g/dl (13.5-17.5)
[2019-01-10 09:57] LABS: PARTIAL THROMBOPLASTIN TIME 31.6 SECONDS (25.0-38.4)
--- NOTE | 2019-01-10 10:43 | IPNPDOC ---
Date Seen The patient was seen on 01/10/19. Progress Note Vascular surgery. Dr. Arana HPI: 38 year old M with history of Hodgkin's lymphoma who was admitted with extensive PE in all lobes on CTA Chest, and RLE DVT in popliteal vein status post IVC filter placement and pulmonary thrombolysis as per Dr. Arana 01/08/19. The patient denies any bleeding. Had a few specks of blood in sputum. Patient states breathing is currently comfortable. Denies any fevers, chills, Headache, Chest Pain, palpitations, abdominal pain, N/V/D or changes in bowel or bladder habits. Medical History Hodgkin's Lymphoma, kidney stones Surgical History chemo port placement 2017, Chemo port change in november 2018 LEFT HAND BOXERS FX- AGE 27 PE: GEN: 38 yo M, appears stated age. Well-nourished, well developed. No acute distress. Alert and oriented x 3. HEENT: Normocephalic, atraumatic. No facial asymmetry. Moist mucous membranes. CHEST: Regular rate and rhythm, +S1, +S2. Port present. LUNGS: Clear to auscultation bilaterally. No wheezes, rales, or rhonchi. Breathing appears symmetric and easy. ABD: Round, soft, non-tender, non-distended. +Bowel sounds throughout. No rebound or guarding. EXT: No lower extremity edema appreciated. No TTP. Feet warm, good cap refill. SKIN: [place], dry, warm. No rashes. NEURO: Alert and oriented x 3. Cranial nerves III-XII are intact. No focal deficits appreciated. TTE 1. Normal global left ventricular systolic and diastolic function. 2. Aortic valve sclerosis without stenosis or aortic regurgitation. 3. Isolated mildly dilated left atrium. There was no evidence of significant mitral regurgitation. 4. Dilated right heart chambers with moderate tricuspid regurgitation and moderately severe pulmonary hypertension. 5. There are some findings of elevated central venous pressure, the inferior vena cava was enlarged. 6. Trace pericardial effusion. DD: GONSALO PINEDA MD 01/08/192011 A&P: 1. Extensive PE in all lobes on CTA Chest, and RLE DVT in popliteal vein status post IVC filter placement 01/08/[address] Arana. TTE as above. Pulmonary thrombolysis as per Dr Arana. Alteplase gtt per protocol. This will be completed at 6 PM. Plan to d/c after this bag is complete. Heparin gtt as per protocol when tpa is complete. Begin Coumadin 5 mg daily tonight. Primary team can manage. Monitor daily INR. Hgb 8.3 Last fibrinogen 431. FOB neg VS, I&O, 24H, Fishbone Vital Signs/I&O Vital Signs Date Time Temp Pulse Resp B/P (MAP) Pulse Ox O2 Delivery O2 Flow Rate FiO2 01/10/19 08:05 20 01/10/19 06:00 76 118/71 (87) 97 2.0 01/10/19 04:00 97.4 01/08/19 02:25 Room Air I&O- Last 24 Hours up to 6 AM 01/10/19 06:00 Intake Total 2912 ml Output Total 2100 ml Balance 812 ml Laboratory Data 24H LABS Laboratory Tests 2 01/09/19 11:53: Total Creatine Kinase 18L, Creatine Kinase MB 1.3, Creatine Kinase MB Relative Index 7.22H, Troponin I 0.24H 01/09/19 14:47: Activated Partial Thromboplast Time 29.1, Fibrinogen 457H 01/09/19 21:08: Activated Partial Thromboplast Time 33.7, Fibrinogen 449 01/10/19 03:11: Activated Partial Thromboplast Time 34.9, Fibrinogen 461H, Immature Granulocyte % (Auto) 1.1, White Blood Count 7.3, Red Blood Count 2.83L, Hemoglobin 8.4L, Hematocrit 25.8L, Mean Corpuscular Volume 91.2, Mean Corpuscular Hemoglobin 29.7, Mean Corpuscular Hemoglobin Concent 32.6, Red Cell Distribution Width 16.3 H, Platelet Count 151, Neutrophils (%) (Auto) 76.2H, Lymphocytes (%) (Auto) 13.6L, Monocytes (%) (Auto) 7.0H, Eosinophils (%) (Auto) 1.0, Basophils (%) (Auto) 1.1H, Neutrophils # (Auto) 5.6, Lymphocytes # (Auto) 1.0L, Monocytes # (Auto) 0.5, Eosinophils # (Auto) 0.1, Basophils # (Auto) 0.1, Nucleated Red Blood Cells % (auto) 0.0, Anion Gap 6L, Glomerular Filtration Rate > 60.0, Blood Urea Nitrogen 8, Creatinine 0.70, Sodium Level 140, Potassium Level 4.0, Chloride Level 111H, Carbon Dioxide Level 23, Calcium Level 7.5L 01/10/19 09:27: Activated Partial Thromboplast Time 31.6, Fibrinogen 431 CBC/BMP Laboratory Tests 01/09/19 14:47 01/09/19 21:08 01/10/19 03:11 Red Blood Count 2.83 L, Mean Corpuscular Volume 91.2, Mean Corpuscular Hemoglobin 29.7, Mean Corpuscular Hemoglobin Concent 32.6, Red Cell Distribution Width 16.3 H, Neutrophils (%) (Auto) 76.2 H, Lymphocytes (%) (Auto) 13.6 L, Monocytes (%) (Auto) 7.0 H, Eosinophils (%) (Auto) 1.0, Basophils (%) (Auto) 1.1 H, Neutrophils # (Auto) 5.6, Lymphocytes # (Auto) 1.0 L, Monocytes # (Auto) 0.5, Eosinophils # (Auto) 0.1, Basophils # (Auto) 0.1, Calcium Level 7.5 L 01/10/19 09:27 Microbiology Microbiology 01/07/19 Blood Culture - Preliminary, Resulted No Growth after 48 hours. All Specime... 01/07/19 Blood Culture - Preliminary, Resulted No Growth after 48 hours. All Specime... 01/09/19 Stool Occult Blood (SIMON) - Final, Complete 01/08/19 Gram Stain - Final, Complete 01/08/19 Sputum Culture - Final, Complete Johana Batista Jan 10, 2019 10:43
--- NOTE | 2019-01-10 12:51 | IPNPDOC ---
Subjective Date Seen The patient was seen on 01/10/19. Subjective Chief Complaint/HPI Patient seen and examined at the bedside. States that he had a minor nosebleed due to the nasal cannula prongs in his nose. Notes that this resolved with supportive care quickly. Denies any other acute complaints at this time. States that his shortness of breath is improving. Denies any complaints of chest pain. Objective Physical Examination General Exam: Positive: Alert, Cooperative, No Acute Distress Eye Exam: Negative: Sclera icteric ENT Exam: Positive: Atraumatic, Mucous membr. moist/pink Neck Exam: Negative: JVD Chest Exam: Positive: Clear to auscultation, Normal air movement, Other (chemo port present) Heart Exam: Positive: Rate Normal, Regular Rhythm, Normal S1, Normal S2; Negative: Rubs Telemetry: Positive: Sinus Abdomen Exam: Positive: Soft, Other (No guarding or rigidity); Negative: Tenderness Extremity Exam: Negative: Tenderness, Swelling Neuro Exam: Positive: Normal Speech Psych Exam: Positive: Mental status NL, Mood NL, Oriented x 3 Assessment /Plan Plan/VTE VTE Prophylaxis Ordered?: Yes Plan Bilateral Pulmonary Emboli, RLE DVT CT angiogram of the chest--Extensive PE notable in all lobes on CTA Chest Ultrasound of the legs notable for RLE DVT in popliteal vein 2-D echocardiogram notable for preserved LVEF, dilated right heart chambers noted Vascular Surgery consulted---patient on tPA and Heparin gtt--tPA to be discontinued this evening---We will transition the patient to PO Coumadin while continuing Heparin gtt for bridging Patient remains hemodynamically stable We will cont to monitor Elevated Troponin Level 2/2 Above Serial Markers downtrending Possible Mild bilateral lower lobe atelectasis vs infiltrates WBC has normalized Patient remains afebrile Cultures unrevealing Vanco/Cefepime transitioned to PO Cefdinir We will cont to monitor Hodgkin's Lymphoma Patient has been getting chemotherapy [id number] since August Last session was on 01/03/19 in [place], [place] Follow up as outpatient DVT Prophylaxis On Heparin gtt/tPA at this time VS, I&O, 24H, Fishbone Vital Signs/I&O Vital Signs Date Time Temp Pulse Resp B/P (MAP) Pulse Ox O2 Delivery O2 Flow Rate FiO2 01/10/19 08:05 20 01/10/19 06:00 76 118/71 (87) 97 2.0 01/10/19 04:00 97.4 01/08/19 02:25 Room Air I&O- Last 24 Hours up to 6 AM 01/10/19 06:00 Intake Total 2912 ml Output Total 2100 ml Balance 812 ml Laboratory Data 24H LABS Laboratory Tests 2 01/09/19 14:47: Activated Partial Thromboplast Time 29.1, Fibrinogen 457H 01/09/19 21:08: Activated Partial Thromboplast Time 33.7, Fibrinogen 449 01/10/19 03:11: Activated Partial Thromboplast Time 34.9, Fibrinogen 461H, Immature Granulocyte % (Auto) 1.1, White Blood Count 7.3, Red Blood Count 2.83L, Hemoglobin 8.4L, Hematocrit 25.8L, Mean Corpuscular Volume 91.2, Mean Corpuscular Hemoglobin 29.7, Mean Corpuscular Hemoglobin Concent 32.6, Red Cell Distribution Width 16.3H, Platelet Count 151, Neutrophils (%) (Auto) 76.2H, Lymphocytes (%) (Auto) 13.6L, Monocytes (%) (Auto) 7.0H, Eosinophils (%) (Auto) 1.0, Basophils (%) (Auto) 1.1H, Neutrophils # (Auto) 5.6, Lymphocytes # (Auto) 1.0L, Monocytes # (Auto) 0.5, Eosinophils # (Auto) 0.1, Basophils # (Auto) 0.1, Nucleated Red Blood Cells % (auto) 0.0, Anion Gap 6L, Glomerular Filtration Rate > 60.0, Blood Urea Nitrogen 8, Creatinine 0.70, Sodium Level 140, Potassium Level 4.0, Chlo ride Level 111H, Carbon Dioxide Level 23, Calcium Level 7.5L 01/10/19 09:27: Activated Partial Thromboplast Time 31.6, Fibrinogen 431 CBC/BMP Laboratory Tests 01/09/19 14:47 01/09/19 21:08 01/10/19 03:11 Red Blood Count 2.83 L, Mean Corpuscular Volume 91.2, Mean Corpuscular Hemoglobin 29.7, Mean Corpuscular Hemoglobin Concent 32.6, Red Cell Distribution Width 16.3 H, Neutrophils (%) (Auto) 76.2 H, Lymphocytes (%) (Auto) 13.6 L, Monocytes (%) (Auto) 7.0 H, Eosinophils (%) (Auto) 1.0, Basophils (%) (Auto) 1.1 H, Neutrophils # (Auto) 5.6, Lymphocytes # (Auto) 1.0 L, Monocytes # (Auto) 0.5, Eosinophils # (Auto) 0.1, Basophils # (Auto) 0.1, Calcium Level 7.5 L 01/10/19 09:27 Microbiology Microbiology 01/07/19 Blood Culture - Preliminary, Resulted No Growth after 48 hours. All Specime... 01/07/19 Blood Culture - Preliminary, Resulted No Growth after 48 hours. All Specime... 01/09/19 Stool Occult Blood (SIMON) - Final, Complete 01/08/19 Gram Stain - Final, Complete 01/08/19 Sputum Culture - Final, Complete JUDY MCCULLOUGH MD Jan 10, 2019 12:51
[2019-01-10] MEDS: MAALOX 30 ML SUSP *UDC PO PRN (16:02)
[2019-01-10] MEDS ORDERED: WARFARIN SOD 5 MG TAB PO SCH (17:00)
[2019-01-10] MEDS: ALTEPLASE RECOMBINANT 25 MG in NS 225 ML IV SCH (17:28)
[2019-01-10] MEDS ORDERED: SODIUM CHLORIDE 0.9% INJ 10 ML SYR IV PRN (17:45)
[2019-01-10] MEDS: HEPARIN DRIP 25,000 UNITS in APPROPRIATE DILUENT 1 EA IV SCH (18:11)
[2019-01-10] MEDS: SODIUM CHLORIDE 0.9% INJ 10 ML SYR IV SCH (18:12)
[2019-01-10] MEDS: FAMOTIDINE 20 MG TAB PO SCH (21:07)
[2019-01-10] MEDS ORDERED: diphenhydrAMINE CREAM 30GM TOP PRN (21:15)
[2019-01-11] VITALS (7 sets, daily range): BP systolic 104–151; BP diastolic 60–91
[2019-01-11] MEDS: oxyCODONE 5MG TAB PO PRN ×3 (00:04→16:45)
[2019-01-11] MEDS: HEPARIN SOD (PORCINE) 5000 UNITS/ML VIAL IV PRN ×3 (00:50→20:12)
[2019-01-11] MEDS: SODIUM CHLORIDE 0.9% INJ 10 ML SYR IV SCH ×3 (06:24→16:46)
[2019-01-11 06:43] LABS: BASO # 0.1 10^3/uL (0.0-0.2); BASO % 1.2 % (0.0-1.0); EOS # 0.1 10^3/uL (0.0-0.50); HEMATOCRIT 25.9 % (42.0-52.0); HEMOGLOBIN 8.4 g/dl (13.5-17.5); LYMPH # 1.3 10^3/uL (1.5-4.5); LYMPH % 22.5 % (24.0-44.0); MEAN CORPUSCULAR HEMOGLOBIN 29.4 pg (27.0-33.0); MEAN CORPUSCULAR HGB CONC 32.4 g/dl (32.0-36.5); MEAN CORPUSCULAR VOLUME 90.6 fl (80.0-96.0); MONO # 0.6 10^3/uL (0.0-0.8); MONO % 10.2 % (0.0-5.0); NEUTROPHILS # 3.7 10^3/uL (1.8-7.7); NEUTROPHILS % 64.1 % (36.0-66.0); PLATELET COUNT, AUTOMATED 188 10^3/uL (150-450); RED BLOOD COUNT 2.86 10^6/uL (4.30-6.10); WHITE BLOOD COUNT 5.8 10^3/uL (4.0-10.0)
[2019-01-11 06:53] LABS: INR 1.18; PROTHROMBIN TIME 14.7 SECONDS (11.8-14.0)
[2019-01-11 06:54] LABS: PARTIAL THROMBOPLASTIN TIME 63.4 SECONDS (25.0-38.4)
[2019-01-11 07:00] LABS: BLOOD UREA NITROGEN 10 MG/DL (7-18); CALCIUM LEVEL 8.2 MG/DL (8.5-10.1); CARBON DIOXIDE LEVEL 23 MEQ/L (21-32); CHLORIDE LEVEL 109 MEQ/L (98-107); CREATININE FOR GFR 0.81 MG/DL (0.70-1.30); GLOMERULAR FILTRATION RATE > 60.0 (>60); GLUCOSE, FASTING 84 MG/DL (70-100); SODIUM LEVEL 140 MEQ/L (136-145)
[2019-01-11] MEDS: CEFDINIR 300 MG CAP (OMNICEF) PO SCH ×2 (08:08→20:11)
[2019-01-11] MEDS: HEPARIN DRIP 25,000 UNITS in APPROPRIATE DILUENT 1 EA IV SCH ×2 (09:42→22:17)
--- NOTE | 2019-01-11 10:34 | IPNPDOC ---
Date Seen The patient was seen on 01/11/19. Progress Note Vascular surgery. Dr. Arana HPI: 38 year old M with history of Hodgkin's lymphoma who was admitted with extensive PE in all lobes on CTA Chest, and RLE DVT in popliteal vein status post IVC filter placement and pulmonary thrombolysis as per Dr. Arana 01/08/19. The patient denies any bleeding. Had a few specks of blood in sputum. Patient states breathing is currently comfortable. Denies any fevers, chills, Headache, Chest Pain, palpitations, abdominal pain, N/V/D or changes in bowel or bladder habits. Medical History Hodgkin's Lymphoma, Follows with [facility]. kidney stones Surgical History chemo port placement 2017, Chemo port change in november 2018 LEFT HAND BOXERS FX- AGE 27 PE: GEN: 38 yo M, appears stated age. Alert and oriented x 3. HEENT: Normocephalic, atraumatic. N Moist mucous membranes. CHEST: Regular rate and rhythm, +S1, +S2. Port present. LUNGS: Clear to auscultation bilaterally. ABD: Round, soft, non-tender, non-distended. EXT: No lower extremity edema appreciated. No TTP. Feet warm, good cap refill. NEURO: No focal deficits appreciated. TTE 1. Normal global left ventricular systolic and diastolic function. 2. Aortic valve sclerosis without stenosis or aortic regurgitation. 3. Isolated mildly dilated left atrium. There was no evidence of significant mitral regurgitation. 4. Dilated right heart chambers with moderate tricuspid regurgitation and moderately severe pulmonary hypertension. 5. There are some findings of elevated central venous pressure, the inferior vena cava was enlarged. 6. Trace pericardial effusion. DD: GONSALO PINEDA MD 01/08/192011 A&P: 1. Extensive PE in all lobes on CTA Chest, and RLE DVT in popliteal vein status post IVC filter placement 01/08/[address] Arana. TTE as above. S/P Pulmonary thrombolysis as per Dr Arana. Alteplase gtt d/cd 01/10/19. Heparin gtt as per protocol until INR therapeutic. Continue with Coumadin and monitor INR Hgb 8.4 FOB neg VS, I&O, 24H, Fishbone Vital Signs/I&O Vital Signs Date Time Temp Pulse Resp B/P (MAP) Pulse Ox O2 Delivery O2 Flow Rate FiO2 01/11/19 08:40 20 92 8/9/19 08:00 98.9 75 124/81 (95) 01/11/19 04:00 1.0 01/08/19 02:25 Room Air I&O- Last 24 Hours up to 6 AM 01/11/19 05:59 Intake Total 2912 ml Output Total 2500 ml Balance 412 ml Laboratory Data 24H LABS Laboratory Tests 2 01/11/19 00:06: Activated Partial Thromboplast Time 47.9H 01/11/19 06:25: Activated Partial Thromboplast Time 63.4H, Immature Granulocyte % (Auto) 1.0, White Blood Count 5.8, Red Blood Count 2.86L, Hemoglobin 8.4L, Hematocrit 25.9L, Mean Corpuscular Volume 90.6, Mean Corpuscular Hemoglobin 29.4, Mean Corpuscular Hemoglobin Concent 32.4, Red Cell Distribution Width 16.4H, Platelet Count 188, Neutrophils (%) (Auto) 64.1, Lymphocytes (%) (Auto) 22.5L, Monocytes (%) (Auto) 10.2H, Eosinophils (%) (Auto) 1.0, Basophils (%) (Auto) 1.2H, Neutrophils # (Auto) 3.7, Lymphocytes # (Auto) 1.3L, Monocytes # (Auto) 0.6, Eosinophils # (Auto) 0.1, Basophils # (Auto) 0.1, Nucleated Red Blood Cells % (auto) 0.0, Prothrombin Time 14.7H, Prothromb Time International Ratio 1.18, Anion Gap 8, Glomerular Filtration Rate > 60.0, Blood Urea Nitrogen 10, Creatinine 0.81, Sodium Level 140, Potassium Level 4.0, Chloride Level 109H, Carbon Dioxide Level 23, Calcium Level 8.2L CBC/BMP Laboratory Tests 01/11/19 06:25 Red Blood Count 2.86 L, Mean Corpuscular Volume 90.6, Mean Corpuscular Hemoglobin 29.4, Mean Corpuscular Hemoglobin Concent 32.4, Red Cell Distribution Width 16.4 H, Neutrophils (%) (Auto) 64.1, Lymphocytes (%) (Auto) 22.5 L, Monocytes (%) (Auto) 10.2 H, Eosinophils (%) (Auto) 1.0, Basophils (%) (Auto) 1.2 H, Neutrophils # (Auto) 3.7, Lymphocytes # (Auto) 1.3 L, Monocytes # (Auto) 0.6, Eosinophils # (Auto) 0.1, Basophils # (Auto) 0.1, Calcium Level 8.2 L Microbiology Microbiology 01/07/19 Blood Culture - Preliminary, Resulted No Growth after 72 hours. All specime... 01/07/19 Blood Culture - Preliminary, Resulted No Growth after 72 hours. All specime... 01/09/19 Stool Occult Blood (SIMON) - Final, Complete 01/08/19 Gram Stain - Final, Complete 01/08/19 Sputum Culture - Final, Complete Johana Batista Jan 11, 2019 10:34
--- NOTE | 2019-01-11 11:43 | IPNPDOC ---
Subjective Date Seen The patient was seen on 01/11/19. Subjective Chief Complaint/HPI Patient seen and examined at the bedside. No acute overnight events noted. Objective Physical Examination General Exam: Positive: Alert, Cooperative, No Acute Distress Eye Exam: Negative: Sclera icteric ENT Exam: Positive: Atraumatic, Mucous membr. moist/pink Neck Exam: Negative: JVD Chest Exam: Positive: Clear to auscultation, Normal air movement, Other (chemo port present) Heart Exam: Positive: Rate Normal, Regular Rhythm, Normal S1, Normal S2; Negative: Rubs Telemetry: Positive: Sinus Abdomen Exam: Positive: Soft, Other (No guarding or rigidity); Negative: Tenderness Extremity Exam: Negative: Tenderness, Swelling Neuro Exam: Positive: Normal Speech Psych Exam: Positive: Mental status NL, Mood NL, Oriented x 3 Assessment /Plan Plan/VTE VTE Prophylaxis Ordered?: Yes Plan Bilateral Pulmonary Emboli, RLE DVT CT angiogram of the chest--Extensive PE notable in all lobes on CTA Chest Ultrasound of the legs notable for RLE DVT in popliteal vein 2-D echocardiogram notable for preserved LVEF, dilated right heart chambers noted Vascular Surgery consulted---s/p tPA treatment Currently on Heparin gtt bridge to PO Coumadin Patient remains hemodynamically stable We will cont to monitor Elevated Troponin Level 2/2 Above Serial Markers downtrending Possible Mild bilateral lower lobe atelectasis vs infiltrates WBC has normalized Patient remains afebrile Cultures unrevealing Vanco/Cefepime transitioned to PO Cefdinir We will cont to monitor Hodgkin's Lymphoma Patient has been getting chemotherapy [id number] since August Last session was on 01/03/19 in [place], [place] Follow up as outpatient DVT Prophylaxis On Heparin gtt/Coumadin transition at this time. Dispo--patient reports his SOB is improved, we will downgrade him to PCU. PT ordered for functional optimization. VS, I&O, 24H, Fishbone Vital Signs/I&O Vital Signs Date Time Temp Pulse Resp B/P (MAP) Pulse Ox O2 Delivery O2 Flow Rate FiO2 01/11/19 08:40 20 92 01/11/19 08:00 98.9 75 124/81 (95) 01/11/19 04:00 1.0 01/08/19 02:25 Room Air I&O- Last 24 Hours up to 6 AM 01/11/19 05:59 Intake Total 2912 ml Output Total 2500 ml Balance 412 ml Laboratory Data 24H LABS Laboratory Tests 2 01/11/19 00:06: Activated Partial Thromboplast Time 47.9H 01/11/19 06:25: Activated Partial Thromboplast Time 63.4H, Immature Granulocyte % (Auto) 1.0, White Blood Count 5.8, Red Blood Count 2.86L, Hemoglobin 8.4L, Hematocrit 25.9L, Mean Corpuscular Volume 90.6, Mean Corpuscular Hemoglobin 29.4, Mean Corpuscular Hemoglobin Concent 32.4, Red Cell Distribution Width 16.4H, Platelet Count 188, Neutrophils (%) (Auto) 64.1, Lymphocytes (%) (Auto) 22.5L, Monocytes (%) (Auto) 10.2H, Eosinophils (%) (Auto) 1.0, Basophils (%) (Auto) 1.2H, Neutrophils # (Auto) 3.7, Lymphocytes # (Auto) 1.3L, Monocytes # (Auto) 0.6, Eosinophils # (Auto) 0.1, Basophils # (Auto) 0.1, Nucleated Red Blood Cells % (auto) 0.0, Prothrombin Time 14.7H, Prothromb Time International Ratio 1.18, Anion Gap 8, Glomerular Filtration Rate > 60.0, Blood Urea Nitrogen 10, Creatinine 0.81, Sodi um Level 140, Potassium Level 4.0, Chloride Level 109H, Carbon Dioxide Level 23, Calcium Level 8.2L CBC/BMP Laboratory Tests 01/11/19 06:25 Red Blood Count 2.86 L, Mean Corpuscular Volume 90.6, Mean Corpuscular Hemoglobin 29.4, Mean Corpuscular Hemoglobin Concent 32.4, Red Cell Distribution Width 16.4 H, Neutrophils (%) (Auto) 64.1, Lymphocytes (%) (Auto) 22.5 L, Monocytes (%) (Auto) 10.2 H, Eosinophils (%) (Auto) 1.0, Basophils (%) (Auto) 1.2 H, Neutrophils # (Auto) 3.7, Lymphocytes # (Auto) 1.3 L, Monocytes # (Auto) 0.6, Eosinophils # (Auto) 0.1, Basophils # (Auto) 0.1, Calcium Level 8.2 L Microbiology Microbiology 01/07/19 Blood Culture - Preliminary, Resulted No Growth after 72 hours. All specime... 01/07/19 Blood Culture - Preliminary, Resulted No Growth after 72 hours. All specime... 01/09/19 Stool Occult Blood (SIMON) - Final, Complete 01/08/19 Gram Stain - Final, Complete 01/08/19 Sputum Culture - Final, Complete JUDY MCCULLOUGH MD Jan 11, 2019 11:43
[2019-01-11] MEDS: MAALOX 30 ML SUSP *UDC PO PRN ×2 (15:26→21:12)
[2019-01-11] MEDS ORDERED: WARFARIN SOD 5 MG TAB PO ONE (17:00)
[2019-01-11] MEDS: FAMOTIDINE 20 MG TAB PO SCH (20:11)
[2019-01-12] VITALS: BP 130/79
[2019-01-12] MEDS: oxyCODONE 5MG TAB PO PRN ×3 (01:47→17:29)
[2019-01-12 04:00] VITALS: BP 116/76
[2019-01-12 05:26] LABS: BASO # 0.1 10^3/uL (0.0-0.2); BASO % 0.8 % (0.0-1.0); EOS # 0.1 10^3/uL (0.0-0.50); HEMOGLOBIN 8.8 g/dl (13.5-17.5); LYMPH # 1.2 10^3/uL (1.5-4.5); LYMPH % 19.5 % (24.0-44.0); MEAN CORPUSCULAR HEMOGLOBIN 29.7 pg (27.0-33.0); MEAN CORPUSCULAR HGB CONC 32.6 g/dl (32.0-36.5); MEAN CORPUSCULAR VOLUME 91.2 fl (80.0-96.0); MONO # 0.6 10^3/uL (0.0-0.8); NEUTROPHILS # 4.1 10^3/uL (1.8-7.7); NEUTROPHILS % 67.9 % (36.0-66.0); PLATELET COUNT, AUTOMATED 217 10^3/uL (150-450); RED BLOOD COUNT 2.96 10^6/uL (4.30-6.10)
[2019-01-12 05:37] LABS: INR 1.25; PROTHROMBIN TIME 15.4 SECONDS (11.8-14.0)
[2019-01-12 05:50] LABS: BLOOD UREA NITROGEN 7 MG/DL (7-18); CALCIUM LEVEL 7.9 MG/DL (8.5-10.1); CARBON DIOXIDE LEVEL 25 MEQ/L (21-32); CHLORIDE LEVEL 109 MEQ/L (98-107); CREATININE FOR GFR 0.85 MG/DL (0.70-1.30); GLOMERULAR FILTRATION RATE > 60.0 (>60); GLUCOSE, FASTING 86 MG/DL (70-100); POTASSIUM SERUM 4.1 MEQ/L (3.5-5.1); SODIUM LEVEL 140 MEQ/L (136-145)
[2019-01-12] MEDS: SODIUM CHLORIDE 0.9% INJ 10 ML SYR IV SCH ×3 (06:08→17:29)
[2019-01-12 08:00] VITALS: BP 129/75
[2019-01-12] MEDS: CEFDINIR 300 MG CAP (OMNICEF) PO SCH ×2 (09:16→21:06)
[2019-01-12] MEDS: HEPARIN DRIP 25,000 UNITS in APPROPRIATE DILUENT 1 EA IV SCH ×2 (09:42→23:21)
[2019-01-12 12:00] VITALS: BP 117/74
--- NOTE | 2019-01-12 12:41 | IPNPDOC ---
Subjective Date Seen The patient was seen on 01/12/19. Subjective Chief Complaint/HPI Patient seen and examined at bedside. Denies any acute complaints at this time. Reports that he worked with physical therapy yesterday and is making progress. Objective Physical Examination General Exam: Positive: Alert, Cooperative, No Acute Distress Eye Exam: Negative: Sclera icteric ENT Exam: Positive: Atraumatic, Mucous membr. moist/pink Neck Exam: Negative: JVD Chest Exam: Positive: Clear to auscultation, Normal air movement, Other (chemo port present) Heart Exam: Positive: Rate Normal, Regular Rhythm, Normal S1, Normal S2; Negative: Rubs Telemetry: Positive: Sinus Abdomen Exam: Positive: Soft, Other (No guarding or rigidity); Negative: Tenderness Extremity Exam: Negative: Tenderness, Swelling Neuro Exam: Positive: Normal Speech Psych Exam: Positive: Mental status NL, Mood NL, Oriented x 3 Assessment /Plan Plan/VTE VTE Prophylaxis Ordered?: Yes Plan Bilateral Pulmonary Emboli, RLE DVT CT angiogram of the chest--Extensive PE notable in all lobes on CTA Chest Ultrasound of the legs notable for RLE DVT in popliteal vein 2-D echocardiogram notable for preserved LVEF, dilated right heart chambers noted Vascular Surgery consulted---s/p tPA treatment Currently on Heparin gtt bridge to PO Coumadin Patient remains hemodynamically stable We will cont to monitor Elevated Troponin Level 2/2 Above Serial Markers downtrending Possible Mild bilateral lower lobe atelectasis vs infiltrates WBC has normalized Patient remains afebrile Cultures unrevealing Vanco/Cefepime transitioned to PO Cefdinir We will cont to monitor Hodgkin's Lymphoma Patient has been getting chemotherapy [id number] since August Last session was on 01/03/19 in [place], [place] Follow up as outpatient DVT Prophylaxis On Heparin gtt/Coumadin transition at this time. VS, I&O, 24H, Fishbone Vital Signs/I&O Vital Signs Date Time Temp Pulse Resp B/P (MAP) Pulse Ox O2 Delivery O2 Flow Rate FiO2 01/12/19 12:00 98.0 82 15 117/74 (88) 91 01/12/19 08:00 01/08/19 02:25 Room Air I&O- Last 24 Hours up to 6 AM 01/12/19 06:00 Intake Total 2260 ml Output Total 2275 ml Balance -15 ml Laboratory Data 24H LABS Laboratory Tests 2 8/9/19 12:45: Activated Partial Thromboplast Time 64.9H 01/11/19 18:20: Activated Partial Thromboplast Time 50.1H 01/12/19 05:09: Activated Partial Thromboplast Time 78.1H, Immature Granulocyte % (Auto) 0.8, White Blood Count 6.0, Red Blood Count 2.96L, Hemoglobin 8.8L, Hematocrit 27.0L, Mean Corpuscular Volume 91.2, Mean Corpuscular Hemoglobin 29.7, Mean Corpuscular Hemoglobin Concent 32.6, Red Cell Distribution Width 16.8H, Platelet Count 217, Neutrophils (%) (Auto) 67.9H, Lymphocytes (%) (Auto) 19.5L, Monocytes (%) (Auto) 10.0H, Eosinophils (%) (Auto) 1.0, Basophils (%) (Auto) 0.8, Neutrophils # (Auto) 4.1, Lymphocytes # (Auto) 1.2L, Monocytes # (Auto) 0.6, Eosinophils # (Auto) 0.1, Basophils # (Auto) 0.1, Nucleated Red Blood Cells % (auto) 0.0, Prothrombin Time 15.4H, Prothromb Time International Ratio 1.25, Anion Gap 6L, Glomerular Filtration Rate > 60.0, Blood Urea Nitrogen 7, Creatinine 0.85, Sodium Level 140, Potassium Level 4.1, Chloride Level 109H, Carbon Dioxide Level 25, Calcium Level 7.9L CBC/BMP Laboratory Tests 01/12/19 05:09 Red Blood Count 2.96 L, Mean Corpuscular Volume 91.2, Mean Corpuscular Hemoglobin 29.7, Mean Corpuscular Hemoglobin Concent 32.6, Red Cell Distribution Width 16.8 H, Neutrophils (%) (Auto) 67.9 H, Lymphocytes (%) (Auto) 19.5 L, Monocytes (%) (Auto) 10.0 H, Eosinophils (%) (Auto) 1.0, Basophils (%) (Auto) 0.8, Neutrophils # (Auto) 4.1, Lymphocytes # (Auto) 1.2 L, Monocytes # (Auto) 0.6, Eosinophils # (Auto) 0.1, Basophils # (Auto) 0.1, Calcium Level 7.9 L Microbiology Microbiology 01/07/19 Blood Culture - Preliminary, Resulted No Growth after 72 hours. All specime... 01/07/19 Blood Culture - Preliminary, Resulted No Growth after 72 hours. All specime... 01/09/19 Stool Occult Blood (SIMON) - Final, Complete 01/08/19 Gram Stain - Final, Complete 01/08/19 Sputum Culture - Final, Complete JUDY MCCULLOUGH MD Jan 12, 2019 12:41
[2019-01-12] MEDS ORDERED: WARFARIN SOD 2.5 MG TAB PO ONE (17:00)
[2019-01-12] MEDS: WARFARIN SOD 7.5 MG TAB PO SCH (17:28)
[2019-01-12] MEDS: MAALOX 30 ML SUSP *UDC PO PRN (17:29)
[2019-01-12] MEDS: FAMOTIDINE 20 MG TAB PO SCH (21:06)
[2019-01-12 22:00] VITALS: BP 142/88
[2019-01-13] MEDS: SODIUM CHLORIDE 0.9% INJ 10 ML SYR IV SCH ×3 (05:52→17:32)
[2019-01-13 05:55] LABS: BASO # 0.1 10^3/uL (0.0-0.2); BASO % 1.2 % (0.0-1.0); EOS # 0.1 10^3/uL (0.0-0.50); EOS % 2.3 % (0.0-3.0); HEMATOCRIT 30.5 % (42.0-52.0); HEMOGLOBIN 9.9 g/dl (13.5-17.5); LYMPH # 1.1 10^3/uL (1.5-4.5); LYMPH % 21.7 % (24.0-44.0); MEAN CORPUSCULAR HEMOGLOBIN 29.3 pg (27.0-33.0); MEAN CORPUSCULAR HGB CONC 32.5 g/dl (32.0-36.5); MEAN CORPUSCULAR VOLUME 90.2 fl (80.0-96.0); MONO # 0.7 10^3/uL (0.0-0.8); MONO % 14.7 % (0.0-5.0); NEUTROPHILS # 2.9 10^3/uL (1.8-7.7); NEUTROPHILS % 59.3 % (36.0-66.0); PLATELET COUNT, AUTOMATED 251 10^3/uL (150-450); RED BLOOD COUNT 3.38 10^6/uL (4.30-6.10); WHITE BLOOD COUNT 4.8 10^3/uL (4.0-10.0)
[2019-01-13 06:00] VITALS: BP 125/76
[2019-01-13] MEDS: oxyCODONE 5MG TAB PO PRN ×3 (06:01→22:48)
[2019-01-13 06:10] LABS: INR 1.82; PROTHROMBIN TIME 20.8 SECONDS (11.8-14.0)
[2019-01-13 06:15] LABS: BLOOD UREA NITROGEN 9 MG/DL (7-18); CALCIUM LEVEL 8.7 MG/DL (8.5-10.1); CARBON DIOXIDE LEVEL 23 MEQ/L (21-32); CHLORIDE LEVEL 109 MEQ/L (98-107); CREATININE FOR GFR 0.88 MG/DL (0.70-1.30); GLOMERULAR FILTRATION RATE > 60.0 (>60); GLUCOSE, FASTING 94 MG/DL (70-100); POTASSIUM SERUM 4.1 MEQ/L (3.5-5.1); SODIUM LEVEL 139 MEQ/L (136-145)
[2019-01-13 06:47] LABS: PARTIAL THROMBOPLASTIN TIME 87.9 SECONDS (25.0-38.4)
[2019-01-13] MEDS: CEFDINIR 300 MG CAP (OMNICEF) PO SCH ×2 (09:44→21:18)
[2019-01-13] MEDS: HEPARIN DRIP 25,000 UNITS in APPROPRIATE DILUENT 1 EA IV SCH ×2 (09:44→22:39)
--- NOTE | 2019-01-13 12:16 | IPNPDOC ---
Subjective Date Seen The patient was seen on 01/13/19. Subjective Chief Complaint/HPI Patient seen and examined at the bedside. No acute overnight events noted. [facility] Objective Physical Examination General Exam: Positive: Alert, Cooperative, No Acute Distress Eye Exam: Negative: Sclera icteric ENT Exam: Positive: Atraumatic, Mucous membr. moist/pink Neck Exam: Negative: JVD Chest Exam: Positive: Clear to auscultation, Normal air movement, Other (chemo port present) Heart Exam: Positive: Rate Normal, Regular Rhythm, Normal S1, Normal S2; Negative: Rubs Telemetry: Positive: Sinus Abdomen Exam: Positive: Soft, Other (No guarding or rigidity); Negative: Tenderness Extremity Exam: Negative: Tenderness, Swelling Neuro Exam: Positive: Normal Speech Psych Exam: Positive: Mental status NL, Mood NL, Oriented x 3 Assessment /Plan Plan/VTE VTE Prophylaxis Ordered?: Yes Plan Bilateral Pulmonary Emboli, RLE DVT CT angiogram of the chest--Extensive PE notable in all lobes on CTA Chest Ultrasound of the legs notable for RLE DVT in popliteal vein 2-D echocardiogram notable for preserved LVEF, dilated right heart chambers noted Vascular Surgery consulted---s/p tPA treatment Currently on Heparin gtt bridge to PO Coumadin Patient remains hemodynamically stable We will cont to monitor Elevated Troponin Level 2/2 Above Serial Markers downtrending Possible Mild bilateral lower lobe atelectasis vs infiltrates WBC has normalized Patient remains afebrile Cultures unrevealing Vanco/Cefepime transitioned to PO Cefdinir We will cont to monitor Hodgkin's Lymphoma Patient has been getting chemotherapy [id number] since August Last session was on 01/03/19 in [place], [place] Follow up as outpatient DVT Prophylaxis On Heparin gtt/Coumadin transition at this time. Disposition-Anticipate discharge home in 48 hours once the patient's INR has been therapeutic for 24 hours. PFS on board for further optimization of the patient's needs upon discharge. VS, I&O, 24H, Fishbone Vital Signs/I&O Vital Signs Date Time Temp Pulse Resp B/P (MAP) Pulse Ox O2 Delivery O2 Flow Rate FiO2 01/13/19 06:31 16 01/13/19 06:00 97.4 67 125/76 (92) 93 01/12/19 08:00 01/08/19 02:25 Room Air I&O- Last 24 Hours up to 6 AM 01/13/19 06:00 Intake Total 1868 ml Output Total 700 ml Balance 1168 ml Laboratory Data 24H LABS Laboratory Tests 2 01/13/19 05:43: Immature Granulocyte % (Auto) 0.8, White Blood Count 4.8, Red Blood Count 3.38L, Hemoglobin 9.9L, Hematocrit 30.5L, Mean Corpuscular Volume 90.2, Mean Corpuscular Hemoglobin 29.3, Mean Corpuscular Hemoglobin Concent 32.5, Red Cell Distribution Width 16.7H, Platelet Count 251, Neutrophils (%) (Auto) 59.3, Lymphocytes (%) (Auto) 21.7L, Monocytes (%) (Auto) 14.7H, Eosinophils (%) (Auto) 2.3, Basophils (%) (Auto) 1.2H, Neutrophils # (Auto) 2.9, Lymphocytes # (Auto) 1.1L, Monocytes # (Auto) 0.7, Eosinophils # (Auto) 0.1, Basophils # (Auto) 0.1, Nucleated Red Blood Cells % (auto) 0.0, Prothrombin Time 20.8H, Prothromb Time International Ratio 1.82, Activated Partial Thromboplast Time 87.9H, Anion Gap 7L, Glomerular Filtration Rate > 60.0, Blood Urea Nitrogen 9, Creatinine 0.88, Sodium Level 139, Potassium Level 4.1, Chloride Level 109H, Carbon Dioxide Level 23, Calcium Level 8.7, Magnesium Level 2.4 CBC/BMP Laboratory Tests 01/13/19 05:43 Red Blood Count 3.38 L, Mean Corpuscular Volume 90.2, Mean Corpuscular Hemoglobin 29.3, Mean Corpuscular Hemoglobin Concent 32.5, Red Cell Distribution Width 16.7 H, Neutrophils (%) (Auto) 59.3, Lymphocytes (%) (Auto) 21.7 L, Monocytes (%) (Auto) 14.7 H, Eosinophils (%) (Auto) 2.3, Basophils (%) (Auto) 1.2 H, Neutrophils # (Auto) 2.9, Lymphocytes # (Auto) 1.1 L, Monocytes # (Auto) 0.7, Eosinophils # (Auto) 0.1, Basophils # (Auto) 0.1, Calcium Level 8.7 Microbiology Microbiology 01/07/19 Blood Culture - Final, Complete NO GROWTH AFTER 5 DAYS 01/07/19 Blood Culture - Final, Complete NO GROWTH AFTER 5 DAYS 01/13/19 Stool Occult Blood (SIMON) - Final, Complete 01/12/19 Stool Occult Blood (SIMON) - Final, Complete 01/09/19 Stool Occult Blood (SIMON) - Final, Complete 01/08/19 Gram Stain - Final, Complete 01/08/19 Sputum Culture - Final, Complete JUDY MCCULLOUGH MD Jan 13, 2019 12:16
[2019-01-13] MEDS: MAALOX 30 ML SUSP *UDC PO PRN (12:29)
[2019-01-13] MEDS: ACETAMINOPHEN 500 MG TAB PO PRN (13:03)
[2019-01-13 14:00] VITALS: BP 108/65
[2019-01-13] MEDS: WARFARIN SOD 7.5 MG TAB PO SCH (17:31)
[2019-01-13] MEDS: FAMOTIDINE 20 MG TAB PO SCH (21:18)
[2019-01-13 22:00] VITALS: BP 132/79
[2019-01-14] MEDS: SODIUM CHLORIDE 0.9% INJ 10 ML SYR IV SCH ×3 (05:47→17:08)
[2019-01-14 06:00] VITALS: BP 127/73
[2019-01-14 06:39] LABS: BASO # 0.1 10^3/uL (0.0-0.2); BASO % 1.2 % (0.0-1.0); EOS # 0.1 10^3/uL (0.0-0.50); EOS % 2.8 % (0.0-3.0); HEMATOCRIT 33.8 % (42.0-52.0); HEMOGLOBIN 10.8 g/dl (13.5-17.5); LYMPH % 20.2 % (24.0-44.0); MEAN CORPUSCULAR HEMOGLOBIN 29.1 pg (27.0-33.0); MEAN CORPUSCULAR VOLUME 91.1 fl (80.0-96.0); MONO # 0.9 10^3/uL (0.0-0.8); NEUTROPHILS # 2.9 10^3/uL (1.8-7.7); NEUTROPHILS % 57.4 % (36.0-66.0); PLATELET COUNT, AUTOMATED 295 10^3/uL (150-450); RED BLOOD COUNT 3.71 10^6/uL (4.30-6.10)
[2019-01-14 07:01] LABS: INR 2.05; PROTHROMBIN TIME 22.9 SECONDS (11.8-14.0)
[2019-01-14 07:08] LABS: BLOOD UREA NITROGEN 11 MG/DL (7-18); CALCIUM LEVEL 8.8 MG/DL (8.5-10.1); CARBON DIOXIDE LEVEL 24 MEQ/L (21-32); CHLORIDE LEVEL 108 MEQ/L (98-107); CREATININE FOR GFR 0.86 MG/DL (0.70-1.30); GLOMERULAR FILTRATION RATE > 60.0 (>60); GLUCOSE, FASTING 84 MG/DL (70-100); POTASSIUM SERUM 4.5 MEQ/L (3.5-5.1); SODIUM LEVEL 139 MEQ/L (136-145)
[2019-01-14] MEDS: oxyCODONE 5MG TAB PO PRN ×3 (07:38→23:51)
[2019-01-14] MEDS: CEFDINIR 300 MG CAP (OMNICEF) PO SCH ×2 (09:25→20:47)
[2019-01-14] MEDS: HEPARIN DRIP 25,000 UNITS in APPROPRIATE DILUENT 1 EA IV SCH (13:01)
[2019-01-14 14:00] VITALS: BP 133/84
--- NOTE | 2019-01-14 14:54 | IPNPDOC ---
Subjective Date Seen The patient was seen on 01/14/19. Subjective Chief Complaint/HPI Patient seen and examined at the bedside. Denies any complaints of chest pain, palpitation, shortness of breath, or any nausea/vomiting/diarrhea. He has cleared physical therapy. Objective Physical Examination General Exam: Positive: Alert, Cooperative, No Acute Distress Eye Exam: Negative: Sclera icteric ENT Exam: Positive: Atraumatic, Mucous membr. moist/pink Neck Exam: Negative: JVD Chest Exam: Positive: Clear to auscultation, Normal air movement, Other (chemo port present) Heart Exam: Positive: Rate Normal, Regular Rhythm, Normal S1, Normal S2; Negative: Murmurs, Rubs Abdomen Exam: Positive: Soft; Negative: Tenderness Extremity Exam: Negative: Tenderness, Swelling Neuro Exam: Positive: Normal Speech Psych Exam: Positive: Oriented x 3 Assessment /Plan Plan/VTE VTE Prophylaxis Ordered?: Yes Plan Bilateral Pulmonary Emboli, RLE DVT CT angiogram of the chest--Extensive PE notable in all lobes on CTA Chest Ultrasound of the legs notable for RLE DVT in popliteal vein 2-D echocardiogram notable for preserved LVEF, dilated right heart chambers noted Vascular Surgery consulted---s/p tPA treatment Currently on Heparin gtt bridge to PO Coumadin Patient remains hemodynamically stable We will cont to monitor Elevated Troponin Level 2/2 Above Serial Markers downtrending Possible Mild bilateral lower lobe atelectasis vs infiltrates WBC has normalized Patient remains afebrile Cultures unrevealing Vanco/Cefepime transitioned to PO Cefdinir We will cont to monitor Hodgkin's Lymphoma Patient has been getting chemotherapy [id number] since August Last session was on 01/03/19 in [place], [place] Follow up as outpatient DVT Prophylaxis On Heparin gtt/Coumadin transition at this time. Disposition-Anticipate discharge home tomorrow once the patient's INR has been therapeutic for 24 hours VS, I&O, 24H, Fishbone Vital Signs/I&O Vital Signs Date Time Temp Pulse Resp B/P (MAP) Pulse Ox O2 Delivery O2 Flow Rate FiO2 01/14/19 08:08 18 01/14/19 06:00 98.7 70 127/73 (91) 93 01/12/19 08:00 01/08/19 02:25 Room Air I&O- Last 24 Hours up to 6 AM 01/14/19 05:59 Intake Total 1986 ml Output Total 550 ml Balance 1436 ml Laboratory Data 24H LABS Laboratory Tests 2 01/14/19 06:08: Immature Granulocyte % (Auto) 1.4, White Blood Count 5.0, Red Blood Count 3.71L, Hemoglobin 10.8L, Hematocrit 33.8L, Mean Corpuscular Volume 91.1, Mean Corpuscular Hemoglobin 29.1, Mean Corpuscular Hemoglobin Concent 32.0, Red Cell Distribution Width 16.7H, Platelet Count 295, Neutrophils (%) (Auto) 57.4, Lymphocytes (%) (Auto) 20.2L, Monocytes (%) (Auto) 17.0H, Eosinophils (%) (Auto) 2.8, Basophils (%) (Auto) 1.2H, Neutrophils # (Auto) 2.9, Lymphocytes # (Auto) 1.0L, Monocytes # (Auto) 0.9H, Eosinophils # (Auto) 0.1, Basophils # (Auto) 0.1, Nucleated Red Blood Cells % (auto) 0.0, Prothrombin Time 22.9H, Prothromb Time International Ratio 2.05, Activated Partial Thromboplast Time 78.5H, Anion Gap 7L, Glomerular Filtration Rate > 60.0, Blood Urea Nitrogen 11, Creatinine 0.86, Sodium Level 139, Potassium Level 4.5, Chloride Level 108H, Carbon Dioxide Level 24, Calcium Level 8.8 CBC/BMP Laboratory Tests 01/14/19 06:08 Red Blood Count 3.71 L, Mean Corpuscular Volume 91.1, Mean Corpuscular Hemoglobin 29.1, Mean Corpuscular Hemoglobin Concent 32.0, Red Cell Distribution Width 16.7 H, Neutrophils (%) (Auto) 57.4, Lymphocytes (%) (Auto) 20.2 L, Monocytes (%) (Auto) 17.0 H, Eosinophils (%) (Auto) 2.8, Basophils (%) (Auto) 1.2 H, Neutrophils # (Auto) 2.9, Lymphocytes # (Auto) 1.0 L, Monocytes # (Auto) 0.9 H, Eosinophils # (Auto) 0.1, Basophils # (Auto) 0.1, Calcium Level 8.8 Microbiology Microbiology 01/07/19 Blood Culture - Final, Complete NO GROWTH AFTER 5 DAYS 01/07/19 Blood Culture - Final, Complete NO GROWTH AFTER 5 DAYS 01/14/19 Stool Occult Blood (SIMON) - Final, Complete 01/13/19 Stool Occult Blood (SIMON) - Final, Complete 01/12/19 Stool Occult Blood (SIMON) - Final, Complete 01/09/19 Stool Occult Blood (SIMON) - Final, Complete 01/08/19 Gram Stain - Final, Complete 01/08/19 Sputum Culture - Final, Complete JUDY MCCULLOUGH MD Jan 14, 2019 14:54
[2019-01-14] MEDS: WARFARIN SOD 7.5 MG TAB PO SCH (17:07)
[2019-01-14] MEDS: FAMOTIDINE 20 MG TAB PO SCH (20:47)
[2019-01-14 22:00] VITALS: BP 131/83
[2019-01-15] MEDS: HEPARIN DRIP 25,000 UNITS in APPROPRIATE DILUENT 1 EA IV SCH ×2 (03:19→07:03)
[2019-01-15 06:00] VITALS: BP 117/55
[2019-01-15] MEDS: SODIUM CHLORIDE 0.9% INJ 10 ML SYR IV SCH ×2 (06:04→08:03)
[2019-01-15 06:07] LABS: BASO # 0.1 10^3/uL (0.0-0.2); EOS # 0.2 10^3/uL (0.0-0.50); EOS % 3.4 % (0.0-3.0); HEMATOCRIT 35.9 % (42.0-52.0); HEMOGLOBIN 11.4 g/dl (13.5-17.5); LYMPH # 1.3 10^3/uL (1.5-4.5); LYMPH % 22.9 % (24.0-44.0); MEAN CORPUSCULAR HEMOGLOBIN 29.1 pg (27.0-33.0); MEAN CORPUSCULAR HGB CONC 31.8 g/dl (32.0-36.5); MEAN CORPUSCULAR VOLUME 91.6 fl (80.0-96.0); MONO # 1.2 10^3/uL (0.0-0.8); MONO % 20.1 % (0.0-5.0); NEUTROPHILS % 50.9 % (36.0-66.0); PLATELET COUNT, AUTOMATED 330 10^3/uL (150-450); RED BLOOD COUNT 3.92 10^6/uL (4.30-6.10); WHITE BLOOD COUNT 5.9 10^3/uL (4.0-10.0)
[2019-01-15 06:17] LABS: INR 2.22; PROTHROMBIN TIME 24.4 SECONDS (11.8-14.0)
[2019-01-15 06:36] LABS: PARTIAL THROMBOPLASTIN TIME 119.3 SECONDS (25.0-38.4)
[2019-01-15 06:37] LABS: BLOOD UREA NITROGEN 11 MG/DL (7-18); CALCIUM LEVEL 8.6 MG/DL (8.5-10.1); CARBON DIOXIDE LEVEL 23 MEQ/L (21-32); CHLORIDE LEVEL 108 MEQ/L (98-107); CREATININE FOR GFR 0.85 MG/DL (0.70-1.30); GLOMERULAR FILTRATION RATE > 60.0 (>60); GLUCOSE, FASTING 86 MG/DL (70-100); POTASSIUM SERUM 4.6 MEQ/L (3.5-5.1); SODIUM LEVEL 138 MEQ/L (136-145)
[2019-01-15] MEDS: CEFDINIR 300 MG CAP (OMNICEF) PO SCH (08:03)
[2019-01-15] MEDS: oxyCODONE 5MG TAB PO PRN (08:03)
[2019-01-15] MEDS ORDERED: CEFD300CAP PO (11:11)
[2019-01-15] MEDS ORDERED: WARF-23 PO (11:11)
--- NOTE | 2019-01-15 19:26 | DS.PDOC ---
Discharge Summary General Date of Admission Jan 08, 2019 at 00:38 Date of Discharge 01/15/19 Primary Care Physician: Zachery Mijares Attending Physician: ZANE ZAMUDIO DO Specialist/Consultants Involve: Pablo Arana MD Discharge Summary PROCEDURES PERFORMED DURING STAY: PICC line inserted Right and left arm 01/09/19 IVC filter placed 01/09/19 ADMITTING DIAGNOSES: Sepsis with septic shock Hodgkin's Lymphoma Kidney stones DISCHARGE DIAGNOSES: Septic shock - RULED OUT Cardiogenic shock due to pulmonary embolism Bilateral pulmonary embolism - present on admission RLE DVT -present on admission Elevated troponin due to demand ischemia associated with PE (NSTEMI type II) Possible pneumonia (presumed bacterial) Hodgkins lymphoma COMPLICATIONS/CHIEF COMPLAINT: Sepsis. HISTORY OF PRESENT ILLNESS:38 year old male with Hodgkin's lymphoma diagnosed in january 2018 on chemotherapy last one was on 4 days prior to admission. He presented to the ED not feeling well for 2 days. He has been feeling very weak and tired with no energy. He has developed a cough which is productive of thick creamish phlegm. He denied any fever or chills. He had his port changed on 11/29/17 as it had fibrin sheath and was not working well. In ED his bp has been 90s/50s he has been getting fluid boluses. He is admitted for septic shock. See H&P for details. HOSPITAL COURSE: Patient was admitted. He was not in septic shock but found to have bilateral PE. HE was given TPA and started on heparin drip, then transitioned to warfarin. He was intially started on IV antibiotics (vanc/cefepime) and transitioned to oral cefdinir because unable to determine if atelectasis or infiltrate on CXR.Sputum culture not performed because of oropharyngeal contamination. Blood cultures remained negative. As for his hodgkins, Patient has been getting chemotherapy [id number] since August; Last session was on 01/03/19 in [place], [place]; he will need Follow up as outpatient DISCHARGE MEDICATIONS: Please see below. ALLERGIES: Please see below. PHYSICAL EXAMINATION ON DISCHARGE: VITAL SIGNS: Please see below. GENERAL: pleasant NAD AAOx3 HRRR LCTA Ext: no ankle edema LABORATORY DATA: Please see below. IMAGING: CT angiogram of the chest--Extensive PE notable in all lobes on CTA Chest Ultrasound of the legs notable for RLE DVT in popliteal vein 2-D echocardiogram notable for preserved LVEF, dilated right heart chambers noted PROGNOSIS:good ACTIVITY: as tolerated DIET: regular as tolerated DISCHARGE PLAN:home DISCHARGE INSTRUCTIONS: 1. follow up with PCP in 5-7 days 2. finish cefnidir for 5 more days 3. Warfarin 5mg on M,W,F and 7.5 all other days 4. Follow up with heme/onc as previously scheduled. ITEMS TO FOLLOWUP ON ON OUTPATIENT: 1. INR in 2 days - with goal of INR 2-3 DISCHARGE CONDITION: stable TIME SPENT ON DISCHARGE: 45 minutes Vital Signs/I&Os Vital Signs Date Time Temp Pulse Resp B/P (MAP) Pulse Ox O2 Delivery O2 Flow Rate FiO2 01/15/19 08:33 16 01/15/19 06:00 98.2 61 117/55 (75) 94 01/12/19 08:00 I&O- Last 24 Hours up to 6 AM 01/15/19 05:59 Intake Total 1982 ml Balance 1982 ml Laboratory Data Labs 24H Laboratory Tests 2 01/15/19 05:51: Immature Granulocyte % (Auto) 1.7, White Blood Count 5.9, Red Blood Count 3.92L, Hemoglobin 11.4L, Hematocrit 35.9L, Mean Corpuscular Volume 91.6, Mean Corpuscular Hemoglobin 29.1, Mean Corpuscular Hemoglobin Concent 31.8L, Red Cell Distribution Width 16.7H, Platelet Count 330, Neutrophils (%) (Auto) 50.9, Lymphocytes (%) (Auto) 22.9L, Monocytes (%) (Auto) 20.1H, Eosinophils (%) (Auto) 3.4H, Basophils (%) (Auto) 1.0, Neutrophils # (Auto) 3.0, Lymphocytes # (Auto) 1.3L, Monocytes # (Auto) 1.2H, Eosinophils # (Auto) 0.2, Basophils # (Auto) 0.1, Nucleated Red Blood Cells % (auto) 0.0, Prothrombin Time 24.4H, Prothromb Time International Ratio 2.22, Activated Partial Thromboplast Time 119.3H, Anion Gap 7L, Glomerular Filtration Rate > 60.0, Blood Urea Nitrogen 11, Creatinine 0.85, Sodium Level 138, Potassium Level 4.6, Chloride Level 108H, Carbon Dioxide Level 23, Calcium Level 8.6 CBC/BMP Laboratory Tests 01/15/19 05:51 Red Blood Count 3.92 L, Mean Corpuscular Volume 91.6, Mean Corpuscular Hemoglobin 29.1, Mean Corpuscular Hemoglobin Concent 31.8 L, Red Cell Distributi on Width 16.7 H, Neutrophils (%) (Auto) 50.9, Lymphocytes (%) (Auto) 22.9 L, Monocytes (%) (Auto) 20.1 H, Eosinophils (%) (Auto) 3.4 H, Basophils (%) (Auto) 1.0, Neutrophils # (Auto) 3.0, Lymphocytes # (Auto) 1.3 L, Monocytes # (Auto) 1.2 H, Eosinophils # (Auto) 0.2, Basophils # (Auto) 0.1, Calcium Level 8.6 Microbiology Microbiology 01/07/19 Blood Culture - Final, Complete NO GROWTH AFTER 5 DAYS 01/07/19 Blood Culture - Final, Complete NO GROWTH AFTER 5 DAYS 01/14/19 Stool Occult Blood (SIMON) - Final, Complete 01/13/19 Stool Occult Blood (SIMON) - Final, Complete 01/12/19 Stool Occult Blood (SIMON) - Final, Complete 01/09/19 Stool Occult Blood (SIMON) - Final, Complete 01/08/19 Gram Stain - Final, Complete 01/08/19 Sputum Culture - Final, Complete Discharge Medications Scheduled Cefdinir (Cefdinir) 300 Mg Capsule, 300 MG PO BID Hydrocortisone (Hydrocortisone) 453.6 Gm Cream..g., 1 DOSE TOP BID, (Reported) USES ON CHEST Loratadine (Claritin) 10 Mg Tablet, 10 MG PO DAILY, (Reported) Warfarin Sodium (Warfarin Sodium) 5 Mg Tablet, 1 TAB PO ASDIRECTED 5mg on MON,Wed,Fri; 7.5mg on all other days; further directions and orders per PCP Scheduled PRN Albuterol Sulfate (Ventolin Hfa) 18 Gm Hfa.aer.ad, 2 PUFF INH QID PRN for SHORTNESS OF BREATH, (Reported) Fluticasone Propionate (Flonase Allergy Relief) 9.9 Ml [place].susp, 2 SPRAYS NA DAILY PRN for NASAL CONGESTION, (Reported) Nicotine Polacrilex (Nicotine Gum) 4 Mg Gum, 4 MG MT Q1H PRN for SMOKING CESSATION, (Reported) Oxycodone HCl (Oxycodone HCl) 5 Mg Tablet, 5 MG PO Q8H PRN for PAIN, (Reported) Allergies Coded Allergies: amoxicillin (Verified Allergy, Unknown, 11/27/18) tramadol (Verified Allergy, Unknown, 11/27/18) ZANE ZAMUDIO DO Jan 15, 2019 11:18
--- NOTE | 2019-01-18 07:54 | REPIR ---
DATE OF PROCEDURE: 01/08/2019 ATTENDING SURGEON: Dr. Yves Arana PEDIATRIC CLINICAL NURSE SPECIALIST: Arabella Babb PREOPERATIVE DIAGNOSES: Pulmonary embolus. Lymphoma. Right popliteal vein deep vein thrombosis (DVT). POSTOPERATIVE DIAGNOSES: Pulmonary embolus. Lymphoma. Right popliteal vein deep vein thrombosis (DVT). PROCEDURE: Ultrasound-guided right basilic vein cannulation. Inferior vena cava filter placement at the L3-4 level, 50 cm. Dual lumen PICC line placement with the tip in the superior vena cava right atrial junction for pulmonary thrombolysis. INDICATION: The patient is a 38-year-old male with lymphoma who developed popliteal vein DVT and massive pulmonary embolus with shortness of breath and right heart strain. The patient will undergo placement of an inferior vena cava filter which is retrievable as well as pulmonary thrombolysis. ANESTHESIA: Local with 10 mL of 2% lidocaine mixed with 0.5% Marcaine. FLUORO TIME: 0.1 minutes. CONTRAST: None. COMPLICATIONS: None. DRAINS: None. SPECIMENS: None. IMPLANTS: OptionELITE retrievable inferior vena cava filter. PROCEDURE: Patient was taken to the angiography suite, placed supine on the angiography room table and the right upper extremity was prepped and draped in a standard surgical fashion. The right brachial basilic vein was cannulated. A catheter was placed in the inferior vena cava under fluoroscopic guidance and the filter was placed at the L3-L4 level. The catheter was removed and a 50 cm PICC line was placed with the tip in the superior vena cava right atrial junction for initiation of pulmonary thrombolysis. Dressings were applied. The patient tolerated procedure well. All instrument, sponge and needle counts were correct at the end the case. There were no complications. Dr. Arana was present for and directed the entire case. The patient was transferred to the ICU for pulmonary thrombolysis.
--- NOTE | 2019-01-18 08:05 | REPIR ---
DATE OF PROCEDURE: 01/08/2019 ATTENDING SURGEON: Dr. Yves Arana ORTHOPAEDIC DOCTOR: Arabella Babb PREOPERATIVE DIAGNOSES: Pulmonary embolus. Right popliteal vein DVT. Cor pulmonale. Shortness of breath. Lymphoma. POSTOPERATIVE DIAGNOSES: Pulmonary embolus. Right popliteal vein DVT. Cor pulmonale. Shortness of breath. Lymphoma. PROCEDURE: Ultrasound-guided left brachial vein 45 cm PICC line placement. INDICATION: Patient requires a PICC line for blood draws and medication instillation during his pulmonary thrombolysis. ANESTHESIA: Local with 10 mL of 2% lidocaine mixed with 0.5% Marcaine. FLUORO TIME: 0.1 minutes. CONTRAST : None. COMPLICATIONS: None. DRAINS: None. SPECIMENS: None. IMPLANTS: None. PROCEDURE: Patient remained on the angiography room table. The left upper extremity was prepped and draped in the standard surgical fashion. Ultrasound was used guide cannulation of the left brachial vein and a 45 cm PICC line was placed. Both ports were aspirated, noted to aspirate easily and then flushed with heparinized saline. Dressings were applied. The patient tolerated the procedure well. All instrument, sponge and needle counts were correct at the end of the case. There were no complications. Dr. Arana was present for and directed the entire case. The patient was transferred to the ICU for pulmonary thrombolysis.
== END 2019-01-15 15:03 | disposition home or self-care (01) | DRG 197 ==
LOC: M ED 21:57 → M ED INP 01-08 00:38 → M ICU 01-08 02:50 → M MSPAV 01-12 14:36
PROVIDERS: ADMIT Internal Medicine Nephrology; ATTEND Family Medicine
PROC: 06L03DZ Occlusion of Inferior Vena Cava with Intraluminal Device, Percutaneous Approach (ICD-10-PCS; principal; 2019-01-08 20:00)
PROC: 02HV33Z Insertion of Infusion Device into Superior Vena Cava, Percutaneous Approach (ICD-10-PCS; 2019-01-09)
DX: I82.431 Acute embolism and thrombosis of right popliteal vein (principal); I26.99 Other pulmonary embolism without acute cor pulmonale; R57.0 Cardiogenic shock; I21.A1 Myocardial infarction type 2; J15.9 Unspecified bacterial pneumonia; C81.90 Hodgkin lymphoma, unspecified, unspecified site; I95.9 Hypotension, unspecified; Z79.899 Other long term (current) drug therapy

== ENCOUNTER → 2019-01-17 | Outpatient (CLI) | payer OTHER ==
[~2019-01-17] MED LIST changes: +CEFD300CAP PO; +HYDR2.5C TOP; +NICO4GUM47 MT; +ONDA8TAB7; +WARF-23 PO
[2019-01-17 15:02] LABS: INR 2.54; PROTHROMBIN TIME 27.2 SECONDS (11.8-14.0)
== END ==
LOC: M LAB 14:25
PROVIDERS: ATTEND Physician Assistant Medical
DX: I26.99 Other pulmonary embolism without acute cor pulmonale (principal); I82.409 Acute embolism and thrombosis of unspecified deep veins of unspecified lower extremity

== ENCOUNTER → 2019-02-13 | Outpatient (CLI) | payer OTHER ==
[2019-02-13 12:21] LABS: INR 1.94; PROTHROMBIN TIME 21.9 SECONDS (11.8-14.0)
== END ==
LOC: M LAB 11:08
PROVIDERS: ATTEND Physician Assistant Medical
DX: I82.409 Acute embolism and thrombosis of unspecified deep veins of unspecified lower extremity (principal)

== ENCOUNTER → 2019-02-20 | Outpatient (CLI) | payer OTHER ==
[2019-02-20 13:05] LABS: BASO # 0.1 10^3/uL (0.0-0.2); BASO % 1.2 % (0.0-1.0); EOS # 0.5 10^3/uL (0.0-0.5); EOS % 5.8 % (0.0-3.0); HEMOGLOBIN 12.9 g/dl (13.5-17.5); LYMPH # 1.4 10^3/uL (1.5-5.0); LYMPH % 15.7 % (24.0-44.0); MEAN CORPUSCULAR HEMOGLOBIN 28.2 pg (27.0-33.0); MEAN CORPUSCULAR HGB CONC 31.5 g/dl (32.0-36.5); MEAN CORPUSCULAR VOLUME 89.5 fl (80.0-96.0); MONO % 10.7 % (0.0-5.0); NEUTROPHILS # 5.8 10^3/uL (1.5-8.5); NEUTROPHILS % 65.1 % (36.0-66.0); PLATELET COUNT, AUTOMATED 245 10^3/uL (150-450); RED BLOOD COUNT 4.58 10^6/uL (4.30-6.10); WHITE BLOOD COUNT 8.9 10^3/uL (4.0-10.0)
[2019-02-20 13:15] LABS: INR 2.69; PROTHROMBIN TIME 28.5 SECONDS (11.8-14.0)
[2019-02-20 13:37] LABS: ALBUMIN 3.4 GM/DL (3.2-5.2); ALT/SGPT 71 U/L (12-78); BILIRUBIN,TOTAL 0.2 MG/DL (0.2-1.0); BLOOD UREA NITROGEN 9 MG/DL (7-18); CALCIUM LEVEL 8.7 MG/DL (8.5-10.1); CARBON DIOXIDE LEVEL 23 MEQ/L (21-32); CHLORIDE LEVEL 113 MEQ/L (98-107); CHOLESTEROL LEVEL 180 MG/DL (<200); CREATININE FOR GFR 0.89 MG/DL (0.70-1.30); FREE T4 0.98 NG/DL (0.76-1.46); GLOMERULAR FILTRATION RATE > 60.0 (>60); GLUCOSE, FASTING 85 MG/DL (70-100); HDL CHOLESTEROL 45 MG/DL (>40); LDL CHOLESTEROL 114 MG/DL (<100); NON-HDL-C 135 MG/DL; SODIUM LEVEL 143 MEQ/L (136-145); TOTAL PROTEIN 6.3 GM/DL (6.4-8.2); TRIGLYCERIDES LEVEL 107 MG/DL (<150)
== END ==
LOC: M WUC 10:38
PROVIDERS: ATTEND Physician Assistant Medical
DX: R53.83 Other fatigue (principal); I10 Essential (primary) hypertension; Z13.220 Encounter for screening for lipoid disorders

== ENCOUNTER → 2019-02-27 | Outpatient (CLI) | payer OTHER ==
[2019-02-27 17:39] LABS: INR 2.41; PROTHROMBIN TIME 26.1 SECONDS (11.8-14.0)
== END ==
LOC: M WUC 14:36
PROVIDERS: ATTEND Physician Assistant Medical
DX: I82.409 Acute embolism and thrombosis of unspecified deep veins of unspecified lower extremity (principal)

== ENCOUNTER → 2019-03-19 | Outpatient (CLI) | payer OTHER ==
[2019-03-19 17:10] LABS: INR 1.28; PROTHROMBIN TIME 15.7 SECONDS (11.8-14.0)
== END ==
LOC: M WUC 14:23
PROVIDERS: ATTEND Physician Assistant Medical
DX: I82.409 Acute embolism and thrombosis of unspecified deep veins of unspecified lower extremity (principal)

== ENCOUNTER → 2019-03-28 | Outpatient (CLI) | payer OTHER ==
[2019-03-28 17:12] LABS: INR 3.54; PROTHROMBIN TIME 35.5 SECONDS (11.8-14.0)
== END ==
LOC: M WUC 13:37
PROVIDERS: ATTEND Physician Assistant Medical
DX: I82.409 Acute embolism and thrombosis of unspecified deep veins of unspecified lower extremity (principal)

== ENCOUNTER → 2019-04-15 | Outpatient (CLI) | payer OTHER ==
--- NOTE | 2019-04-16 06:47 | REP ---
Clinical: Symptoms related to chronic lower extremity fatigue Technique: Real time wetzel scale and color Doppler evaluation of the bilateral lower extremity arterial vasculature using linear high frequency transducer. Findings: Wetzel scale and color images demonstrate very minimal atheromatous changes without evidence for narrowing/occlusion. Doppler interrogation demonstrates normal triphasic arterial wave forms and velocities bilaterally. Right SAKINA: 1.2 Left SAKINA: 1.0 Peak systolic velocities (cm/sec) RIGHT LEFT Common femoral artery 141.1 142.5 Profunda femoris 118.6 151.8 SFA (proximal) 69.1 96.2 SFA (mid) 91.3 114.2 SFA (distal) 59.2 87.7 Popliteal artery 53.9 44.6 ARCHIE (prox.) 31.1 28.6 Tibioperoneal trunk 48.9 56.7 [employer] (prox.) 49.4 81.5 [employer]IC (distal) 93.6 113.8 ARCHIE (distal) 69.2 41.8 Impression: Essentially normal examination. Minimal atheromatous changes noted without narrowing/stenosis or occlusion. Electronically Signed by Austin Benson MD 04/16/2019 06:39 A
== END ==
LOC: M RAD 07:16
PROVIDERS: ATTEND Physician Assistant Medical
DX: M62.89 Other specified disorders of muscle (principal); I70.203 Unspecified atherosclerosis of native arteries of extremities, bilateral legs

== ENCOUNTER 2019-06-14 11:22 | Emergency (ER) | payer OTHER ==
[~2019-06-14] VITALS: Ht 182.9 cm; Wt 105.7 kg
[~2019-06-14 11:22] MED LIST changes: +ONDA8TAB10; -ONDA8TAB7
[2019-06-14] MEDS ORDERED: GABA-1171 PO (11:42)
[2019-06-14] MEDS ORDERED: ELIQ5TAB PO (11:42)
[2019-06-14] MEDS ORDERED: HYDR1CRE30 TOP (12:33)
[2019-06-14 12:34] LABS: BASO # 0.1 10^3/uL (0.0-0.2); BASO % 1.2 % (0.0-1.0); EOS # 0.4 10^3/uL (0.0-0.5); EOS % 6.3 % (0.0-3.0); HEMOGLOBIN 15.3 g/dl (13.5-17.5); LYMPH # 1.5 10^3/uL (1.5-5.0); LYMPH % 22.3 % (24.0-44.0); MEAN CORPUSCULAR HEMOGLOBIN 30.4 pg (27.0-33.0); MEAN CORPUSCULAR HGB CONC 31.9 g/dl (32.0-36.5); MEAN CORPUSCULAR VOLUME 95.4 fl (80.0-96.0); MONO # 0.6 10^3/uL (0.0-0.8); MONO % 9.1 % (0.0-5.0); NEUTROPHILS # 3.9 10^3/uL (1.5-8.5); NEUTROPHILS % 60.5 % (36.0-66.0); PLATELET COUNT, AUTOMATED 187 10^3/uL (150-450); RED BLOOD COUNT 5.03 10^6/uL (4.30-6.10); WHITE BLOOD COUNT 6.5 10^3/uL (4.0-10.0)
[2019-06-14] MEDS ORDERED: ISOVUE-370 76% 100ML VIAL (Q9967) As Ordered ONE (12:38)
--- NOTE | 2019-06-14 13:46 | REP ---
INDICATION: Posterior occipital painful lump. PROCEDURE: CT neck with contrast. COMPARISON STUDIES: none FINDINGS: There are scattered cervical chain lymph nodes seen without evidence of lymphadenopathy. No discrete mass lesion identified. The cutaneous and subcutaneous tissues posteriorly are unremarkable. Oropharynx, nasopharynx, hypopharynx and larynx appear unremarkable. Lung apices are clear. Osseous structures and vascular structures appear unremarkable. Paranasal sinuses and mastoid air cells are clear IMPRESSION: Unremarkable study. If continued concern, directed ultrasound may be informative. Electronically Signed by Gabino Hart MD 06/14/2019 01:38 P
[2019-06-14 13:54] VITALS: BP 114/68
== END 2019-06-14 13:55 | disposition home or self-care (01) ==
LOC: M ED 11:22
DX: R22.1 Localized swelling, mass and lump, neck (principal); Z85.72 Personal history of non-Hodgkin lymphomas; I95.9 Hypotension, unspecified; F32.9 Major depressive disorder, single episode, unspecified; F17.200 Nicotine dependence, unspecified, uncomplicated; Z86.79 Personal history of other diseases of the circulatory system; Z86.718 Personal history of other venous thrombosis and embolism; Z92.21 Personal history of antineoplastic chemotherapy; Z92.3 Personal history of irradiation; Z87.01 Personal history of pneumonia (recurrent); Z79.01 Long term (current) use of anticoagulants; Z79.899 Other long term (current) drug therapy; Z88.0 Allergy status to penicillin; Z88.5 Allergy status to narcotic agent
CPT/HCPCS: 70491; 80047; 85025; 99283; Q9967

== ENCOUNTER 2019-07-17 14:37 | Inpatient (IN) | payer OTHER ==
[~2019-07-17] VITALS: Ht 185.4 cm; Wt 95.1 kg
[~2019-07-17 14:37] MED LIST changes: +ELIQ5TAB PO; +GABA-1171 PO; +HYDR1CRE30 TOP
[2019-07-17] MEDS ORDERED: ACET-683 PO (14:50)
[2019-07-17 15:35] LABS: INFLUENZA A AMPLIFICATION NEGATIVE (NEGATIVE); INFLUENZA B AMPLIFICATION NEGATIVE (NEGATIVE)
[2019-07-17] MEDS ORDERED: ACETAMINOPHEN TAB 650MG DOSE (2X325MG) PO ONE (18:00)
[2019-07-17] MEDS ORDERED: SODIUM CHLORIDE 0.9% INJ 10 ML SYR IV PRN (18:45)
[2019-07-17] MEDS ORDERED: NS 1,000 ML IV ONE (18:45)
[2019-07-17 19:33] LABS: BASO # 0.1 10^3/uL (0.0-0.2); BASO % 0.7 % (0.0-1.0); EOS # 0.2 10^3/uL (0.0-0.5); EOS % 1.5 % (0.0-3.0); HEMATOCRIT 41.7 % (42.0-52.0); HEMOGLOBIN 14.2 g/dl (13.5-17.5); LYMPH # 0.7 10^3/uL (1.5-5.0); MEAN CORPUSCULAR HEMOGLOBIN 30.7 pg (27.0-33.0); MEAN CORPUSCULAR HGB CONC 34.1 g/dl (32.0-36.5); MEAN CORPUSCULAR VOLUME 90.3 fl (80.0-96.0); MONO # 1.3 10^3/uL (0.0-0.8); MONO % 11.6 % (0.0-5.0); NEUTROPHILS % 79.8 % (36.0-66.0); PLATELET COUNT, AUTOMATED 176 10^3/uL (150-450); RED BLOOD COUNT 4.62 10^6/uL (4.30-6.10); WHITE BLOOD COUNT 11.3 10^3/uL (4.0-10.0)
[2019-07-17 20:00] LABS: BLOOD UREA NITROGEN 8 MG/DL (7-18); CALCIUM LEVEL 8.9 MG/DL (8.5-10.1); CARBON DIOXIDE LEVEL 23 MEQ/L (21-32); CHLORIDE LEVEL 105 MEQ/L (98-107); CK-MB VALUE MASS 1.1 NG/ML (<3.6); CPK CREATINE PHOSPHOKINASE 43 U/L (39-308); CREATININE FOR GFR 0.93 MG/DL (0.70-1.30); GLOMERULAR FILTRATION RATE > 60.0 (>60); GLUCOSE, FASTING 99 MG/DL (70-100); MB/CK RELATIVE INDEX 2.56 (< OR =4); POTASSIUM SERUM 3.5 MEQ/L (3.5-5.1); SODIUM LEVEL 137 MEQ/L (136-145); TROPONIN I 0.02 NG/ML (< 0.10)
--- NOTE | 2019-07-17 20:22 | ECGEPIP ---
[facility] - ED Test Date: 2019-07-17 Pat Name: ZORAIDA NAVAS Department: Room: - Gender: Male Therapist: alee : 1980 Requested By: CRESENCIO Ken Order Number: [id number] Reading MD: Basia Arango Measurements Intervals [place]ba Rate: 105 P: 24 NJ: 148 QRS: 41 QRSD: 100 T: 30 QT: 371 QTc: 491 Interpretive Statements SINUS TACHYCARDIA NONSPECIFIC ST & T-WAVE ABNORMALITY, LESS PRONOUNCED COMPARED 01/07/19 ABNORMAL RHYTHM ECG Electronically Signed on 07-17-2019 20:22:25 EST by Basia Arango
[2019-07-17] MEDS ORDERED: ISOVUE-370 76% 100ML VIAL (Q9967) As Ordered ONE (20:51)
--- NOTE | 2019-07-17 22:17 | REPVR ---
PROCEDURE INFORMATION: Exam: CT Abdomen And Pelvis With Contrast Exam date and time: 07/17/2019 9:01 PM Age: 39 years old Clinical indication: Abdominal pain; Localized; Left upper quadrant (luq); Additional info: Llq pain TECHNIQUE: Imaging protocol: Computed tomography of the abdomen and pelvis with intravenous contrast. Radiation optimization: All CT scans at this facility use at least one of these dose optimization techniques: automated exposure control; mA and/or kV adjustment per patient size (includes targeted exams where dose is matched to clinical indication); or iterative reconstruction. Contrast material: ISOVUE 370; Contrast volume: 100 ml; Contrast route: IV; COMPARISON: CT ABD/PEL W/IV ORAL CONTRAS 01/08/2019 8:21 AM (report not provided) FINDINGS: Lungs: The visualized lung bases demonstrate minor dependent atelectasis. Liver: The liver is again mildly fatty in density. It appears otherwise unremarkable. Gallbladder and bile ducts: No gallstones are evident, but ultrasound would be more sensitive. No gross biliary ductal dilatation. Pancreas: Normal. No ductal dilation. Spleen: Normal. No splenomegaly. Adrenals: Normal. No mass. Kidneys and ureters: Normal. No hydronephrosis. Stomach and bowel: The unopacified small bowel is not significantly distended to suggest obstruction. There is again mild sigmoid colonic diverticulosis without evidence for diverticulitis. The large bowel is otherwise grossly unremarkable in appearance. Appendix: The appendix appears normal. Intraperitoneal space: No free air or significant free fluid. Vasculature: An IVC filter has been placed. The abdominal aorta is nonaneurysmal. Lymph nodes: Unremarkable. No enlarged lymph nodes. Bladder: Grossly unremarkable. Reproductive: Unremarkable as visualized. Bones/joints: Degenerative changes again involve the spine and hips. Soft tissues: A small fat containing umbilical hernia is again present. IMPRESSION: 1. No acute abnormality identified. 2. Nonurgent findings similar to 01/08/19, including mild sigmoid colonic diverticulosis without evidence for diverticulitis, small fat containing umbilical hernia and hepatic steatosis. 3. Interval placement of IVC filter. Electronically signed by: Srinath Helms On 07/17/2019 22:17:25 PM
[2019-07-17] MEDS ORDERED: CLINDAMYCIN 600 MG in IV 1 EA IV ONE (22:30)
[2019-07-17 22:49] LABS: HEPATITIS B SURFACE ANTIGEN NEGATIVE (NEGATIVE)
[2019-07-17 23:16] LABS: HIV SCREEN CENTAUR SOURCE NEGATIVE (NEGATIVE)
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
[2019-07-17] MEDS ORDERED: PROAAER10 INH (23:41)
[2019-07-17] MEDS ORDERED: ACET-897 PO (23:41)
[2019-07-17] MEDS ORDERED: GABA-843 PO (23:41)
[2019-07-17] MEDS ORDERED: ELIQ5TAB PO (23:41)
[2019-07-17] MEDS: NS 1,000 ML IV SCH (23:56)
[2019-07-18] LABS: HEPATITIS C VIRUS ABY INDEX > 11.0 INDEX (<0.8)
[2019-07-18 00:45] VITALS: BP 127/80
[2019-07-18 04:00] VITALS: BP 105/67
[2019-07-18] MEDS: CLINDAMYCIN 600 MG in IV 1 EA IV SCH ×3 (06:13→22:27)
[2019-07-18 06:14] VITALS: BP 124/80
--- NOTE | 2019-07-18 07:27 | REP ---
CHEST: SINGLE VIEW: There is no evidence of acute infiltrate. No pleural effusion is seen. The heart is normal in size. The mediastinal silhouette is unremarkable. The visualized osseous structures are intact. Right central venous catheter is seen with the tip in the right atrium. IMPRESSION: No acute pulmonary disease. Electronically Signed by Reinier Wetzel MD 07/18/2019 01:03 P
--- NOTE | 2019-07-18 08:14 | IPN ---
DATE: 07/18/2019 Pj is seen on [facility]. He was admitted with an infected left lip. His lab work is still pending. He has not noticed any change in the swollen lip from yesterday, which is from presumed infection from an ingrown hair. PHYSICAL EXAMINATION: Afebrile. Maximum temperature (t-max) 100.3. Lower lip is swollen. There is no fluctuant area. It has not come to a point. There is no subglottal swelling nor anything involving the tongue or airway. Lungs are clear. Heart has regular rhythm. LABORATORIES: Pending. IMPRESSION: 1. Cellulitis of the face with infected lip. PLAN: Continue clindamycin. Lab work is pending.
[2019-07-18 08:26] LABS: HEMATOCRIT 42.8 % (42.0-52.0); HEMOGLOBIN 14.2 g/dl (13.5-17.5); MEAN CORPUSCULAR HEMOGLOBIN 30.1 pg (27.0-33.0); MEAN CORPUSCULAR HGB CONC 33.2 g/dl (32.0-36.5); MEAN CORPUSCULAR VOLUME 90.7 fl (80.0-96.0); PLATELET COUNT, AUTOMATED 173 10^3/uL (150-450); RED BLOOD COUNT 4.72 10^6/uL (4.30-6.10); WHITE BLOOD COUNT 9.1 10^3/uL (4.0-10.0)
[2019-07-18] MEDS ORDERED: APIXABAN 5 MG TAB (ELIQUIS) PO SCH (09:00)
[2019-07-18 09:08] LABS: BLOOD UREA NITROGEN 6 MG/DL (7-18); CALCIUM LEVEL 8.1 MG/DL (8.5-10.1); CARBON DIOXIDE LEVEL 23 MEQ/L (21-32); CHLORIDE LEVEL 108 MEQ/L (98-107); CREATININE FOR GFR 0.91 MG/DL (0.70-1.30); GLOMERULAR FILTRATION RATE > 60.0 (>60); GLUCOSE, FASTING 98 MG/DL (70-100); MAGNESIUM LEVEL 1.9 MG/DL (1.8-2.4); POTASSIUM SERUM 3.6 MEQ/L (3.5-5.1); SODIUM LEVEL 140 MEQ/L (136-145)
[2019-07-18] MEDS: NS 1,000 ML IV SCH ×3 (09:28→22:27)
[2019-07-18] MEDS: ACETAMINOPHEN 500 MG TAB PO PRN ×2 (12:51→21:00)
[2019-07-18 14:00] VITALS: BP 114/77
[2019-07-18] MEDS: MUPIROCIN 2% OINT 22 GM TUBE TOP SCH ×2 (15:55→21:00)
[2019-07-18 19:58] VITALS: BP 134/87
[2019-07-19 06:00] VITALS: BP 120/61
[2019-07-19] MEDS: CLINDAMYCIN 600 MG in IV 1 EA IV SCH ×3 (06:07→22:15)
[2019-07-19] MEDS: NS 1,000 ML IV SCH ×3 (06:08→23:44)
[2019-07-19 07:22] LABS: HEMATOCRIT 38.9 % (42.0-52.0); HEMOGLOBIN 13.5 g/dl (13.5-17.5); MEAN CORPUSCULAR HEMOGLOBIN 31.5 pg (27.0-33.0); MEAN CORPUSCULAR HGB CONC 34.7 g/dl (32.0-36.5); MEAN CORPUSCULAR VOLUME 90.7 fl (80.0-96.0); PLATELET COUNT, AUTOMATED 162 10^3/uL (150-450); RED BLOOD COUNT 4.29 10^6/uL (4.30-6.10); WHITE BLOOD COUNT 8.8 10^3/uL (4.0-10.0)
[2019-07-19 07:49] LABS: BLOOD UREA NITROGEN 6 MG/DL (7-18); CALCIUM LEVEL 8.1 MG/DL (8.5-10.1); CARBON DIOXIDE LEVEL 23 MEQ/L (21-32); CHLORIDE LEVEL 113 MEQ/L (98-107); CREATININE FOR GFR 0.82 MG/DL (0.70-1.30); GLOMERULAR FILTRATION RATE > 60.0 (>60); GLUCOSE, FASTING 96 MG/DL (70-100); POTASSIUM SERUM 3.9 MEQ/L (3.5-5.1); SODIUM LEVEL 141 MEQ/L (136-145)
[2019-07-19] MEDS: APIXABAN 5 MG TAB (ELIQUIS) PO SCH ×2 (09:29→22:13)
[2019-07-19] MEDS: ACETAMINOPHEN 500 MG TAB PO PRN ×3 (09:32→22:14)
[2019-07-19] MEDS: MUPIROCIN 2% OINT 22 GM TUBE TOP SCH ×3 (09:33→22:15)
--- NOTE | 2019-07-19 11:59 | IPN ---
DATE: 07/19/2019 Pj's lip is a little less swollen. He did grow out Methicillin-resistant Staphylococcus aureus (MRSA). He apparently had a lesion on his abdomen as well. He feels he is a little better today. No shortness of breath (SOB), stridor, trouble handling secretion. PHYSICAL EXAMINATION: Vital signs stable. Afebrile. His lower lip is less swollen though looks quite inflamed. His abdomen has a crusted 1 cm lesion superior to the umbilicus. LABORATORIES: WBC and BMP unremarkable. IMPRESSION: 1. MRSA infection of lip, from probable MRSA carriage with a separate skin lesion on the abdomen. PLAN: He is allergic to penicillin so will continue using the clindamycin; I would put him on ceftaroline if it were not for the penicillin allergy. Will continue his clindamycin to which the MRSA appears to be sensitive. I expect he will probably be able to transition to a p.o. antibiotic and be discharged tomorrow. We did put some Bactroban on the abdominal lesion. 2. History of pulmonary embolism. PLAN: Continue his Eliquis 5 mg twice a day. 3. History of Hodgkin's lymphoma, which is I believe remote and not currently under treatment.
[2019-07-19 13:59] VITALS: BP 119/61
[2019-07-19 22:00] VITALS: BP 114/61
[2019-07-20 06:00] VITALS: BP 125/73
[2019-07-20] MEDS: CLINDAMYCIN 600 MG in IV 1 EA IV SCH (06:00)
[2019-07-20 07:06] LABS: HEMATOCRIT 37.8 % (42.0-52.0); HEMOGLOBIN 12.8 g/dl (13.5-17.5); MEAN CORPUSCULAR HEMOGLOBIN 31.1 pg (27.0-33.0); MEAN CORPUSCULAR HGB CONC 33.9 g/dl (32.0-36.5); PLATELET COUNT, AUTOMATED 151 10^3/uL (150-450); RED BLOOD COUNT 4.11 10^6/uL (4.30-6.10); WHITE BLOOD COUNT 6.6 10^3/uL (4.0-10.0)
[2019-07-20 07:36] LABS: BLOOD UREA NITROGEN 7 MG/DL (7-18); CALCIUM LEVEL 8.2 MG/DL (8.5-10.1); CARBON DIOXIDE LEVEL 22 MEQ/L (21-32); CHLORIDE LEVEL 114 MEQ/L (98-107); CREATININE FOR GFR 0.78 MG/DL (0.70-1.30); GLOMERULAR FILTRATION RATE > 60.0 (>60); GLUCOSE, FASTING 101 MG/DL (70-100); POTASSIUM SERUM 3.9 MEQ/L (3.5-5.1); SODIUM LEVEL 143 MEQ/L (136-145)
[2019-07-20] MEDS: APIXABAN 5 MG TAB (ELIQUIS) PO SCH (08:15)
[2019-07-20] MEDS: NS 1,000 ML IV SCH (08:15)
[2019-07-20] MEDS: ACETAMINOPHEN 500 MG TAB PO PRN (08:24)
[2019-07-20] MEDS ORDERED: MUPI2OI TOP (11:13)
[2019-07-20] MEDS ORDERED: CLIN300C5 PO (11:13)
[2019-07-20] MEDS ORDERED: CLINDAMYCIN 150 MG CAP PO SCH (14:00)
[2019-07-20] MEDS: MUPIROCIN 2% OINT 22 GM TUBE TOP SCH (14:12)
--- NOTE | 2019-07-20 15:40 | DS.PDOC ---
Discharge Summary General Date of Admission Jul 17, 2019 at 23:17 Date of Discharge 07/20/2019 Attending Physician: ROMERO DUGAN MD Discharge Summary PROCEDURES PERFORMED DURING STAY: None ADMITTING DIAGNOSES: 1. Sepsis secondary to soft tissue infection with lip cellulitis DISCHARGE DIAGNOSES: 1. Sepsis secondary to soft tissue infection with lip cellulitis 2. History of Hodgkins lyphoma 3. History of PE on eliquis COMPLICATIONS/CHIEF COMPLAINT: Sepsis, Cellulitis. HISTORY OF PRESENT ILLNESS: 39 years old man with a history of remote Hodgkin lymphoma treated with chemotherapy, pulmonary emboli on eliquis who presented with lower lip swelling. HOSPITAL COURSE: On arrival he reporrted that he had an ingrowth hair underneath his lip that tried to remove 2 days prior and subsequently developed lower lip swelling and pain, and eventually developed fever and chills that prompted his ED presentation. In the ED, he was notably septic with a fever, tachycardia and leukocytosis. During his course, he had fluid sent from one of the bullous impetigo-like lesion sent and it grew MRSA and he was treated with IV clindamycin. On skin exam, he had another lesion on his abdomen that was also raised with surrounding erythema and both lesions improved drastically with IV clinda. The lip lesion eventually began to drain and he was advised to clean it with a warm cloth and apply mupirocin. Today, I switched him to oral clindamycin and am now discharging him home to follow up with his PCP. DISCHARGE MEDICATIONS: Please see below. ALLERGIES: Please see below. PHYSICAL EXAMINATION ON DISCHARGE: VITAL SIGNS: Please see below. GENERAL: NAD HEENT: NCAT, EOMI, swollen bottom lip with draining bullae, clear posterior oropharynx NECK: Has one painful reactive lymph node in the posterior cervical chain on the right side. CARDIOVASCULAR EXAMINATION: RRR, no mrg RESPIRATORY EXAMINATION: CTAB ABDOMINAL EXAMINATION: Normoactive bowel sounds, NTND EXTREMITIES: WWP, no LE edema SKIN: draining bullae around bottom lip, lesion in central abdomen, no drainage with minimal surrounding erythema NEUROLOGICAL EXAMINATION: Normal gait, grossly nonfocal PSYCHIATRIC EXAMINATION: AOx3 LABORATORY DATA: Reviewed. See below IMAGING: CT A/P 1. No acute abnormality identified. 2. Nonurgent findings similar to 01/08/19, including mild sigmoid colonic diverticulosis without evidence for diverticulitis, small fat containing umbilical hernia and hepatic steatosis. 3. Interval placement of IVC filter. CXR: NO acute cardiopulmonary pathology PROGNOSIS: Good ACTIVITY: As tolerated DIET: Regular DISCHARGE PLAN: Home DISPOSITION: 01 Home, Self-Care. DISCHARGE INSTRUCTIONS: 1. Please complete the clindamycin course and keep your lip and abdominal lesion clean and apply mupirocin after cleaning ITEMS TO FOLLOWUP ON ON OUTPATIENT: 1. MRSA cellulitis and bullous impetigo DISCHARGE CONDITION: Stable TIME SPENT ON DISCHARGE: 44 minutes. Vital Signs/I&Os Vital Signs Date Time Temp Pulse Resp B/P (MAP) Pulse Ox O2 Delivery O2 Flow Rate FiO2 07/20/19 06:00 97.1 56 18 125/73 (90) 97 Room Air I&O- Last 24 Hours up to 6 AM 07/20/19 06:00 Intake Total 3773 ml Balance 3773 ml Laboratory Data Labs 24H Laboratory Tests 2 07/20/19 06:41: Nucleated Red Blood Cells % (auto) 0.0, Anion Gap 7L, Glomerular Filtration Rate > 60.0, Calcium Level 8.2L CBC/BMP Laboratory Tests 07/20/19 06:41 Microbiology Microbiology 07/17/19 Blood Culture - Preliminary, Resulted No Growth after 48 hours. All Specime... 07/17/19 Blood Culture - Preliminary, Resulted No Growth after 48 hours. All Specime... 07/17/19 Wound Culture - Final, Complete Staph.aureus Methicillin Resis Discharge Medications Scheduled Apixaban (Eliquis) 5 Mg Tablet, 5 MG PO BID, (Reported) Clindamycin HCl (Clindamycin HCl) 300 Mg Capsule, 600 MG PO Q8H Gabapentin (Gabapentin) 300 Mg Capsule, 300 MG PO TID, (Reported) Mupirocin (Mupirocin) 22 Gm Oint...g., 0 DOSE TOP TID Scheduled PRN Acetaminophen (Tylenol Extra Strength) 500 Mg Tablet, 1,000 MG PO Q6H PRN for PAIN, (Reported) Albuterol Sulfate (Proair Hfa) 8.5 Gm Hfa.aer.ad, 2 PUFF INH Q6H PRN for SHORTNESS OF BREATH, (Reported) Nicotine Polacrilex (Nicotine Gum) 4 Mg Gum, 4 MG MT Q30MIN PRN for SMOKING CESSATION, (Reported) Allergies Coded Allergies: amoxicillin (Verified Adverse Reaction, Unknown, DIARRHEA, 06/14/19) tramadol (Verified Adverse Reaction, Unknown, FEEL LIKE IM GOING TO HAVE A SEIZURE, 06/14/19) ROMERO DUGAN MD Jul 20, 2019 15:40
== END 2019-07-20 15:05 | disposition home or self-care (01) | DRG 720 ==
LOC: M ED 14:37 → M ED INP 23:17 → EEVIPCON 23:17 → ENRESERV 23:26 → M MS5PR 07-18 00:30
PROVIDERS: ADMIT Internal Medicine; ATTEND Internal Medicine
DX: A41.9 Sepsis, unspecified organism (principal); L03.211 Cellulitis of face; D72.829 Elevated white blood cell count, unspecified; Z88.1 Allergy status to other antibiotic agents; Z79.01 Long term (current) use of anticoagulants; Z79.899 Other long term (current) drug therapy; Z87.891 Personal history of nicotine dependence; Z85.71 Personal history of Hodgkin lymphoma; Z86.711 Personal history of pulmonary embolism

== ENCOUNTER 2019-07-26 18:12 | Emergency (ER) | payer OTHER ==
[~2019-07-26] VITALS: Ht 182.9 cm; Wt 102.3 kg
[2019-07-26 18:13] VITALS: BP 132/81
[2019-07-26] MEDS ORDERED: MUPI2OI TOP (20:04)
[2019-07-26] MEDS: MUPIROCIN 2% OINT 22 GM TUBE TOP ONE (20:09)
== END 2019-07-26 20:17 | disposition home or self-care (01) ==
LOC: M ED 18:12
DX: Z76.0 Encounter for issue of repeat prescription (principal); L02.01 Cutaneous abscess of face; B95.62 Methicillin resistant Staphylococcus aureus infection as the cause of diseases classified elsewhere; I10 Essential (primary) hypertension; J45.909 Unspecified asthma, uncomplicated; F17.200 Nicotine dependence, unspecified, uncomplicated; Z85.79 Personal history of other malignant neoplasms of lymphoid, hematopoietic and related tissues; Z79.01 Long term (current) use of anticoagulants; Z79.899 Other long term (current) drug therapy; Z88.0 Allergy status to penicillin; Z88.5 Allergy status to narcotic agent

== ENCOUNTER → 2019-07-26 | Outpatient (CLI) | payer OTHER ==
[~2019-07-26] MED LIST changes: +ACET-683 PO; +ACET-897 PO; +CLIN300C5 PO; +MUPI2OI TOP; +PROAAER10 INH
[2019-07-26 11:48] LABS: HEPATITIS B SURFACE ANTIBODY NEGATIVE (POSITIVE); HEPATITIS B SURFACE ANTIGEN NEGATIVE (NEGATIVE)
== END ==
LOC: M LAB 09:28
PROVIDERS: ATTEND Physician Assistant Medical
DX: B18.2 Chronic viral hepatitis C (principal); B16.9 Acute hepatitis B without delta-agent and without hepatic coma; B15.9 Hepatitis A without hepatic coma

== ENCOUNTER → 2019-10-30 | Outpatient (CLI) | payer OTHER ==
[~2019-10-30] MED LIST changes: +GABA600T4
[2019-10-30 11:12] LABS: BASO # 0.1 10^3/uL (0.0-0.2); BASO % 1.2 % (0.0-1.0); EOS # 0.3 10^3/uL (0.0-0.5); HEMATOCRIT 41.5 % (42.0-52.0); HEMOGLOBIN 13.7 g/dl (13.5-17.5); LYMPH # 1.6 10^3/uL (1.5-5.0); LYMPH % 27.7 % (24.0-44.0); MEAN CORPUSCULAR HEMOGLOBIN 30.6 pg (27.0-33.0); MEAN CORPUSCULAR VOLUME 92.6 fl (80.0-96.0); MONO # 0.5 10^3/uL (0.0-0.8); MONO % 8.7 % (0.0-5.0); NEUTROPHILS # 3.3 10^3/uL (1.5-8.5); NEUTROPHILS % 56.9 % (36.0-66.0); PLATELET COUNT, AUTOMATED 166 10^3/uL (150-450); RED BLOOD COUNT 4.48 10^6/uL (4.30-6.10); WHITE BLOOD COUNT 5.8 10^3/uL (4.0-10.0)
[2019-10-30 12:10] LABS: ALBUMIN 3.8 GM/DL (3.2-5.2); ALT/SGPT 76 U/L (12-78); BILIRUBIN,TOTAL 0.6 MG/DL (0.2-1.0); BLOOD UREA NITROGEN 10 MG/DL (7-18); CALCIUM LEVEL 8.7 MG/DL (8.5-10.1); CARBON DIOXIDE LEVEL 29 MEQ/L (21-32); CHLORIDE LEVEL 110 MEQ/L (98-107); CREATININE FOR GFR 1.03 MG/DL (0.70-1.30); GLOMERULAR FILTRATION RATE > 60.0 (>60); GLUCOSE, FASTING 88 MG/DL (70-100); LDH LACTATE DEHYDROGENASE 205 U/L (87-241); POTASSIUM SERUM 4.3 MEQ/L (3.5-5.1); SODIUM LEVEL 141 MEQ/L (136-145); TOTAL PROTEIN 7.1 GM/DL (6.4-8.2)
[2019-11-01 11:07] LABS: BETA-2 GLYCOPROTEIN I ABY IGA <9 (0-25); BETA-2 GLYCOPROTEIN I ABY IGG <9 (0-20); BETA-2 GLYCOPROTEIN I ABY IGM <9 (0-32); CARDIOLIPIN IGA ANTIBODY <9 APL U/mL (0-11); CARDIOLIPIN IGG ANTIBODY <9 GPL U/mL (0-14); CARDIOLIPIN IGM ANTIBODY <9 MPL U/mL (0-12)
== END ==
LOC: M LAB 10:20
PROVIDERS: ATTEND Nurse Practitioner Family
DX: C81.21 Mixed cellularity Hodgkin lymphoma, lymph nodes of head, face, and neck (principal); I26.99 Other pulmonary embolism without acute cor pulmonale

== ENCOUNTER 2019-11-04 11:45 | Emergency (ER) | payer OTHER ==
[~2019-11-04] VITALS: Ht 182.9 cm; Wt 95.9 kg
[~2019-11-04 11:45] MED LIST changes: -GABA600T4
[2019-11-04] MEDS ORDERED: GABA600T4 (11:52)
[2019-11-04 13:00] LABS: BASO # 0.1 10^3/uL (0.0-0.2); BASO % 0.9 % (0.0-1.0); EOS # 0.3 10^3/uL (0.0-0.5); EOS % 4.6 % (0.0-3.0); HEMATOCRIT 40.8 % (42.0-52.0); HEMOGLOBIN 13.2 g/dl (13.5-17.5); LYMPH # 1.6 10^3/uL (1.5-5.0); LYMPH % 24.5 % (24.0-44.0); MEAN CORPUSCULAR HEMOGLOBIN 30.6 pg (27.0-33.0); MEAN CORPUSCULAR HGB CONC 32.4 g/dl (32.0-36.5); MEAN CORPUSCULAR VOLUME 94.4 fl (80.0-96.0); MONO # 0.6 10^3/uL (0.0-0.8); NEUTROPHILS # 3.9 10^3/uL (1.5-8.5); NEUTROPHILS % 59.9 % (36.0-66.0); PLATELET COUNT, AUTOMATED 152 10^3/uL (150-450); RED BLOOD COUNT 4.32 10^6/uL (4.30-6.10); WHITE BLOOD COUNT 6.5 10^3/uL (4.0-10.0)
[2019-11-04] MEDS ORDERED: ISOVUE-370 76% 100ML VIAL As Ordered ONE (13:29)
--- NOTE | 2019-11-04 13:48 | REPVR ---
PROCEDURE INFORMATION: Exam: CT Neck With Contrast Exam date and time: 11/04/2019 1:40 PM Age: 39 years old Clinical indication: Enlarged lymph nodes; Additional info: Swollen, tender lymph node with HX of hodgkins lymphoma TECHNIQUE: Imaging protocol: Computed tomography images of the neck with intravenous contrast. Radiation optimization: All CT scans at this facility use at least one of these dose optimization techniques: automated exposure control; mA and/or kV adjustment per patient size (includes targeted exams where dose is matched to clinical indication); or iterative reconstruction. Contrast material: ISOVUE 370; Contrast volume: 75 ml; Contrast route: IV; COMPARISON: CT Neck with contrast 06/14/2019 12:54 PM FINDINGS: Nasopharynx: Unremarkable. Oropharynx: Unremarkable. No significant tonsillar enlargement. Hypopharynx: Unremarkable. Larynx: Unremarkable. Normal epiglottis. Retropharyngeal space: Unremarkable. Submandibular/Parotid glands: Normal. Glands are normal in size. Thyroid: Normal. No enlarged or calcified nodules. Lymph nodes: Multiple small non-specific bilateral cervical chain lymph nodes are present. Trachea: Visualized trachea is unremarkable. Lungs: Unremarkable as visualized. Bones/joints: Mild degenerative changes of the cervical spine are present. Soft tissues: Unremarkable. No significant soft tissue swelling. Other findings: A right internal jugular Port-A-Cath is noted. IMPRESSION: Multiple small non-specific bilateral cervical chain lymph nodes. These do not meet size criteria for pathology. Electronically signed by: Alex Roca On 11/04/2019 13:48:30 PM
[2019-11-04 14:16] VITALS: BP 134/82
== END 2019-11-04 14:19 | disposition home or self-care (01) ==
LOC: M ED 11:45
DX: R22.1 Localized swelling, mass and lump, neck (principal); Z85.72 Personal history of non-Hodgkin lymphomas; B19.20 Unspecified viral hepatitis C without hepatic coma; I10 Essential (primary) hypertension; J45.909 Unspecified asthma, uncomplicated; G47.30 Sleep apnea, unspecified; F32.9 Major depressive disorder, single episode, unspecified; Z86.14 Personal history of Methicillin resistant Staphylococcus aureus infection; Z92.21 Personal history of antineoplastic chemotherapy; Z88.1 Allergy status to other antibiotic agents; Z88.5 Allergy status to narcotic agent; Z79.899 Other long term (current) drug therapy
CPT/HCPCS: 70491; 80047; 85025; 99284; Q9967

== ENCOUNTER 2020-01-30 07:07 | Emergency (ER) | payer OTHER ==
[~2020-01-30] VITALS: Ht 182.9 cm; Wt 102.3 kg
[~2020-01-30 07:07] MED LIST changes: +GABA600T4
[2020-01-30] MEDS ORDERED: GABA-843 (07:21)
[2020-01-30 07:58] LABS: HEMATOCRIT 37.5 % (42.0-52.0); HEMOGLOBIN 13.1 g/dl (13.5-17.5); MEAN CORPUSCULAR HGB CONC 34.9 g/dl (32.0-36.5); MEAN CORPUSCULAR VOLUME 91.7 fl (80.0-96.0); PLATELET COUNT, AUTOMATED 210 10^3/uL (150-450); RED BLOOD COUNT 4.09 10^6/uL (4.30-6.10); WHITE BLOOD COUNT 10.1 10^3/uL (4.0-10.0)
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
[2020-01-30 09:20] LABS: APPEARANCE, URINE CLEAR (CLEAR); BACTERIA, URINE AUTO NEGATIVE (NEGATIVE); BILIRUBIN, URINE AUTO NEGATIVE (NEGATIVE); BLOOD, URINE BLOOD NEGATIVE (NEGATIVE); COLOR, URINE YELLOW (YELLOW); GLUCOSE, URINE (UA) AUTO NEGATIVE (NEGATIVE); KETONE, URINE AUTO NEGATIVE (NEGATIVE); LEUKOCYTE ESTERASE, URINE AUTO NEGATIVE (NEGATIVE); MUCUS, URINE SMALL (NEGATIVE); NITRITE, URINE AUTO NEGATIVE (NEGATIVE); PROTEIN, URINE AUTO 1+ mg/dL (NEGATIVE); RBC, URINE AUTO 2 /HPF (0-3); SPECIFIC GRAVITY URINE AUTO 1.018 (1.002-1.035); SQUAMOUS EPITHELIAL CELL UR AU 0 /HPF (0-6); UROBILINOGEN, URINE AUTO 0.2 mg/dL (0.0-2.0); WBC, URINE AUTO 0 /HPF (0-3)
[2020-01-30 10:16] VITALS: BP 149/82
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
== END 2020-01-30 10:21 | disposition home or self-care (01) ==
LOC: EDBD 07:07 → M ED 07:07
DX: S01.81XA Laceration without foreign body of other part of head, initial encounter (principal); S62.91XA Unspecified fracture of right hand, initial encounter for closed fracture; S42.401A Unspecified fracture of lower end of right humerus, initial encounter for closed fracture; M25.721 Osteophyte, right elbow; Y04.8XXA Assault by other bodily force, initial encounter; Y92.410 Unspecified street and highway as the place of occurrence of the external cause; Y93.9 Activity, unspecified; Y99.9 Unspecified external cause status; F17.200 Nicotine dependence, unspecified, uncomplicated; Z79.01 Long term (current) use of anticoagulants; Z79.899 Other long term (current) drug therapy; Z88.0 Allergy status to penicillin; Z88.5 Allergy status to narcotic agent
CPT/HCPCS: 70450; 71101; 72125; 73090; 73110; 73200; 80047; 81001; 85027; 99284; G0480

== ENCOUNTER 2020-06-26 17:26 | Inpatient (IN) | payer OTHER ==
[~2020-06-26] VITALS: Ht 182.9 cm; Wt 84.2 kg
[2020-06-26] MEDS: GABAPENTIN 300 MG CAP PO SCH (00:41)
[2020-06-26] MEDS: APIXABAN 5 MG TAB (ELIQUIS) PO SCH (00:41)
[2020-06-26] MEDS: THIAMINE 100 MG TAB PO SCH (00:41)
[~2020-06-26 17:26] MED LIST changes: -CLIN300C5 PO; +CLIN300C6 PO; +GABA-282 PO; -GABA-843 PO
[2020-06-26] MEDS ORDERED: LORazepam 2 MG/ML VIAL IV STA (17:35)
[2020-06-26 17:54] LABS: BASO # 0.1 10^3/uL (0.0-0.2); EOS # 0.4 10^3/uL (0.0-0.5); EOS % 5.2 % (0.0-3.0); HEMATOCRIT 41.1 % (42.0-52.0); HEMOGLOBIN 13.4 g/dl (13.5-17.5); LYMPH # 1.6 10^3/uL (1.5-5.0); LYMPH % 19.9 % (24.0-44.0); MEAN CORPUSCULAR HEMOGLOBIN 30.3 pg (27.0-33.0); MEAN CORPUSCULAR HGB CONC 32.6 g/dl (32.0-36.5); MONO # 0.7 10^3/uL (0.0-0.8); NEUTROPHILS # 5.4 10^3/uL (1.5-8.5); NEUTROPHILS % 65.4 % (36.0-66.0); PLATELET COUNT, AUTOMATED 264 10^3/uL (150-450); RED BLOOD COUNT 4.42 10^6/uL (4.30-6.10); WHITE BLOOD COUNT 8.3 10^3/uL (4.0-10.0)
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
[2020-06-26 18:30] LABS: OSMOLALITY SERUM 293 MOSM/KG (275-295)
[2020-06-26 18:36] LABS: ACETAMINOPHEN LEVEL < 2.0 UG/ML (10.0-30.0); ALBUMIN 3.9 GM/DL (3.2-5.2); ALT/SGPT 102 U/L (12-78); BILIRUBIN,DIRECT 0.2 MG/DL (0.0-0.2); BILIRUBIN,TOTAL 0.3 MG/DL (0.2-1.0); BLOOD UREA NITROGEN 20 MG/DL (7-18); CALCIUM LEVEL 8.9 MG/DL (8.5-10.1); CARBON DIOXIDE LEVEL 22 MEQ/L (21-32); CHLORIDE LEVEL 107 MEQ/L (98-107); CK-MB VALUE MASS 12.4 NG/ML (<3.6); CPK CREATINE PHOSPHOKINASE 718 U/L (39-308); CREATININE FOR GFR 1.73 MG/DL (0.70-1.30); ETHYL ALCOHOL (ETHANOL) < 0.003 % (0.000-0.010); GLOMERULAR FILTRATION RATE 46.3 (>60); GLUCOSE, FASTING 93 MG/DL (70-100); MB/CK RELATIVE INDEX 1.73 (< OR =4); POTASSIUM SERUM 4.5 MEQ/L (3.5-5.1); SALICYLATE LEVEL < 1.7 MG/DL (5.0-30.0); SODIUM LEVEL 141 MEQ/L (136-145); TOTAL PROTEIN 7.6 GM/DL (6.4-8.2); TROPONIN I 0.03 NG/ML (< 0.10)
[2020-06-26] MEDS ORDERED: NS 1,000 ML IV ONE ×4 (18:45→20:00)
[2020-06-26] MEDS ORDERED: GABA600T4 PO (20:24)
[2020-06-26 20:49] LABS: APPEARANCE, URINE CLEAR (CLEAR); BACTERIA, URINE AUTO NEGATIVE (NEGATIVE); BILIRUBIN, URINE AUTO NEGATIVE (NEGATIVE); BLOOD, URINE BLOOD NEGATIVE (NEGATIVE); COLOR, URINE YELLOW (YELLOW); GLUCOSE, URINE (UA) AUTO NEGATIVE (NEGATIVE); KETONE, URINE AUTO NEGATIVE (NEGATIVE); LEUKOCYTE ESTERASE, URINE AUTO NEGATIVE (NEGATIVE); NITRITE, URINE AUTO NEGATIVE (NEGATIVE); PROTEIN, URINE AUTO 2+ mg/dL (NEGATIVE); RBC, URINE AUTO 5 /HPF (0-3); SPECIFIC GRAVITY URINE AUTO 1.016 (1.002-1.035); SQUAMOUS EPITHELIAL CELL UR AU 0 /HPF (0-6); UROBILINOGEN, URINE AUTO 0.2 mg/dL (0.0-2.0); WBC, URINE AUTO 10 /HPF (0-3)
[2020-06-26] MEDS ORDERED: diphenhydrAMINE 50MG/ML VIAL (J1200) IV PRN (21:00)
--- NOTE | 2020-06-26 21:12 | REPVR ---
PROCEDURE INFORMATION: Exam: US Retroperitoneal Limited, Kidneys Exam date and time: 06/26/2020 8:57 PM Age: 40 years old Clinical indication: Abnormal findings; Abnormal lab test; Abnormal kidney function lab tests; Additional info: Jose Cruz TECHNIQUE: Imaging protocol: Real-time ultrasound of the retroperitoneum with image documentation. Examination was focused on the kidneys. COMPARISON: CT ABD/PEL W/IV CONTRAST ONLY 07/17/2019 8:58 PM FINDINGS: Limitations: This examination is suboptimal given the patient's inability to follow directions. Right kidney: The right kidney is normal in size measuring 11.1 cm in length. Right renal parenchyma is mildly echogenic which may be seen with medical renal disease. No right renal stone, focal renal lesion or hydronephrosis is identified. Left kidney: The left kidney is normal in size measuring 12.4 cm in length. The left renal echogenicity is normal. No left renal stone, focal renal lesion or hydronephrosis is identified. Bladder: Th there is generalized wall thickening of the urinary bladder which is likely secondary to a nearly completely emptied urinary bladder. IMPRESSION: 1. Mild increased echogenicity of the right renal parenchyma which may be seen with medical renal disease. 2. No hydronephrosis. Electronically signed by: Michael Ward On 06/26/2020 21:11:54 PM
[2020-06-26 21:14] LABS: POTASSIUM RANDOM URINE 25.2 MEQ/L
--- NOTE | 2020-06-26 21:14 | ECGEPIP ---
[facility] - ED Test Date: 2020-06-26 Pat Name: ZORAIDA NAVAS Department: Room: - Gender: Male Penetration Tester: joselin : 1980 Requested By: Basia Arango Order Number: [id number] Reading MD: Basia Arango Measurements Intervals [place] Rate: 60 P: 65 SC: 189 QRS: 75 QRSD: 91 T: 196 QT: 469 QTc: 472 Interpretive Statements SINUS RHYTHM WITH SINUS ARRHYTHMIA MODERATE T-WAVE ABNORMALITY, CONSIDER ANTEROLATERAL ISCHEMIA, CLINICAL CORRELATION COMPARED 07/17/19 Electronically Signed on 06-26-2020 21:14:00 EST by Basia Arango
[2020-06-26 21:23] LABS: AMPHETAMINES LEVEL URINE POSITIVE (NEGATIVE); BARBITURATES URINE NEGATIVE (NEGATIVE); BENZODIAZEPINES URINE NEGATIVE (NEGATIVE); CANNABINOIDS URINE POSITIVE (NEGATIVE); COCAINE METABOLITE URINE NEGATIVE (NEGATIVE); METHADONE URINE NEGATIVE (NEGATIVE); OPIATES URINE NEGATIVE (NEGATIVE); PHENCYCLIDINE URINE NEGATIVE (NEGATIVE)
[2020-06-26 21:23] LABS: VENOUS BASE EXCESS -5.5 (-2.0-2.0); VENOUS HCO3 21.9 MEQ/L (23.0-27.0); VENOUS O2 SATURATION 78.6 % (60.0-80.0); VENOUS PARTIAL PRESSURE O2 50.3 mmHg (30.0-50.0); VENOUS PH 7.259 UNITS (7.330-7.430); VENOUS STANDARD HCO3 19.6 MEQ/L; VENOUS TOTAL CO2 23.4 MEQ/L (24.0-28.0)
[2020-06-26] MEDS ORDERED: LORazepam 2 MG TAB PO PRN (22:00)
--- NOTE | 2020-06-26 23:15 | IPNPDOC ---
Text Note Date of Service The patient was seen on 06/26/20. VS,Yomaira, I+O VS, [place], I+O Laboratory Tests 06/26/20 17:43 Vital Signs Date Time Temp Pulse Resp B/P (MAP) Pulse Ox O2 Delivery O2 Flow Rate FiO2 06/26/20 17:31 97.5 06/26/20 17:29 99 20 169/109 97 Room Air IRMA DICKSON MD Jun 26, 2020 23:15
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
[2020-06-27] VITALS (7 sets, daily range): BP systolic 106–129; BP diastolic 51–79
[2020-06-27] MEDS: NS 1,000 ML IV SCH ×4 (03:58→20:55)
[2020-06-27 07:21] LABS: HEMATOCRIT 35.1 % (42.0-52.0); HEMOGLOBIN 11.5 g/dl (13.5-17.5); MEAN CORPUSCULAR HEMOGLOBIN 30.4 pg (27.0-33.0); MEAN CORPUSCULAR HGB CONC 32.8 g/dl (32.0-36.5); MEAN CORPUSCULAR VOLUME 92.9 fl (80.0-96.0); PLATELET COUNT, AUTOMATED 172 10^3/uL (150-450); RED BLOOD COUNT 3.78 10^6/uL (4.30-6.10); WHITE BLOOD COUNT 5.4 10^3/uL (4.0-10.0)
[2020-06-27 07:50] LABS: ALBUMIN 2.8 GM/DL (3.2-5.2); ALT/SGPT 99 U/L (12-78); BILIRUBIN,TOTAL 0.5 MG/DL (0.2-1.0); BLOOD UREA NITROGEN 14 MG/DL (7-18); CALCIUM LEVEL 7.8 MG/DL (8.5-10.1); CARBON DIOXIDE LEVEL 22 MEQ/L (21-32); CHLORIDE LEVEL 112 MEQ/L (98-107); GLOMERULAR FILTRATION RATE > 60.0 (>60); GLUCOSE, FASTING 78 MG/DL (70-100); POTASSIUM SERUM 3.9 MEQ/L (3.5-5.1); SODIUM LEVEL 143 MEQ/L (136-145); TOTAL PROTEIN 5.6 GM/DL (6.4-8.2)
[2020-06-27 08:46] LABS: CPK CREATINE PHOSPHOKINASE 342 U/L (39-308)
[2020-06-27] MEDS ORDERED: GABAPENTIN 300 MG CAP PO SCH (09:00)
[2020-06-27] MEDS: GABAPENTIN 300 MG CAP PO SCH ×3 (09:21→21:06)
[2020-06-27] MEDS: FOLIC ACID 1 MG TAB PO SCH (09:21)
[2020-06-27] MEDS: MULTIVITAMINS/MINERALS THERAP 1 TAB PO SCH (09:21)
[2020-06-27] MEDS: APIXABAN 5 MG TAB (ELIQUIS) PO SCH ×2 (09:21→21:06)
[2020-06-27] MEDS: THIAMINE 100 MG TAB PO SCH ×2 (09:21→21:06)
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
[2020-06-27 13:22] LABS: CK-MB VALUE MASS 6.4 NG/ML (<3.6); CPK CREATINE PHOSPHOKINASE 255 U/L (39-308); MB/CK RELATIVE INDEX 2.51 (< OR =4); TROPONIN I < 0.02 NG/ML (< 0.10)
--- NOTE | 2020-06-27 14:46 | ECGEPIP ---
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
[2020-06-28 06:00] VITALS: BP 112/61
[2020-06-28] MEDS: NS 1,000 ML IV SCH (06:11)
[2020-06-28 08:21] LABS: HEMATOCRIT 36.1 % (42.0-52.0); HEMOGLOBIN 12.1 g/dl (13.5-17.5); MEAN CORPUSCULAR HEMOGLOBIN 30.9 pg (27.0-33.0); MEAN CORPUSCULAR HGB CONC 33.5 g/dl (32.0-36.5); MEAN CORPUSCULAR VOLUME 92.1 fl (80.0-96.0); PLATELET COUNT, AUTOMATED 163 10^3/uL (150-450); RED BLOOD COUNT 3.92 10^6/uL (4.30-6.10); WHITE BLOOD COUNT 5.4 10^3/uL (4.0-10.0)
[2020-06-28] MEDS: MULTIVITAMINS/MINERALS THERAP 1 TAB PO SCH (08:45)
[2020-06-28] MEDS: APIXABAN 5 MG TAB (ELIQUIS) PO SCH (08:45)
[2020-06-28] MEDS: THIAMINE 100 MG TAB PO SCH (08:45)
[2020-06-28] MEDS: FOLIC ACID 1 MG TAB PO SCH (08:45)
[2020-06-28] MEDS: GABAPENTIN 300 MG CAP PO SCH (08:46)
[2020-06-28 08:56] LABS: ALBUMIN 2.7 GM/DL (3.2-5.2); ALT/SGPT 130 U/L (12-78); BILIRUBIN,TOTAL 0.3 MG/DL (0.2-1.0); BLOOD UREA NITROGEN 11 MG/DL (7-18); CALCIUM LEVEL 7.9 MG/DL (8.5-10.1); CARBON DIOXIDE LEVEL 23 MEQ/L (21-32); CHLORIDE LEVEL 111 MEQ/L (98-107); CREATININE FOR GFR 0.92 MG/DL (0.70-1.30); GLOMERULAR FILTRATION RATE > 60.0 (>60); GLUCOSE, FASTING 105 MG/DL (70-100); POTASSIUM SERUM 4.2 MEQ/L (3.5-5.1); SODIUM LEVEL 143 MEQ/L (136-145); TOTAL PROTEIN 5.7 GM/DL (6.4-8.2)
[2020-06-28] MEDS ORDERED: INFLUENZA QUADRIVALENT PF VACCINE 0.5ML SYRINGE IM ONE (09:00)
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
[2020-06-29 10:58] LABS: HEPATITIS B SURFACE ANTIGEN NEGATIVE (NEGATIVE)
[2020-06-29 11:26] LABS: HEPATITIS B CORE ANTIBODY IGM NEGATIVE (NEGATIVE)
[2020-06-29 11:28] LABS: HEPATITIS A ANTIBODY IGM NEGATIVE (NEGATIVE)
[2020-06-29 11:29] LABS: HEPATITIS C VIRUS ABY INDEX > 11.0 INDEX (<0.8)
[2020-06-30 13:12] LABS: HEPATITIS C QUANTITATION 1609830 IU/mL (.)
== END 2020-06-28 12:30 | disposition home or self-care (01) | DRG 775 ==
LOC: M ED 17:26 → M ED INP 20:03 → M MSPAV 06-27 03:34
PROVIDERS: ADMIT Internal Medicine; ATTEND Internal Medicine
DX: F15.13 Other stimulant abuse with withdrawal (principal); N17.9 Acute kidney failure, unspecified; F10.10 Alcohol abuse, uncomplicated; M62.82 Rhabdomyolysis; Z79.01 Long term (current) use of anticoagulants; Z86.711 Personal history of pulmonary embolism; I49.9 Cardiac arrhythmia, unspecified; G89.29 Other chronic pain; Z79.899 Other long term (current) drug therapy; Z88.0 Allergy status to penicillin; Z88.8 Allergy status to other drugs, medicaments and biological substances; Z87.891 Personal history of nicotine dependence

== ENCOUNTER 2020-08-11 11:28 | Emergency (ER) | payer OTHER ==
[~2020-08-11] VITALS: Ht 182.9 cm; Wt 83.0 kg
[~2020-08-11 11:28] MED LIST changes: +GABA600T4 PO
[2020-08-11] MEDS ORDERED: CEPHALEXIN 500 MG CAP PO ONE (12:20)
[2020-08-11] MEDS ORDERED: ACETAMINOPHEN 325 MG TAB PO ONE (12:20)
--- NOTE | 2020-08-11 12:29 | REP ---
INDICATION: head trauma; blood thinners COMPARISON: 06/26/2020 TECHNIQUE: Axial noncontrast images from the skull base to the vertex with coronal reformations. This CT examination was performed using the following dose reduction techniques: Automated exposure control, adjustment of mA and/or kv according to the patient's size, and use of iterative reconstruction technique. FINDINGS: The ventricles, sulci, and cisterns are normal in position and appearance. Wetzel-white differentiation is maintained. No acute intracranial hemorrhage, mass/mass effect, pathology or trauma/injury. No evidence for acute infarction. No extra-axial fluid collection. Calvarium is intact. Paranasal sinuses and mastoid air cells are clear. IMPRESSION: Normal noncontrast head CT. No evidence for acute intracranial pathology or trauma/injury. <Electronically signed by Austin Benson > 08/11/20 [id number]
[2020-08-11] MEDS ORDERED: CEPH500C PO (12:48)
[2020-08-11 13:00] VITALS: BP 104/33
== END 2020-08-11 13:01 | disposition home or self-care (01) ==
LOC: M ED 11:28
DX: J02.0 Streptococcal pharyngitis (principal); S09.90XA Unspecified injury of head, initial encounter; W22.8XXA Striking against or struck by other objects, initial encounter; Y92.9 Unspecified place or not applicable; Y93.9 Activity, unspecified; Y99.9 Unspecified external cause status; F15.10 Other stimulant abuse, uncomplicated; Z86.711 Personal history of pulmonary embolism; Z79.01 Long term (current) use of anticoagulants; Z79.899 Other long term (current) drug therapy; Z88.0 Allergy status to penicillin; Z88.5 Allergy status to narcotic agent

== ENCOUNTER 2020-08-24 22:48 | Emergency (ER) | payer OTHER ==
[~2020-08-24] VITALS: Ht 185.4 cm; Wt 90.9 kg
[~2020-08-24 22:48] MED LIST changes: +CEPH500C PO
[2020-08-24 23:24] LABS: HEMATOCRIT 39.4 % (42.0-52.0); MEAN CORPUSCULAR HEMOGLOBIN 30.4 pg (27.0-33.0); MEAN CORPUSCULAR VOLUME 92.3 fl (80.0-96.0); PLATELET COUNT, AUTOMATED 237 10^3/uL (150-450); RED BLOOD COUNT 4.27 10^6/uL (4.30-6.10); WHITE BLOOD COUNT 8.3 10^3/uL (4.0-10.0)
[2020-08-25 00:07] LABS: ACETAMINOPHEN LEVEL < 2.0 UG/ML (10.0-30.0); ALBUMIN 3.7 GM/DL (3.2-5.2); ALT/SGPT 53 U/L (12-78); AMPHETAMINES LEVEL URINE POSITIVE (NEGATIVE); BARBITURATES URINE NEGATIVE (NEGATIVE); BENZODIAZEPINES URINE NEGATIVE (NEGATIVE); BILIRUBIN,DIRECT 0.2 MG/DL (0.0-0.2); BILIRUBIN,TOTAL 0.5 MG/DL (0.2-1.0); BLOOD UREA NITROGEN 16 MG/DL (7-18); CALCIUM LEVEL 8.4 MG/DL (8.5-10.1); CANNABINOIDS URINE NEGATIVE (NEGATIVE); CARBON DIOXIDE LEVEL 24 MEQ/L (21-32); CHLORIDE LEVEL 112 MEQ/L (98-107); COCAINE METABOLITE URINE NEGATIVE (NEGATIVE); CREATININE FOR GFR 1.17 MG/DL (0.70-1.30); ETHYL ALCOHOL (ETHANOL) < 0.003 % (0.000-0.010); GLOMERULAR FILTRATION RATE > 60.0 (>60); GLUCOSE, FASTING 98 MG/DL (70-100); METHADONE URINE NEGATIVE (NEGATIVE); OPIATES URINE POSITIVE (NEGATIVE); PHENCYCLIDINE URINE NEGATIVE (NEGATIVE); POTASSIUM SERUM 3.9 MEQ/L (3.5-5.1); SALICYLATE LEVEL < 1.7 MG/DL (5.0-30.0); SODIUM LEVEL 142 MEQ/L (136-145); TOTAL PROTEIN 7.6 GM/DL (6.4-8.2)
[2020-08-25] MEDS ORDERED: LORazepam 2 MG TAB PO ONE (01:20)
--- NOTE | 2020-08-25 03:03 | REPVR ---
PROCEDURE INFORMATION: Exam: CT Head Without Contrast Exam date and time: 08/25/2020 2:16 AM Age: 40 years old Clinical indication: Altered mental status/memory loss; Confusion or disorientation; Additional info: Psychosis, HX of lymphoma TECHNIQUE: Imaging protocol: Computed tomography of the head without contrast. Radiation optimization: All CT scans at this facility use at least one of these dose optimization techniques: automated exposure control; mA and/or kV adjustment per patient size (includes targeted exams where dose is matched to clinical indication); or iterative reconstruction. COMPARISON: CT Head without contrast 08/11/2020 12:18 PM FINDINGS: Brain: Normal. No hemorrhage. Unremarkable white matter. No mass effect. Cerebral ventricles: No ventriculomegaly. Bones/joints: Unremarkable. No acute fracture. Paranasal sinuses: Visualized sinuses are unremarkable. No fluid levels. Mastoid air cells: Visualized mastoid air cells are well aerated. Soft tissues: Unremarkable. IMPRESSION: Negative noncontrast head CT without change from 08/11/2020. Electronically signed by: Eloy Robles On 08/25/2020 03:03:33 AM
[2020-08-25 12:00] VITALS: BP 101/54
== END 2020-08-25 12:02 | disposition home or self-care (01) ==
LOC: M ED 22:48
DX: F19.129 Other psychoactive substance abuse with intoxication, unspecified (principal); Z85.71 Personal history of Hodgkin lymphoma; F17.200 Nicotine dependence, unspecified, uncomplicated; Z79.01 Long term (current) use of anticoagulants; Z79.899 Other long term (current) drug therapy; Z88.0 Allergy status to penicillin; Z88.5 Allergy status to narcotic agent

== ENCOUNTER 2020-09-16 13:57 | Emergency (ER) | payer OTHER ==
[~2020-09-16] VITALS: Ht 182.9 cm; Wt 76.2 kg
[2020-09-16] MEDS ORDERED: CLAR10CA3 PO (14:04)
[2020-09-16 14:13] VITALS: BP 157/74
--- NOTE | 2020-09-18 19:35 | ECGEPIP ---
[facility] - ED Test Date: 2020-09-16 Pat Name: ZORAIDA NAVAS Department: Room: - Gender: Male Doctor Of Nurse Anesthesia Practice: [facility] : 1980 Requested By: PARI Marinelli Order Number: [id number] Reading MD: Basia Arango Measurements Intervals [place] Rate: 75 P: 53 [place]: 192 QRS: 59 QRSD: 94 T: 109 QT: 432 QTc: 482 Interpretive Statements Normal sinus rhythm Prolonged QT NSTTW abnormalities qtc shorter/less pronounced st abnormality compared 06/27/20 Electronically Signed on 09-18-2020 19:34:42 EDT by Basia Arango
== END 2020-09-16 14:43 | disposition home or self-care (01) ==
LOC: EDBD 13:57 → M ED 13:57
DX: T40.601A Poisoning by unspecified narcotics, accidental (unintentional), initial encounter (principal); Y92.9 Unspecified place or not applicable; Y93.9 Activity, unspecified; Z85.71 Personal history of Hodgkin lymphoma; Z86.711 Personal history of pulmonary embolism; Z86.19 Personal history of other infectious and parasitic diseases; F17.200 Nicotine dependence, unspecified, uncomplicated; F19.10 Other psychoactive substance abuse, uncomplicated; Z79.899 Other long term (current) drug therapy; Z88.0 Allergy status to penicillin; Z88.5 Allergy status to narcotic agent

== ENCOUNTER 2020-11-26 04:16 | Emergency (ER) | payer OTHER ==
[~2020-11-26 04:16] MED LIST changes: -DOXY100C37 PO; +DOXY1CAP62 PO
[2020-11-26 04:50] LABS: BASO % 0.5 % (0.0-1.0); EOS % 0.7 % (0.0-3.0); HEMATOCRIT 35.1 % (42.0-52.0); HEMOGLOBIN 11.7 g/dl (13.5-17.5); LYMPH # 0.9 10^3/uL (1.5-5.0); LYMPH % 14.9 % (24.0-44.0); MEAN CORPUSCULAR HEMOGLOBIN 29.8 pg (27.0-33.0); MEAN CORPUSCULAR HGB CONC 33.3 g/dl (32.0-36.5); MEAN CORPUSCULAR VOLUME 89.3 fl (80.0-96.0); MONO # 0.7 10^3/uL (0.0-0.8); MONO % 11.8 % (2.0-8.0); NEUTROPHILS # 4.4 10^3/uL (1.5-8.5); NEUTROPHILS % 71.8 % (36.0-66.0); PLATELET COUNT, AUTOMATED 160 10^3/uL (150-450); RED BLOOD COUNT 3.93 10^6/uL (4.30-6.10); WHITE BLOOD COUNT 6.1 10^3/uL (4.0-10.0)
[2020-11-26 05:07] LABS: ERYTHROCYTE SEDIMENTATION RATE 18 mm/hr (0-15)
[2020-11-26 05:22] LABS: ALBUMIN 3.1 GM/DL (3.2-5.2); ALT/SGPT 58 U/L (12-78); BILIRUBIN,TOTAL 0.5 MG/DL (0.2-1.0); BLOOD UREA NITROGEN 13 MG/DL (7-18); C REACTIVE PROTEIN QUANTITATIV 4.11 MG/DL (0.00-0.30); CALCIUM LEVEL 7.8 MG/DL (8.5-10.1); CARBON DIOXIDE LEVEL 24 MEQ/L (21-32); CHLORIDE LEVEL 99 MEQ/L (98-107); CREATININE FOR GFR 0.87 MG/DL (0.70-1.30); GLOMERULAR FILTRATION RATE > 60.0 (>60); GLUCOSE, FASTING 109 MG/DL (70-100); LDH LACTATE DEHYDROGENASE 199 U/L (87-241); POTASSIUM SERUM 3.8 MEQ/L (3.5-5.1); SODIUM LEVEL 130 MEQ/L (136-145); TOTAL PROTEIN 6.7 GM/DL (6.4-8.2)
[2020-11-26 05:23] LABS: ETHYL ALCOHOL (ETHANOL) < 0.003 % (0.000-0.010)
[2020-11-26] MEDS ORDERED: KETOROLAC 30 MG/ML 1ML VIAL IV ONE (05:40)
[2020-11-26] MEDS ORDERED: PERCOCET 5MG/325MG TAB PO ONE (06:35)
--- NOTE | 2020-11-26 06:39 | REPVR ---
PROCEDURE INFORMATION: Exam: XR Chest Exam date and time: 11/26/2020 5:22 AM Age: 40 years old Clinical indication: Other: Cough TECHNIQUE: Imaging protocol: XR of the chest. Views: 1 view. COMPARISON: 1. CR Ribs uni W-PA CHEST ONLY RIGHT 01/30/2020 7:56 AM 2. CR Chest, 1 view 07/17/2019 7:31 PM 3. KS PORTABLE CHEST X-RAY 01/07/2019 10:49 PM FINDINGS: Tubes, catheters and devices: Right-sided dual lumen chest port seen with its tip at the cavoatrial junction. Lungs: There is low lung volume with bronchovascular crowding. There is no focal consolidation. Pleural spaces: Unremarkable. No pleural effusion. No pneumothorax. Heart/Mediastinum: Unremarkable. No cardiomegaly. Bones/joints: Unremarkable. IMPRESSION: No focal lung consolidation. Low lung volume with bronchovascular crowding with some prominent interstitium likely due to portable technique. Underlying subtle infiltrates cannot be excluded. Electronically signed by: Gee Carlin On 11/26/2020 06:38:52 AM
[2020-11-26 07:18] LABS: MONO SCRN NEGATIVE (NEGATIVE)
[2020-11-26] MEDS ORDERED: HYDR-4571 PO (08:10)
[2020-11-26 08:15] VITALS: BP 113/71
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
== END 2020-11-26 08:22 | disposition home or self-care (01) ==
LOC: M ED 04:16
DX: L04.9 Acute lymphadenitis, unspecified (principal); Z85.72 Personal history of non-Hodgkin lymphomas; Z86.711 Personal history of pulmonary embolism; Z86.19 Personal history of other infectious and parasitic diseases; F17.200 Nicotine dependence, unspecified, uncomplicated; Z79.01 Long term (current) use of anticoagulants; Z88.0 Allergy status to penicillin; Z88.5 Allergy status to narcotic agent
CPT/HCPCS: 71045; 80053; 82077; 83615; 85025; 85652; 86140; 86308; 87798; 96374; 99284; J1885

== ENCOUNTER 2020-11-28 17:06 | Emergency (ER) | payer OTHER ==
[~2020-11-28] VITALS: Ht 182.9 cm; Wt 73.1 kg
[2020-11-28 17:06] VITALS: BP 151/89
[~2020-11-28 17:06] MED LIST changes: +HYDR-4571 PO
[2020-11-28] MEDS ORDERED: GABA-283 PO (17:13)
[2020-11-29] MEDS ORDERED: HYDR-3713 PO (08:50)
[2020-11-29] MEDS ORDERED: GABA600T4 PO (08:50)
[2020-11-29] MEDS ORDERED: GABA-282 PO (08:50)
== END 2020-11-28 18:28 | disposition left against medical advice (07) ==
LOC: M ED 17:06
DX: Z53.21 Procedure and treatment not carried out due to patient leaving prior to being seen by health care provider (principal)

== ENCOUNTER 2020-11-29 02:53 | Emergency (ER) | payer OTHER ==
[~2020-11-29] VITALS: Ht 182.9 cm; Wt 86.4 kg
[~2020-11-29 02:53] MED LIST changes: +GABA-283 PO
[2020-11-29] MEDS ORDERED: VANCOMYCIN HCL 1,000 MG, VIAL MATE ADAPTER 1 EACH in NS 250 ML IV ONE (06:35)
[2020-11-29] MEDS ORDERED: ACETAMINOPHEN 325 MG TAB PO ONE (06:35)
[2020-11-29 06:50] LABS: ALBUMIN 2.7 GM/DL (3.2-5.2); ALT/SGPT 36 U/L (12-78); BILIRUBIN,DIRECT 0.3 MG/DL (0.0-0.2); BILIRUBIN,TOTAL 0.7 MG/DL (0.2-1.0); BLOOD UREA NITROGEN 13 MG/DL (7-18); CALCIUM LEVEL 7.5 MG/DL (8.5-10.1); CARBON DIOXIDE LEVEL 27 MEQ/L (21-32); CHLORIDE LEVEL 92 MEQ/L (98-107); GLOMERULAR FILTRATION RATE > 60.0 (>60); GLUCOSE, FASTING 116 MG/DL (70-100); HEMATOCRIT 39.7 % (42.0-52.0); HEMOGLOBIN 13.4 g/dl (13.5-17.5); MEAN CORPUSCULAR HEMOGLOBIN 29.1 pg (27.0-33.0); MEAN CORPUSCULAR HGB CONC 33.8 g/dl (32.0-36.5); MEAN CORPUSCULAR VOLUME 86.3 fl (80.0-96.0); PLATELET COUNT, AUTOMATED 213 10^3/uL (150-450); POTASSIUM SERUM 3.6 MEQ/L (3.5-5.1); SODIUM LEVEL 125 MEQ/L (136-145); TOTAL PROTEIN 6.5 GM/DL (6.4-8.2)
[2020-11-29 06:57] LABS: WHITE BLOOD COUNT 18.6 10^3/uL (4.0-10.0)
[2020-11-29 07:16] LABS: APPEARANCE, URINE CLEAR (CLEAR); BACTERIA, URINE AUTO NEGATIVE (NEGATIVE); BILIRUBIN, URINE AUTO NEGATIVE (NEGATIVE); BLOOD, URINE BLOOD 2+ (NEGATIVE); COLOR, URINE YELLOW (YELLOW); GLUCOSE, URINE (UA) AUTO NEGATIVE (NEGATIVE); KETONE, URINE AUTO NEGATIVE (NEGATIVE); LEUKOCYTE ESTERASE, URINE AUTO NEGATIVE (NEGATIVE); MUCUS, URINE SMALL (NEGATIVE); NITRITE, URINE AUTO NEGATIVE (NEGATIVE); PROTEIN, URINE AUTO 2+ mg/dL (NEGATIVE); RBC, URINE AUTO 1 /HPF (0-3); SPECIFIC GRAVITY URINE AUTO 1.019 (1.002-1.035); SQUAMOUS EPITHELIAL CELL UR AU 0 /HPF (0-6); WBC, URINE AUTO 1 /HPF (0-3)
[2020-11-29 07:22] LABS: INFLUENZA A AMPLIFICATION NEGATIVE (NEGATIVE); INFLUENZA B AMPLIFICATION NEGATIVE (NEGATIVE)
[2020-11-29 07:28] LABS: LYMPHOCYTES 6 % (16-44); MONOCYTES 12 % (0-5); NEUTROPHILS 64 % (28-66)
[2020-11-29 07:31] LABS: PLATELET ESTIMATE NORMAL (NORMAL)
[2020-11-29] MEDS ORDERED: SODIUM CHLORIDE 0.9% INJ 10 ML SYR IV PRN (07:35)
[2020-11-29] MEDS ORDERED: CEFEPIME HCL 2 GM in D5W MINI-BAG PLUS 50 ML IV ONE (07:45)
[2020-11-29] MEDS ORDERED: ISOVUE-370 76% 100ML VIAL As Ordered ONE (07:56)
[2020-11-29 08:06] LABS: AMYLASE 39 U/L (25-115); CK-MB VALUE MASS 1.7 NG/ML (<3.6); CPK CREATINE PHOSPHOKINASE 72 U/L (39-308); MB/CK RELATIVE INDEX 2.36 (< OR =4); TROPONIN I < 0.02 NG/ML (< 0.10)
--- NOTE | 2020-11-29 08:21 | REP ---
INDICATION: SEPSIS/SHOCK COMPARISON: 11/26/2020 TECHNIQUE: Portable AP view of the chest FINDINGS: The mediastinum and cardiac silhouette are stable and within normal limits for portable technique. Lskmtt-L-Ebex with tip in the SVC. The lung jackson demonstrate advanced chronic COPD/emphysematous changes. No focal consolidation, effusion, or pneumothorax. Skeletal structures are intact. IMPRESSION: Chronic changes. No obvious acute process appreciated. <Electronically signed by Austin Benson > 11/29/20 [id number]
[2020-11-29 08:22] LABS: INR 1.67; PROTHROMBIN TIME 20.1 SECONDS (12.5-14.3)
[2020-11-29 08:23] LABS: PARTIAL THROMBOPLASTIN TIME 36.5 SECONDS (24.2-38.5)
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
[2020-11-29] MEDS ORDERED: GABA-282 PO (08:50)
[2020-11-29] MEDS ORDERED: GABA600T4 PO (08:50)
[2020-11-29] MEDS ORDERED: HYDR-3713 PO (08:50)
[2020-11-29 12:30] VITALS: BP 100/55
--- NOTE | 2020-11-29 17:50 | ECHO ---
ECHOCARDIOGRAM DATE OF PROCEDURE: 11/29/2020 Age: 40 Gender: Male Height: 72 inches Weight: 189 pounds, body surface area 8.2 m2 PATIENT LOCATION: Outpatient in the emergency room. REFERRING PHYSICIAN: Otoniel Haynes M.D. INDICATION: Endocarditis. MEASUREMENTS: 2D Measurements: RV - 3.8 cm LV - 4.0 cm Septum 1.1 cm Posterior wall 1.1 cm Aortic room 3.4 cm LA - 3.9 cm LVEF 70% Doppler Measurements: AV - 1.26 m/sec LVOT - 1.0 m/sec MV-E 56, A 51, EA ratio 1.1 Early mitral deceleration time 214 msec E prime medial 6.3 A prime medial 7.3 E prime lateral 8.1 Average E/E prime ratio 7.5/PCWP 11.5 mmHg PV - 1.0 m/sec Pulmonary artery acceleration time 120 msec PASP 28 mmHg IVC - 2.0 cm COMMENTS: Normal sinus rhythm without intraventricular conduction disturbance. 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 M-mode and 2-dimensional echocardiography was performed with pulse, continuous wave, color flow as well as tissue Doppler studies. Normal left ventricular size, wall thickness and wall motion. Normal left atrial size and Doppler assessment of left ventricular (LV) diastolic function and estimated mean left atrial pressure. Normal right heart chamber sizes and motion and estimated pulmonary arterial pressure. Normal inferior vena cava (IVC) size and collapse against a central venous pressure. Normal aortic dimensions. Mild aortic valvular sclerosis without functional abnormality. Slightly thickened mitral annulus, but normal leaflets and leaflet excursion with no posterior systolic buckling. No apparent mitral insufficiency. Normal appearing tricuspid valve and tricuspid valve function. No apparent intracardiac mass or pericardial effusion. If endocarditis is seriously suspect, we would recommend a complete blood count with sedimentation rate and two sets of blood cultures by 12 hours, along with consideration of a transesophageal echocardiogram.
--- NOTE | 2020-11-29 21:06 | ECGEPIP ---
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
--- NOTE | 2020-11-29 21:07 | ECGEPIP ---
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
== END 2020-11-29 12:36 | disposition short-term general hospital (02) ==
LOC: M ED 02:53
DX: C78.00 Secondary malignant neoplasm of unspecified lung (principal); C81.99 Hodgkin lymphoma, unspecified, extranodal and solid organ sites; R50.9 Fever, unspecified; R00.0 Tachycardia, unspecified; Z86.19 Personal history of other infectious and parasitic diseases; F19.10 Other psychoactive substance abuse, uncomplicated; F17.200 Nicotine dependence, unspecified, uncomplicated; Z79.899 Other long term (current) drug therapy; Z88.1 Allergy status to other antibiotic agents; Z88.5 Allergy status to narcotic agent
CPT/HCPCS: 70491; 71045; 71260; 74177; 80048; 80076; 81001; 82150; 82550; 82553; 83605; 85025; 85610; 85730; 86140; 86850; 86900; 86901; 87040; 87077; 87086; 87186; 87502; 93005; 93306; 96365; 96367; 99285; J0692; J3370; Q9967; U0002

== ENCOUNTER 2021-02-01 04:44 | Inpatient (IN) | payer OTHER ==
[~2021-02-01] VITALS: Ht 182.9 cm; Wt 70.8 kg
[~2021-02-01 04:44] MED LIST changes: -CEFD1CAP8 PO; +CEFD300C41 PO; +CLIN-250 PO; -CLIN300C6 PO; +DOXY-443 PO; -DOXY1CAP62 PO; +HYDR-3713 PO; +ONDA-84; -ONDA8TAB10
[2021-02-01] MEDS ORDERED: LORazepam 2 MG/ML VIAL As Ordered ONE ×2 (05:11→05:33)
[2021-02-01] MEDS ORDERED: LORazepam 2 MG/ML VIAL IV STA ×2 (05:12→05:33)
[2021-02-01] MEDS ORDERED: NS 1,000 ML IV ONE ×3 (05:15→13:35)
[2021-02-01] MEDS ORDERED: HALOPERIDOL 5MG/ML VIAL (J1630 PER 1) IM ONE (05:20)
[2021-02-01] MEDS ORDERED: LORazepam 2 MG/ML VIAL IM ONE (05:20)
[2021-02-01] MEDS ORDERED: diphenhydrAMINE 50MG/ML VIAL (J1200) IM ONE (05:20)
[2021-02-01 05:42] LABS: HEMATOCRIT 27.7 % (42.0-52.0); HEMOGLOBIN 8.9 g/dl (13.5-17.5); MEAN CORPUSCULAR HEMOGLOBIN 27.8 pg (27.0-33.0); MEAN CORPUSCULAR HGB CONC 32.1 g/dl (32.0-36.5); MEAN CORPUSCULAR VOLUME 86.6 fl (80.0-96.0); PLATELET COUNT, AUTOMATED 288 10^3/uL (150-450); WHITE BLOOD COUNT 12.1 10^3/uL (4.0-10.0)
[2021-02-01 06:04] LABS: AMPHETAMINES LEVEL URINE POSITIVE (NEGATIVE); BARBITURATES URINE NEGATIVE (NEGATIVE); BENZODIAZEPINES URINE NEGATIVE (NEGATIVE); CANNABINOIDS URINE NEGATIVE (NEGATIVE); COCAINE METABOLITE URINE NEGATIVE (NEGATIVE); METHADONE URINE NEGATIVE (NEGATIVE); OPIATES URINE POSITIVE (NEGATIVE); PHENCYCLIDINE URINE NEGATIVE (NEGATIVE)
[2021-02-01] MEDS ORDERED: DERMABOND TOPICAL SKIN ADHESIVE TOP ONE (06:05)
[2021-02-01 06:24] LABS: ACETAMINOPHEN LEVEL < 2.0 UG/ML (10.0-30.0); ALBUMIN 2.7 GM/DL (3.2-5.2); ALT/SGPT 33 U/L (12-78); BILIRUBIN,DIRECT < 0.1 MG/DL (0.0-0.2); BILIRUBIN,TOTAL 0.3 MG/DL (0.2-1.0); BLOOD UREA NITROGEN 22 MG/DL (7-18); CALCIUM LEVEL 8.6 MG/DL (8.5-10.1); CARBON DIOXIDE LEVEL 20 MEQ/L (21-32); CHLORIDE LEVEL 109 MEQ/L (98-107); CREATININE FOR GFR 1.56 MG/DL (0.70-1.30); ETHYL ALCOHOL (ETHANOL) < 0.003 % (0.000-0.010); GLUCOSE, FASTING 84 MG/DL (70-100); POTASSIUM SERUM 4.8 MEQ/L (3.5-5.1); SALICYLATE LEVEL < 1.7 MG/DL (5.0-30.0); SODIUM LEVEL 137 MEQ/L (136-145); TOTAL PROTEIN 8.2 GM/DL (6.4-8.2)
[2021-02-01 07:21] LABS: ABG BASE EXCESS -4.3 (-2.0-2.0); ABG HCO3 20.8 MEQ/L (22.0-26.0); ABG O2 SATURATION 98.6 % (95.0-99.0); ABG PARTIAL PRESSURE CO2 38.3 mmHg (35.0-45.0); ABG PARTIAL PRESSURE O2 118.6 mmHg (75.0-100.0); ABG STANDARD HCO3 20.9 MEQ/L (22.0-26.0); ABG pH (ARTERIAL) 7.353 UNITS (7.350-7.450)
[2021-02-01] MEDS ORDERED: NALOXONE 2MG/2ML SYRINGE (J2310 PER 1MG) As Ordered ONE (07:23)
[2021-02-01] MEDS ORDERED: ISOVUE-370 76% 100ML VIAL As Ordered ONE (08:32)
[2021-02-01] MEDS ORDERED: GABA-1171 PO (08:47)
[2021-02-01] MEDS ORDERED: BENZ-18 PO (08:47)
[2021-02-01] MEDS ORDERED: ALBU8.5H INH (08:47)
[2021-02-01] MEDS ORDERED: MED REC COMMENT (08:48)
[2021-02-01] MEDS ORDERED: HOME MED LIST COMPLETE! XX SCH (08:50)
[2021-02-01 08:58] LABS: C REACTIVE PROTEIN QUANTITATIV 4.43 MG/DL (0.00-0.30); CK-MB VALUE MASS 3.2 NG/ML (<3.6); CPK CREATINE PHOSPHOKINASE 92 U/L (39-308); MB/CK RELATIVE INDEX 3.48 (< OR =4); TROPONIN I < 0.02 NG/ML (< 0.10)
[2021-02-01 09:18] LABS: ERYTHROCYTE SEDIMENTATION RATE 81 mm/hr (0-15)
[2021-02-01 09:37] LABS: HEMATOCRIT 29.1 % (42.0-52.0); HEMOGLOBIN 9.2 g/dl (13.5-17.5); MEAN CORPUSCULAR HEMOGLOBIN 27.5 pg (27.0-33.0); MEAN CORPUSCULAR HGB CONC 31.6 g/dl (32.0-36.5); MEAN CORPUSCULAR VOLUME 86.9 fl (80.0-96.0); PLATELET COUNT, AUTOMATED 315 10^3/uL (150-450); RED BLOOD COUNT 3.35 10^6/uL (4.30-6.10); WHITE BLOOD COUNT 9.8 10^3/uL (4.0-10.0)
[2021-02-01 10:13] LABS: RSV AMPLIFICATION NEGATIVE (NEGATIVE)
[2021-02-01] MEDS ORDERED: ALBUTEROL 90 MCG/ACT 8GM HFA INHALER INH PRN (10:35)
[2021-02-01] MEDS ORDERED: BENZONATATE 100MG CAPSULE PO PRN (10:35)
[2021-02-01] MEDS ORDERED: ACETAMINOPHEN TAB 650MG DOSE (2X325MG) PO PRN (10:35)
[2021-02-01] MEDS ORDERED: LORazepam 2 MG TAB PO PRN (10:35)
[2021-02-01] MEDS ORDERED: LORazepam 2 MG/ML VIAL IV PRN ×2 (10:35→11:25)
[2021-02-01] MEDS: THIAMINE 100 MG TAB PO SCH ×2 (11:30→21:34)
[2021-02-01 12:33] LABS: APPEARANCE, URINE CLEAR (CLEAR); BACTERIA, URINE AUTO NEGATIVE (NEGATIVE); BILIRUBIN, URINE AUTO NEGATIVE (NEGATIVE); BLOOD, URINE BLOOD 3+ (NEGATIVE); COLOR, URINE STRAW (YELLOW); GLUCOSE, URINE (UA) AUTO NEGATIVE (NEGATIVE); KETONE, URINE AUTO NEGATIVE (NEGATIVE); LEUKOCYTE ESTERASE, URINE AUTO NEGATIVE (NEGATIVE); MUCUS, URINE SMALL (NEGATIVE); NITRITE, URINE AUTO NEGATIVE (NEGATIVE); PROTEIN, URINE AUTO NEGATIVE (NEGATIVE); RBC, URINE AUTO 37 /HPF (0-3); SPECIFIC GRAVITY URINE AUTO 1.013 (1.002-1.035); SQUAMOUS EPITHELIAL CELL UR AU 0 /HPF (0-6); UROBILINOGEN, URINE AUTO 0.2 mg/dL (0.0-2.0); WBC, URINE AUTO 2 /HPF (0-3)
[2021-02-01 12:54] LABS: CREATININE,RANDOM URINE 33.3 MG/DL
[2021-02-01] MEDS ORDERED: PIPERACILLIN/TAZOBACTAM SOD 3.375 GM in D5W MINI-BAG PLUS 50 ML IV SCH (14:00)
[2021-02-01 14:12] VITALS: BP 139/66
[2021-02-01 15:35] VITALS: BP 162/77
[2021-02-01] MEDS: PIPERACILLIN/TAZOBACTAM SOD 3.375 GM in D5W MINI-BAG PLUS 50 ML IV SCH ×2 (15:54→21:34)
[2021-02-01] MEDS: GABAPENTIN 100 MG CAP PO SCH ×2 (16:00→21:34)
[2021-02-01] MEDS ORDERED: VANCOMYCIN HCL 750 MG, VIAL MATE ADAPTER 1 EACH in NS 250 ML IV ONE ×2 (18:00→19:00)
[2021-02-01 20:00] VITALS: BP 117/58
[2021-02-01] MEDS: APIXABAN 5 MG TAB (ELIQUIS) PO SCH (21:34)
[2021-02-01] MEDS: NS 1,000 ML IV SCH (21:34)
[2021-02-02] VITALS: BP 103/57
[2021-02-02] MEDS: NS 1,000 ML IV SCH (03:42)
[2021-02-02] MEDS: PIPERACILLIN/TAZOBACTAM SOD 3.375 GM in D5W MINI-BAG PLUS 50 ML IV SCH ×3 (03:42→16:24)
[2021-02-02 04:00] VITALS: BP 122/70
[2021-02-02] MEDS: VANCOMYCIN HCL 1,000 MG, VIAL MATE ADAPTER 1 EACH in NS 250 ML IV SCH ×2 (04:45→10:53)
[2021-02-02 05:29] LABS: HEMATOCRIT 29.4 % (42.0-52.0); HEMOGLOBIN 9.4 g/dl (13.5-17.5); MEAN CORPUSCULAR HEMOGLOBIN 27.6 pg (27.0-33.0); MEAN CORPUSCULAR VOLUME 86.2 fl (80.0-96.0); PLATELET COUNT, AUTOMATED 315 10^3/uL (150-450); RED BLOOD COUNT 3.41 10^6/uL (4.30-6.10); WHITE BLOOD COUNT 8.1 10^3/uL (4.0-10.0)
[2021-02-02 05:54] LABS: ALBUMIN 2.2 GM/DL (3.2-5.2); ALT/SGPT 28 U/L (12-78); BILIRUBIN,TOTAL 0.4 MG/DL (0.2-1.0); BLOOD UREA NITROGEN 13 MG/DL (7-18); C REACTIVE PROTEIN QUANTITATIV 5.03 MG/DL (0.00-0.30); CARBON DIOXIDE LEVEL 21 MEQ/L (21-32); CHLORIDE LEVEL 109 MEQ/L (98-107); GLOMERULAR FILTRATION RATE > 60.0 (>60); GLUCOSE, FASTING 126 MG/DL (70-100); MAGNESIUM LEVEL 1.9 MG/DL (1.8-2.4); POTASSIUM SERUM 3.7 MEQ/L (3.5-5.1); SODIUM LEVEL 138 MEQ/L (136-145); TOTAL PROTEIN 7.1 GM/DL (6.4-8.2)
[2021-02-02 07:35] VITALS: BP 136/79
[2021-02-02] MEDS: GABAPENTIN 100 MG CAP PO SCH ×3 (09:17→22:54)
[2021-02-02] MEDS: MULTIVITAMINS/MINERALS THERAP 1 TAB PO SCH (09:17)
[2021-02-02] MEDS: APIXABAN 5 MG TAB (ELIQUIS) PO SCH ×2 (09:18→22:54)
[2021-02-02] MEDS: THIAMINE 100 MG TAB PO SCH ×2 (09:18→22:54)
[2021-02-02] MEDS: FOLIC ACID 1 MG TAB PO SCH (09:18)
[2021-02-02 10:11] LABS: FERRITIN 405 NG/ML (26-388); IRON (FE) 38 UG/DL (65-175); LDH LACTATE DEHYDROGENASE 119 U/L (87-241); PERCENT SATURATION 17.8 % (19.7-50.0); TOTAL IRON BINDING CAPACITY 213 UG/DL (250-450)
[2021-02-02 11:50] VITALS: BP 128/72
[2021-02-02 15:37] VITALS: BP 120/56
[2021-02-02] MEDS ORDERED: CALCIUM CARBONATE 500 MG CHEW U/D PO PRN (15:55)
[2021-02-02] MEDS ORDERED: HEPATITIS A VACCINE IM ONE (16:40)
[2021-02-02] MEDS ORDERED: HEPATITIS B VACCINE IM ONE (16:40)
[2021-02-02] MEDS: oxyCODONE 5MG TAB PO PRN (18:46)
[2021-02-02 20:00] VITALS: BP 140/92
[2021-02-02] MEDS ORDERED: ONDANSETRON 4MG/2ML VIAL IV PRN (20:20)
[2021-02-02] MEDS: DOXYCYCLINE HYCLATE 100MG TABLET PO SCH (22:54)
[2021-02-03] VITALS: BP 120/72
[2021-02-03] MEDS: oxyCODONE 5MG TAB PO PRN ×2 (01:09→07:46)
[2021-02-03 04:00] VITALS: BP 122/78
[2021-02-03 05:33] LABS: HEMATOCRIT 31.9 % (42.0-52.0); HEMOGLOBIN 10.1 g/dl (13.5-17.5); MEAN CORPUSCULAR HEMOGLOBIN 27.3 pg (27.0-33.0); MEAN CORPUSCULAR HGB CONC 31.7 g/dl (32.0-36.5); MEAN CORPUSCULAR VOLUME 86.2 fl (80.0-96.0); PLATELET COUNT, AUTOMATED 378 10^3/uL (150-450); WHITE BLOOD COUNT 9.7 10^3/uL (4.0-10.0)
[2021-02-03 06:02] LABS: ALBUMIN 2.2 GM/DL (3.2-5.2); ALT/SGPT 23 U/L (12-78); BILIRUBIN,TOTAL 0.3 MG/DL (0.2-1.0); BLOOD UREA NITROGEN 8 MG/DL (7-18); C REACTIVE PROTEIN QUANTITATIV 2.29 MG/DL (0.00-0.30); CALCIUM LEVEL 8.4 MG/DL (8.5-10.1); CARBON DIOXIDE LEVEL 27 MEQ/L (21-32); CHLORIDE LEVEL 110 MEQ/L (98-107); CREATININE FOR GFR 1.07 MG/DL (0.70-1.30); GLOMERULAR FILTRATION RATE > 60.0 (>60); GLUCOSE, FASTING 106 MG/DL (70-100); MAGNESIUM LEVEL 1.8 MG/DL (1.8-2.4); POTASSIUM SERUM 3.3 MEQ/L (3.5-5.1); SODIUM LEVEL 141 MEQ/L (136-145); TOTAL PROTEIN 7.9 GM/DL (6.4-8.2)
[2021-02-03] MEDS: MULTIVITAMINS/MINERALS THERAP 1 TAB PO SCH (07:44)
[2021-02-03] MEDS: DOXYCYCLINE HYCLATE 100MG TABLET PO SCH (07:44)
[2021-02-03] MEDS: GABAPENTIN 100 MG CAP PO SCH (07:44)
[2021-02-03] MEDS: FOLIC ACID 1 MG TAB PO SCH (07:45)
[2021-02-03] MEDS: APIXABAN 5 MG TAB (ELIQUIS) PO SCH (07:45)
[2021-02-03] MEDS: THIAMINE 100 MG TAB PO SCH (07:45)
[2021-02-03 07:57] VITALS: BP 146/84
[2021-02-03] MEDS ORDERED: POTASSIUM CHLORIDE 10MEQ SR TABLET PO ONE (08:00)
[2021-02-03 12:08] LABS: HEPATITIS C QUANTITATION 920 IU/mL (.)
[2021-02-03] MEDS ORDERED: DOXY-350 PO (16:34)
== END 2021-02-03 09:18 | disposition left against medical advice (07) | DRG 469 ==
LOC: M ED 04:44 → M ED INP 11:50 → ENRESERV 12:25 → M PCU 14:32
PROVIDERS: ADMIT Internal Medicine; ATTEND Internal Medicine
DX: N17.9 Acute kidney failure, unspecified (principal); J18.9 Pneumonia, unspecified organism; C81.90 Hodgkin lymphoma, unspecified, unspecified site; S09.90XA Unspecified injury of head, initial encounter; R41.82 Altered mental status, unspecified; B18.2 Chronic viral hepatitis C; Z86.711 Personal history of pulmonary embolism; Z86.718 Personal history of other venous thrombosis and embolism; Z79.899 Other long term (current) drug therapy; Z88.0 Allergy status to penicillin; Z88.8 Allergy status to other drugs, medicaments and biological substances; F17.200 Nicotine dependence, unspecified, uncomplicated; F11.90 Opioid use, unspecified, uncomplicated; W18.30XA Fall on same level, unspecified, initial encounter; Y92.009 Unspecified place in unspecified non-institutional (private) residence as the place of occurrence of the external cause; F10.10 Alcohol abuse, uncomplicated

== ENCOUNTER 2021-03-02 18:02 | Emergency (ER) | payer OTHER ==
[~2021-03-02] VITALS: Ht 185.4 cm; Wt 86.4 kg
[~2021-03-02 18:02] MED LIST changes: +ALBU8.5H INH; +BENZ-18 PO; +CEFD1CAP8 PO; -CEFD300C41 PO; -CLIN-250 PO; +CLIN300C6 PO; +DOXY-350 PO; -DOXY-443 PO; +DOXY1CAP62 PO; +MED REC COMMENT; -ONDA-84; +ONDA8TAB10
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
[2021-03-02 20:32] VITALS: BP 127/79
== END 2021-03-02 20:30 | disposition home or self-care (01) ==
LOC: M ED 18:02 → EDBD 18:02 → M ED 20:30
DX: S00.83XA Contusion of other part of head, initial encounter (principal); S50.319A Abrasion of unspecified elbow, initial encounter; S80.211A Abrasion, right knee, initial encounter; S06.0X9A Concussion with loss of consciousness of unspecified duration, initial encounter; F19.10 Other psychoactive substance abuse, uncomplicated; Y04.0XXA Assault by unarmed brawl or fight, initial encounter; Y92.099 Unspecified place in other non-institutional residence as the place of occurrence of the external cause; Y93.9 Activity, unspecified; Y99.9 Unspecified external cause status; Z86.19 Personal history of other infectious and parasitic diseases; Z86.711 Personal history of pulmonary embolism; F17.200 Nicotine dependence, unspecified, uncomplicated; Z79.01 Long term (current) use of anticoagulants; Z79.899 Other long term (current) drug therapy; Z88.1 Allergy status to other antibiotic agents; Z88.5 Allergy status to narcotic agent

== ENCOUNTER 2021-06-28 08:11 | Emergency (ER) | payer OTHER ==
[~2021-06-28] VITALS: Ht 165.1 cm; Wt 85.0 kg
[~2021-06-28 08:11] MED LIST changes: -CEFD1CAP8 PO; +CEFD300C41 PO; +CLIN-250 PO; -CLIN300C6 PO; +DOXY-443 PO; -DOXY1CAP62 PO; +ONDA-84; -ONDA8TAB10
[2021-06-28] MEDS ORDERED: ACETAMINOPHEN TAB 650MG DOSE (2X325MG) PO ONE (14:30)
[2021-06-28 15:17] LABS: AMPHETAMINES LEVEL URINE NEGATIVE (NEGATIVE); BARBITURATES URINE NEGATIVE (NEGATIVE); BENZODIAZEPINES URINE NEGATIVE (NEGATIVE); CANNABINOIDS URINE NEGATIVE (NEGATIVE); COCAINE METABOLITE URINE NEGATIVE (NEGATIVE); METHADONE URINE NEGATIVE (NEGATIVE); OPIATES URINE POSITIVE (NEGATIVE); PHENCYCLIDINE URINE NEGATIVE (NEGATIVE)
[2021-06-28 17:44] VITALS: BP 130/80
== END 2021-06-28 17:47 | disposition home or self-care (01) ==
LOC: M ED 08:11
DX: T40.1X1A Poisoning by heroin, accidental (unintentional), initial encounter (principal); Y92.9 Unspecified place or not applicable; Y93.9 Activity, unspecified; J45.909 Unspecified asthma, uncomplicated; I50.9 Heart failure, unspecified; F11.10 Opioid abuse, uncomplicated; Z86.711 Personal history of pulmonary embolism; Z85.9 Personal history of malignant neoplasm, unspecified; Z79.01 Long term (current) use of anticoagulants; Z79.899 Other long term (current) drug therapy; Z88.0 Allergy status to penicillin; Z88.5 Allergy status to narcotic agent

== ENCOUNTER 2022-01-11 11:41 | Emergency (ER) | payer OTHER ==
[2022-01-11 12:06] VITALS: BP 111/65
== END 2022-01-11 17:50 | disposition left against medical advice (07) ==
LOC: M ED 11:41
DX: Z53.21 Procedure and treatment not carried out due to patient leaving prior to being seen by health care provider (principal)

== ENCOUNTER 2022-01-11 19:28 | Emergency (ER) | payer OTHER ==
[~2022-01-11] VITALS: Ht 185.4 cm; Wt 95.5 kg
[2022-01-11 19:31] VITALS: BP 132/82
[2022-01-11 20:29] LABS: BASO # 0.1 10^3/uL (0.0-0.2); BASO % 0.8 % (0.0-1.0); EOS # 0.3 10^3/uL (0.0-0.5); EOS % 5.3 % (0.0-3.0); HEMATOCRIT 37.9 % (42.0-52.0); HEMOGLOBIN 12.3 g/dl (13.5-17.5); LYMPH # 2.8 10^3/uL (1.5-5.0); LYMPH % 43.6 % (24.0-44.0); MEAN CORPUSCULAR HEMOGLOBIN 29.5 pg (27.0-33.0); MEAN CORPUSCULAR HGB CONC 32.5 g/dl (32.0-36.5); MEAN CORPUSCULAR VOLUME 90.9 fl (80.0-96.0); MONO # 0.4 10^3/uL (0.0-0.8); MONO % 5.6 % (2.0-8.0); NEUTROPHILS # 2.9 10^3/uL (1.5-8.5); NEUTROPHILS % 44.4 % (36.0-66.0); PLATELET COUNT, AUTOMATED 217 10^3/uL (150-450); RED BLOOD COUNT 4.17 10^6/uL (4.30-6.10); WHITE BLOOD COUNT 6.4 10^3/uL (4.0-10.0)
[2022-01-11 21:01] LABS: BLOOD UREA NITROGEN 13 MG/DL (7-18); CALCIUM LEVEL 8.6 MG/DL (8.5-10.1); CARBON DIOXIDE LEVEL 26 MEQ/L (21-32); CHLORIDE LEVEL 109 MEQ/L (98-107); CREATININE FOR GFR 1.08 MG/DL (0.70-1.30); GLOMERULAR FILTRATION RATE > 60.0 (>60); GLUCOSE, FASTING 90 MG/DL (70-100); MAGNESIUM LEVEL 2.2 MG/DL (1.8-2.4); POTASSIUM SERUM 3.6 MEQ/L (3.5-5.1); SODIUM LEVEL 140 MEQ/L (136-145)
[2022-01-11 21:06] LABS: CK-MB VALUE MASS 6.8 NG/ML (<3.6); MB/CK RELATIVE INDEX 3.86 (< OR =4)
[2022-01-11 22:40] LABS: CK-MB VALUE MASS 5.9 NG/ML (<3.6); MB/CK RELATIVE INDEX 3.86 (< OR =4)
== END 2022-01-11 22:54 | disposition home or self-care (01) ==
LOC: M ED 19:28
DX: R07.89 Other chest pain (principal); Z59.00 Homelessness unspecified; I44.0 Atrioventricular block, first degree; J45.909 Unspecified asthma, uncomplicated; F19.10 Other psychoactive substance abuse, uncomplicated; Z86.711 Personal history of pulmonary embolism; F17.200 Nicotine dependence, unspecified, uncomplicated; Z79.01 Long term (current) use of anticoagulants; Z79.899 Other long term (current) drug therapy; Z88.0 Allergy status to penicillin; Z88.5 Allergy status to narcotic agent

== ENCOUNTER 2022-03-09 00:27 | Emergency (ER) | payer OTHER ==
[~2022-03-09] VITALS: Ht 182.9 cm; Wt 85.0 kg
[2022-03-09 00:40] VITALS: BP 128/82
== END 2022-03-09 00:55 | disposition left against medical advice (07) ==
LOC: EDBD 00:27 → M ED 00:27
DX: Z53.21 Procedure and treatment not carried out due to patient leaving prior to being seen by health care provider (principal)

== ENCOUNTER 2022-03-11 11:47 | Inpatient (IN) | payer OTHER ==
[~2022-03-11] VITALS: Ht 182.9 cm; Wt 89.1 kg
[2022-03-11] MEDS ORDERED: LORA-674 PO (12:09)
[2022-03-11] MEDS ORDERED: FLUO20CA22 PO (12:09)
[2022-03-11] MEDS ORDERED: METH10CO PO (12:10)
[2022-03-11 13:45] LABS: HEMATOCRIT 37.4 % (42.0-52.0); HEMOGLOBIN 12.3 g/dl (13.5-17.5); MEAN CORPUSCULAR HEMOGLOBIN 29.7 pg (27.0-33.0); MEAN CORPUSCULAR HGB CONC 32.9 g/dl (32.0-36.5); MEAN CORPUSCULAR VOLUME 90.3 fl (80.0-96.0); PLATELET COUNT, AUTOMATED 215 10^3/uL (150-450); RED BLOOD COUNT 4.14 10^6/uL (4.30-6.10); WHITE BLOOD COUNT 7.5 10^3/uL (4.0-10.0)
[2022-03-11 14:11] LABS: RSV AMPLIFICATION NEGATIVE (NEGATIVE)
[2022-03-11 14:55] LABS: ACETAMINOPHEN LEVEL < 2.0 UG/ML (10.0-30.0); ALBUMIN 3.3 GM/DL (3.2-5.2); ALT/SGPT 56 U/L (12-78); BILIRUBIN,DIRECT 0.2 MG/DL (0.0-0.2); BILIRUBIN,TOTAL 0.3 MG/DL (0.2-1.0); BLOOD UREA NITROGEN 14 MG/DL (7-18); CALCIUM LEVEL 8.5 MG/DL (8.5-10.1); CARBON DIOXIDE LEVEL 27 MEQ/L (21-32); CHLORIDE LEVEL 104 MEQ/L (98-107); CREATININE FOR GFR 0.95 MG/DL (0.70-1.30); ETHYL ALCOHOL (ETHANOL) < 0.003 % (0.000-0.010); GLOMERULAR FILTRATION RATE > 60.0 (>60); GLUCOSE, FASTING 143 MG/DL (70-100); POTASSIUM SERUM 3.7 MEQ/L (3.5-5.1); SALICYLATE LEVEL < 1.7 MG/DL (5.0-30.0); SODIUM LEVEL 136 MEQ/L (136-145); THYROID STIMULATING HORMONE 0.714 uIU/ML (0.358-3.740)
[2022-03-11 19:07] LABS: AMPHETAMINES LEVEL URINE POSITIVE (NEGATIVE); BARBITURATES URINE NEGATIVE (NEGATIVE); BENZODIAZEPINES URINE NEGATIVE (NEGATIVE); CANNABINOIDS URINE NEGATIVE (NEGATIVE); COCAINE METABOLITE URINE NEGATIVE (NEGATIVE); METHADONE URINE POSITIVE (NEGATIVE); OPIATES URINE NEGATIVE (NEGATIVE); PHENCYCLIDINE URINE NEGATIVE (NEGATIVE)
[2022-03-11] MEDS ORDERED: traZODone 50 MG TAB PO SCH (21:00)
[2022-03-11] MEDS ORDERED: TRAZ-252 PO (21:22)
[2022-03-11] MEDS ORDERED: MED REC COMMENT (21:24)
[2022-03-11] MEDS ORDERED: HOME MED LIST COMPLETE! XX SCH (21:30)
[2022-03-11] MEDS: APIXABAN 5 MG TAB (ELIQUIS) PO SCH (22:18)
[2022-03-12] MEDS ORDERED: BACTRIM 160MG/800MG DS TAB PO ONE (07:25)
[2022-03-12] MEDS ORDERED: LIDOCAINE 1% MDV 20ML VIAL As Ordered ONE (08:29)
[2022-03-12] MEDS: METHADONE 10MG TAB PO SCH (09:00)
[2022-03-12] MEDS: APIXABAN 5 MG TAB (ELIQUIS) PO SCH ×2 (09:14→21:15)
[2022-03-12] MEDS ORDERED: LIDOCAINE 1% MDV 20ML VIAL ONE (11:00)
[2022-03-12] MEDS ORDERED: MAALOX 30 ML SUSP *UDC PO PRN (14:20)
[2022-03-12] MEDS ORDERED: MOM 30ML SUSPENSION UDC PO PRN (14:20)
[2022-03-12] MEDS ORDERED: ACETAMINOPHEN TAB 650MG DOSE (2X325MG) PO PRN (14:20)
[2022-03-12] MEDS ORDERED: ALBUTEROL 90 MCG/ACT 8GM HFA INHALER INH PRN (14:20)
[2022-03-12 16:41] VITALS: BP 136/64
[2022-03-12] MEDS: FLUoxetine 20MG CAP PO SCH (17:24)
[2022-03-12] MEDS: NICOTINE 21MG/24HR 1 EA TRANSDERMAL TD SCH (17:24)
[2022-03-12] MEDS: LORATADINE 10 MG TAB PO SCH (17:24)
[2022-03-12] MEDS: traZODone 50 MG TAB PO PRN (21:15)
[2022-03-13 06:36] VITALS: BP 106/53
[2022-03-13] MEDS: METHADONE 10MG TAB PO SCH ×2 (08:00→13:45)
[2022-03-13] MEDS: NICOTINE 21MG/24HR 1 EA TRANSDERMAL TD SCH (08:49)
[2022-03-13] MEDS: LORATADINE 10 MG TAB PO SCH (08:49)
[2022-03-13] MEDS: FLUoxetine 20MG CAP PO SCH (08:49)
[2022-03-13] MEDS: APIXABAN 5 MG TAB (ELIQUIS) PO SCH ×2 (08:49→22:05)
[2022-03-13] MEDS ORDERED: INFLUENZA QUADRIVALENT PF VACCINE 0.5ML SYRINGE IM.IMMUN ONE (09:00)
[2022-03-13] MEDS: BACTRIM 160MG/800MG DS TAB PO SCH ×2 (11:06→22:05)
[2022-03-13 18:00] VITALS: BP 115/58
[2022-03-13] MEDS: traZODone 50 MG TAB PO PRN (22:05)
[2022-03-14 06:32] VITALS: BP 111/53
[2022-03-14] MEDS: BACTRIM 160MG/800MG DS TAB PO SCH ×2 (08:11→20:26)
[2022-03-14] MEDS: NICOTINE 21MG/24HR 1 EA TRANSDERMAL TD SCH (08:11)
[2022-03-14] MEDS: METHADONE 10MG TAB PO SCH (08:11)
[2022-03-14] MEDS: FLUoxetine 20MG CAP PO SCH (08:12)
[2022-03-14] MEDS: APIXABAN 5 MG TAB (ELIQUIS) PO SCH ×2 (08:12→20:26)
[2022-03-14] MEDS: LORATADINE 10 MG TAB PO SCH (08:12)
[2022-03-14 16:23] VITALS: BP 122/63
[2022-03-14] MEDS: traZODone 50 MG TAB PO PRN (20:26)
[2022-03-15 06:34] VITALS: BP 156/86
[2022-03-15] MEDS: FLUoxetine 20MG CAP PO SCH (08:18)
[2022-03-15] MEDS: LORATADINE 10 MG TAB PO SCH (08:18)
[2022-03-15] MEDS: APIXABAN 5 MG TAB (ELIQUIS) PO SCH ×2 (08:18→20:54)
[2022-03-15] MEDS: BACTRIM 160MG/800MG DS TAB PO SCH ×2 (08:18→20:54)
[2022-03-15] MEDS: METHADONE 10MG TAB PO SCH (08:18)
[2022-03-15] MEDS: NICOTINE 21MG/24HR 1 EA TRANSDERMAL TD SCH (08:19)
[2022-03-15 16:08] VITALS: BP 123/64
[2022-03-15] MEDS: traZODone 50 MG TAB PO PRN (20:54)
[2022-03-16 06:46] VITALS: BP 91/50
[2022-03-16] MEDS: NICOTINE 21MG/24HR 1 EA TRANSDERMAL TD SCH (07:54)
[2022-03-16] MEDS: LORATADINE 10 MG TAB PO SCH (07:55)
[2022-03-16] MEDS: BACTRIM 160MG/800MG DS TAB PO SCH ×2 (07:55→21:08)
[2022-03-16] MEDS: METHADONE 10MG TAB PO SCH (07:55)
[2022-03-16] MEDS: FLUoxetine 20MG CAP PO SCH (07:55)
[2022-03-16] MEDS: APIXABAN 5 MG TAB (ELIQUIS) PO SCH ×2 (07:55→21:08)
[2022-03-16 16:30] VITALS: BP 115/56
[2022-03-16] MEDS: traZODone 50 MG TAB PO PRN (21:08)
[2022-03-17 06:34] VITALS: BP 106/56
[2022-03-17] MEDS: NICOTINE 21MG/24HR 1 EA TRANSDERMAL TD SCH (08:10)
[2022-03-17] MEDS: BACTRIM 160MG/800MG DS TAB PO SCH ×2 (08:10→20:03)
[2022-03-17] MEDS: APIXABAN 5 MG TAB (ELIQUIS) PO SCH ×2 (08:10→20:03)
[2022-03-17] MEDS: LORATADINE 10 MG TAB PO SCH (08:10)
[2022-03-17] MEDS: METHADONE 10MG TAB PO SCH (08:10)
[2022-03-17] MEDS: FLUoxetine 20MG CAP PO SCH (08:14)
[2022-03-17 18:48] VITALS: BP 124/68
[2022-03-17] MEDS: MIRTAZAPINE 7.5MG PER 1/2 TABLET PO SCH (20:02)
[2022-03-18 06:22] VITALS: BP 110/68
[2022-03-18 07:27] LABS: CHOLESTEROL RISK RATIO 3.4 (<5)
[2022-03-18] MEDS: APIXABAN 5 MG TAB (ELIQUIS) PO SCH ×2 (08:01→20:01)
[2022-03-18] MEDS: BACTRIM 160MG/800MG DS TAB PO SCH ×2 (08:01→20:01)
[2022-03-18] MEDS: LORATADINE 10 MG TAB PO SCH (08:01)
[2022-03-18] MEDS: METHADONE 10MG TAB PO SCH (08:02)
[2022-03-18] MEDS: NICOTINE 21MG/24HR 1 EA TRANSDERMAL TD SCH (08:02)
[2022-03-18] MEDS: FLUoxetine 20MG CAP PO SCH (08:02)
[2022-03-18 16:13] VITALS: BP 121/78
[2022-03-18] MEDS: MIRTAZAPINE 7.5MG PER 1/2 TABLET PO SCH (20:02)
[2022-03-19 06:36] VITALS: BP 119/57
[2022-03-19] MEDS: NICOTINE 21MG/24HR 1 EA TRANSDERMAL TD SCH (07:59)
[2022-03-19] MEDS: BACTRIM 160MG/800MG DS TAB PO SCH ×2 (07:59→20:17)
[2022-03-19] MEDS: FLUoxetine 20MG CAP PO SCH (07:59)
[2022-03-19] MEDS: METHADONE 10MG TAB PO SCH (07:59)
[2022-03-19] MEDS: APIXABAN 5 MG TAB (ELIQUIS) PO SCH ×2 (08:00→20:17)
[2022-03-19] MEDS: LORATADINE 10 MG TAB PO SCH (08:00)
[2022-03-19 16:23] VITALS: BP 122/70
[2022-03-19] MEDS: MIRTAZAPINE 7.5MG PER 1/2 TABLET PO SCH (20:17)
[2022-03-19] MEDS: traZODone 50 MG TAB PO PRN (20:17)
[2022-03-20 06:40] VITALS: BP 106/58
[2022-03-20] MEDS: METHADONE 10MG TAB PO SCH (08:04)
[2022-03-20] MEDS: FLUoxetine 20MG CAP PO SCH (08:04)
[2022-03-20] MEDS: APIXABAN 5 MG TAB (ELIQUIS) PO SCH ×2 (08:04→20:15)
[2022-03-20] MEDS: BACTRIM 160MG/800MG DS TAB PO SCH ×2 (08:04→20:15)
[2022-03-20] MEDS: LORATADINE 10 MG TAB PO SCH (08:04)
[2022-03-20] MEDS: NICOTINE 21MG/24HR 1 EA TRANSDERMAL TD SCH (08:05)
[2022-03-20 16:16] VITALS: BP 114/66
[2022-03-20] MEDS: MIRTAZAPINE 7.5MG PER 1/2 TABLET PO SCH (20:15)
[2022-03-20] MEDS: traZODone 50 MG TAB PO PRN (20:15)
[2022-03-21 06:10] VITALS: BP 103/55
[2022-03-21] MEDS: NICOTINE 21MG/24HR 1 EA TRANSDERMAL TD SCH (08:06)
[2022-03-21] MEDS: LORATADINE 10 MG TAB PO SCH (08:07)
[2022-03-21] MEDS: FLUoxetine 20MG CAP PO SCH (08:07)
[2022-03-21] MEDS: BACTRIM 160MG/800MG DS TAB PO SCH ×2 (08:07→20:05)
[2022-03-21] MEDS: APIXABAN 5 MG TAB (ELIQUIS) PO SCH ×2 (08:07→20:05)
[2022-03-21] MEDS: METHADONE 10MG TAB PO SCH (08:08)
[2022-03-21 18:10] VITALS: BP 108/55
[2022-03-21] MEDS: MIRTAZAPINE 7.5MG PER 1/2 TABLET PO SCH (20:05)
[2022-03-21] MEDS: traZODone 50 MG TAB PO PRN (20:05)
[2022-03-22 06:26] VITALS: BP 114/64
[2022-03-22] MEDS: METHADONE 10MG TAB PO SCH (07:56)
[2022-03-22] MEDS: FLUoxetine 20MG CAP PO SCH (07:56)
[2022-03-22] MEDS: LORATADINE 10 MG TAB PO SCH (07:57)
[2022-03-22] MEDS: BACTRIM 160MG/800MG DS TAB PO SCH ×2 (07:57→20:24)
[2022-03-22] MEDS: NICOTINE 21MG/24HR 1 EA TRANSDERMAL TD SCH (07:57)
[2022-03-22] MEDS: APIXABAN 5 MG TAB (ELIQUIS) PO SCH ×2 (07:57→20:24)
[2022-03-22 18:07] VITALS: BP 114/59
[2022-03-22] MEDS: traZODone 50 MG TAB PO PRN (20:24)
[2022-03-22] MEDS: MIRTAZAPINE 7.5MG PER 1/2 TABLET PO SCH (20:24)
[2022-03-23] MEDS ORDERED: UNRESOLVED CLARIFICATION ENTRY XX SCH (00:01)
[2022-03-23 06:00] VITALS: BP 106/55
[2022-03-23] MEDS: BACTRIM 160MG/800MG DS TAB PO SCH ×2 (08:12→20:09)
[2022-03-23] MEDS: FLUoxetine 20MG CAP PO SCH (08:12)
[2022-03-23] MEDS: METHADONE 10MG TAB PO SCH (08:12)
[2022-03-23] MEDS: APIXABAN 5 MG TAB (ELIQUIS) PO SCH ×2 (08:12→20:09)
[2022-03-23] MEDS: LORATADINE 10 MG TAB PO SCH (08:12)
[2022-03-23] MEDS: NICOTINE 21MG/24HR 1 EA TRANSDERMAL TD SCH (08:13)
[2022-03-23 17:51] VITALS: BP 124/58
[2022-03-23] MEDS: MIRTAZAPINE 7.5MG PER 1/2 TABLET PO SCH (20:09)
[2022-03-23] MEDS: traZODone 50 MG TAB PO PRN (20:09)
[2022-03-24 06:28] VITALS: BP 109/52
[2022-03-24] MEDS: APIXABAN 5 MG TAB (ELIQUIS) PO SCH ×2 (09:05→20:30)
[2022-03-24] MEDS: LORATADINE 10 MG TAB PO SCH (09:06)
[2022-03-24] MEDS: FLUoxetine 20MG CAP PO SCH (09:06)
[2022-03-24] MEDS: METHADONE 10MG TAB PO SCH (09:07)
[2022-03-24] MEDS: NICOTINE 21MG/24HR 1 EA TRANSDERMAL TD SCH (09:09)
[2022-03-24 18:12] VITALS: BP 131/73
[2022-03-24] MEDS: traZODone 50 MG TAB PO PRN (20:30)
[2022-03-24] MEDS: MIRTAZAPINE 7.5MG PER 1/2 TABLET PO SCH (20:30)
[2022-03-24] MEDS: ARIPiprazole 2 MG TAB PO SCH (20:30)
[2022-03-25 06:03] VITALS: BP 103/55
[2022-03-25] MEDS: APIXABAN 5 MG TAB (ELIQUIS) PO SCH ×2 (09:00→21:24)
[2022-03-25] MEDS: LORATADINE 10 MG TAB PO SCH (09:00)
[2022-03-25] MEDS: FLUoxetine 20MG CAP PO SCH (09:00)
[2022-03-25] MEDS: NICOTINE 21MG/24HR 1 EA TRANSDERMAL TD SCH (09:00)
[2022-03-25] MEDS: METHADONE 10MG TAB PO SCH (09:00)
[2022-03-25 18:01] VITALS: BP 116/59
[2022-03-25] MEDS: ARIPiprazole 2 MG TAB PO SCH (21:23)
[2022-03-25] MEDS: traZODone 50 MG TAB PO PRN (21:23)
[2022-03-25] MEDS: MIRTAZAPINE 7.5MG PER 1/2 TABLET PO SCH (21:23)
[2022-03-26] MEDS: METHADONE 10MG TAB PO SCH (08:57)
[2022-03-26] MEDS: NICOTINE 21MG/24HR 1 EA TRANSDERMAL TD SCH (08:57)
[2022-03-26] MEDS: FLUoxetine 20MG CAP PO SCH (08:58)
[2022-03-26] MEDS: APIXABAN 5 MG TAB (ELIQUIS) PO SCH ×2 (08:58→20:34)
[2022-03-26] MEDS: LORATADINE 10 MG TAB PO SCH (08:58)
[2022-03-26] MEDS: ARIPiprazole 2 MG TAB PO SCH (20:34)
[2022-03-26] MEDS: MIRTAZAPINE 7.5MG PER 1/2 TABLET PO SCH (20:34)
[2022-03-26] MEDS: traZODone 50 MG TAB PO PRN (20:34)
[2022-03-27] MEDS: LORATADINE 10 MG TAB PO SCH (08:54)
[2022-03-27] MEDS: FLUoxetine 20MG CAP PO SCH (08:54)
[2022-03-27] MEDS: NICOTINE 21MG/24HR 1 EA TRANSDERMAL TD SCH (08:54)
[2022-03-27] MEDS: APIXABAN 5 MG TAB (ELIQUIS) PO SCH ×2 (08:54→20:49)
[2022-03-27] MEDS: METHADONE 10MG TAB PO SCH (08:55)
[2022-03-27 18:32] VITALS: BP 112/65
[2022-03-27] MEDS: MIRTAZAPINE 7.5MG PER 1/2 TABLET PO SCH (20:49)
[2022-03-27] MEDS: traZODone 50 MG TAB PO PRN (20:49)
[2022-03-27] MEDS: ARIPiprazole 2 MG TAB PO SCH (20:49)
[2022-03-28 06:03] VITALS: BP 93/54
[2022-03-28] MEDS: METHADONE 10MG TAB PO SCH (09:35)
[2022-03-28] MEDS: FLUoxetine 20MG CAP PO SCH (09:35)
[2022-03-28] MEDS: APIXABAN 5 MG TAB (ELIQUIS) PO SCH ×2 (09:35→20:12)
[2022-03-28] MEDS: LORATADINE 10 MG TAB PO SCH (09:35)
[2022-03-28] MEDS: NICOTINE 21MG/24HR 1 EA TRANSDERMAL TD SCH (09:36)
[2022-03-28 16:22] VITALS: BP 123/60
[2022-03-28] MEDS: traZODone 50 MG TAB PO PRN (20:12)
[2022-03-28] MEDS: MIRTAZAPINE 7.5MG PER 1/2 TABLET PO SCH (20:12)
[2022-03-28] MEDS: ARIPiprazole 2 MG TAB PO SCH (20:12)
[2022-03-29 06:22] VITALS: BP 111/63
[2022-03-29] MEDS: LORATADINE 10 MG TAB PO SCH (09:08)
[2022-03-29] MEDS: NICOTINE 21MG/24HR 1 EA TRANSDERMAL TD SCH (09:09)
[2022-03-29] MEDS: METHADONE 10MG TAB PO SCH (09:10)
[2022-03-29] MEDS: FLUoxetine 20MG CAP PO SCH (09:10)
[2022-03-29] MEDS: APIXABAN 5 MG TAB (ELIQUIS) PO SCH ×2 (09:10→20:28)
[2022-03-29 16:18] VITALS: BP 119/59
[2022-03-29] MEDS: ARIPiprazole 2 MG TAB PO SCH (20:28)
[2022-03-29] MEDS: MIRTAZAPINE 15 MG TAB PO SCH (20:28)
[2022-03-30 06:11] VITALS: BP 108/56
[2022-03-30] MEDS: NICOTINE 21MG/24HR 1 EA TRANSDERMAL TD SCH (08:33)
[2022-03-30] MEDS: APIXABAN 5 MG TAB (ELIQUIS) PO SCH ×2 (08:34→20:26)
[2022-03-30] MEDS: LORATADINE 10 MG TAB PO SCH (08:34)
[2022-03-30] MEDS: METHADONE 10MG TAB PO SCH (08:34)
[2022-03-30 16:37] VITALS: BP 117/60
[2022-03-30] MEDS: ARIPiprazole 2 MG TAB PO SCH (20:26)
[2022-03-30] MEDS: MIRTAZAPINE 15 MG TAB PO SCH (20:26)
[2022-03-30] MEDS ORDERED: FLUoxetine 20MG CAP PO SCH (21:00)
[2022-03-31 06:36] VITALS: BP 108/61
[2022-03-31] MEDS: LORATADINE 10 MG TAB PO SCH (08:40)
[2022-03-31] MEDS: NICOTINE 21MG/24HR 1 EA TRANSDERMAL TD SCH (08:40)
[2022-03-31] MEDS: APIXABAN 5 MG TAB (ELIQUIS) PO SCH (08:40)
[2022-03-31] MEDS: METHADONE 10MG TAB PO SCH (08:41)
[2022-03-31] MEDS ORDERED: ABIL1TAB13 PO (09:23)
[2022-03-31] MEDS ORDERED: ELIQ5TAB PO (09:23)
[2022-03-31] MEDS ORDERED: FLUO20CA22 PO (09:23)
[2022-03-31] MEDS ORDERED: MIRT-10 PO (09:23)
[2022-03-31] MEDS ORDERED: VENTAER INH (09:23)
[2022-03-31] MEDS ORDERED: CLAR10TA7 PO (09:23)
== END 2022-03-31 10:51 | disposition home or self-care (01) | DRG 751 ==
LOC: M ED 11:47 → M ED INP 03-12 14:25 → M PSY 03-12 15:47
PROVIDERS: ADMIT Psychiatry & Neurology Psychiatry; ATTEND Student in an Organized Health Care Education/Training Program
PROC: 0HDCXZZ Extraction of Left Upper Arm Skin, External Approach (ICD-10-PCS; principal; 2022-03-12)
DX: F33.1 Major depressive disorder, recurrent, moderate (principal); K73.9 Chronic hepatitis, unspecified; R45.851 Suicidal ideations; F11.988 Opioid use, unspecified with other opioid-induced disorder; L02.414 Cutaneous abscess of left upper limb; C81.90 Hodgkin lymphoma, unspecified, unspecified site; Z92.21 Personal history of antineoplastic chemotherapy; F17.200 Nicotine dependence, unspecified, uncomplicated; Z59.00 Homelessness unspecified; Z56.0 Unemployment, unspecified; R05.9 Cough, unspecified; Z86.711 Personal history of pulmonary embolism; Z79.01 Long term (current) use of anticoagulants; Z79.899 Other long term (current) drug therapy; Z88.1 Allergy status to other antibiotic agents; Z88.8 Allergy status to other drugs, medicaments and biological substances; Z91.51 Personal history of suicidal behavior; Z63.4 Disappearance and death of family member; F11.94 Opioid use, unspecified with opioid-induced mood disorder; Z20.822 Contact with and (suspected) exposure to COVID-19; S80.01XA Contusion of right knee, initial encounter; W06.XXXA Fall from bed, initial encounter; Y92.230 Patient room in hospital as the place of occurrence of the external cause

== ENCOUNTER 2022-05-23 05:07 | Emergency (ER) | payer OTHER ==
[~2022-05-23 05:07] MED LIST changes: +ABIL1TAB13 PO; -DOXY-350 PO; +DOXY-444 PO; +FLUO20CA22 PO; +LORA-674 PO; +METH10CO PO; +MIRT-10 PO; +TRAZ-252 PO
[2022-05-23 05:21] VITALS: BP 169/103
[2022-05-23] MEDS ORDERED: LIDOCAINE 1% MDV 20ML VIAL SC ONE (06:20)
== END 2022-05-23 08:00 | disposition home or self-care (01) ==
LOC: M ED 05:07 → EDBD 05:07 → M ED 08:00
DX: S01.511A Laceration without foreign body of lip, initial encounter (principal); S00.83XA Contusion of other part of head, initial encounter; Y04.8XXA Assault by other bodily force, initial encounter; Z86.711 Personal history of pulmonary embolism; F19.10 Other psychoactive substance abuse, uncomplicated; B19.20 Unspecified viral hepatitis C without hepatic coma; F32.A Depression, unspecified; Z88.1 Allergy status to other antibiotic agents; Z88.5 Allergy status to narcotic agent; Z79.01 Long term (current) use of anticoagulants; Z79.51 Long term (current) use of inhaled steroids; Z79.899 Other long term (current) drug therapy

== ENCOUNTER 2022-11-26 02:52 | Emergency (ER) | payer OTHER ==
[~2022-11-26] VITALS: Ht 182.9 cm; Wt 74.7 kg
[2022-11-26 02:53] VITALS: BP 129/89; TEMP 97.4; O2SAT 98
== END 2022-11-26 04:30 | disposition left against medical advice (07) ==
LOC: M ED 02:52
DX: Z53.21 Procedure and treatment not carried out due to patient leaving prior to being seen by health care provider (principal)

== ENCOUNTER 2023-01-06 02:49 | Emergency (ER) | payer OTHER ==
[~2023-01-06] VITALS: Ht 182.9 cm; Wt 86.4 kg
[~2023-01-06 02:49] MED LIST changes: -GABA-283 PO; +GABA-284 PO
[2023-01-06 04:34] LABS: BASO # 0.1 10^3/uL (0.0-0.2); BASO % 0.7 % (0.0-1.0); EOS # 0.5 10^3/uL (0.0-0.5); EOS % 5.9 % (0.0-3.0); HEMATOCRIT 37.8 % (42.0-52.0); HEMOGLOBIN 12.3 g/dl (13.5-17.5); LYMPH # 2.1 10^3/uL (1.5-5.0); LYMPH % 24.7 % (24.0-44.0); MEAN CORPUSCULAR HEMOGLOBIN 29.5 pg (27.0-33.0); MEAN CORPUSCULAR HGB CONC 32.5 g/dl (32.0-36.5); MEAN CORPUSCULAR VOLUME 90.6 fl (80.0-96.0); MONO # 0.7 10^3/uL (0.0-0.8); MONO % 8.2 % (2.0-8.0); NEUTROPHILS # 5.1 10^3/uL (1.5-8.5); NEUTROPHILS % 60.1 % (36.0-66.0); PLATELET COUNT, AUTOMATED 180 10^3/uL (150-450); RED BLOOD COUNT 4.17 10^6/uL (4.30-6.10); WHITE BLOOD COUNT 8.4 10^3/uL (4.0-10.0)
[2023-01-06 05:04] LABS: BLOOD UREA NITROGEN 20 MG/DL (9-23); CALCIUM LEVEL 8.4 MG/DL (8.5-10.1); CARBON DIOXIDE LEVEL 26 MMOL/L (20-31); CHLORIDE LEVEL 109 MMOL/L (98-107); CREATININE FOR GFR 1.02 MG/DL (0.70-1.30); GLOMERULAR FILTRATION RATE > 60.0 (>60); GLUCOSE, FASTING 78 MG/DL (60-100); POTASSIUM SERUM 4.6 MMOL/L (3.5-5.1); SODIUM LEVEL 142 MMOL/L (136-145)
[2023-01-06] MEDS ORDERED: NICOTINE 21MG/24HR 1 EA TRANSDERMAL TD ONE (05:05)
[2023-01-06 05:58] VITALS: TEMP 97.1
[2023-01-06] MEDS ORDERED: BOOSTRIX VACCINE (TETANUS/DIPHTH/ACEL. PERTUSSIS) 0.5ML SYR IM.IMMUN ONE (06:05)
[2023-01-06 07:19] VITALS: O2SAT 85
[2023-01-06 07:30] VITALS: BP 108/59
== END 2023-01-06 07:38 | disposition left against medical advice (07) ==
LOC: M ED 02:49 → EDBD 02:49 → M ED 07:38
DX: S02.402A Zygomatic fracture, unspecified side, initial encounter for closed fracture (principal); S01.319A Laceration without foreign body of unspecified ear, initial encounter; Z53.9 Procedure and treatment not carried out, unspecified reason; Y04.8XXA Assault by other bodily force, initial encounter; Y92.410 Unspecified street and highway as the place of occurrence of the external cause; F17.200 Nicotine dependence, unspecified, uncomplicated; F10.10 Alcohol abuse, uncomplicated; Z79.899 Other long term (current) drug therapy; Z88.0 Allergy status to penicillin; Z88.5 Allergy status to narcotic agent

== ENCOUNTER 2023-03-29 14:09 | Emergency (ER) | payer OTHER ==
[~2023-03-29] VITALS: Ht 182.9 cm; Wt 82.3 kg
[~2023-03-29 14:09] MED LIST changes: -CEFD300C41 PO; +CEFD300C42 PO; +LORA-1041 PO; -LORA-674 PO
[2023-03-29 14:10] VITALS: BP 105/56; TEMP 97.9; O2SAT 97
== END 2023-03-29 15:03 | disposition left against medical advice (07) ==
LOC: M ED 14:09
DX: Z53.21 Procedure and treatment not carried out due to patient leaving prior to being seen by health care provider (principal)

== ENCOUNTER 2023-08-29 10:04 | Emergency (ER) | payer OTHER ==
[~2023-08-29] VITALS: Ht 182.9 cm; Wt 85.9 kg
[~2023-08-29 10:04] MED LIST changes: +CEFD1CAP9 PO; -CEFD300C42 PO
[2023-08-29 10:05] VITALS: BP 127/58; TEMP 97.5; O2SAT 97
== END 2023-08-29 12:30 | disposition home or self-care (01) ==
LOC: M ED 10:04
DX: S09.90XA Unspecified injury of head, initial encounter (principal); M54.50 Low back pain, unspecified; W10.8XXA Fall (on) (from) other stairs and steps, initial encounter; Y92.009 Unspecified place in unspecified non-institutional (private) residence as the place of occurrence of the external cause; Y93.9 Activity, unspecified; Y99.9 Unspecified external cause status; I10 Essential (primary) hypertension; J45.909 Unspecified asthma, uncomplicated; F19.10 Other psychoactive substance abuse, uncomplicated; Z86.19 Personal history of other infectious and parasitic diseases; Z86.711 Personal history of pulmonary embolism; Z86.718 Personal history of other venous thrombosis and embolism; Z87.442 Personal history of urinary calculi; F17.200 Nicotine dependence, unspecified, uncomplicated; Z85.71 Personal history of Hodgkin lymphoma; Z79.899 Other long term (current) drug therapy; Z88.0 Allergy status to penicillin; Z88.5 Allergy status to narcotic agent

== ENCOUNTER → 2023-11-08 | Outpatient (CLI) | payer OTHER ==
[~2023-11-08] MED LIST changes: +DOXY-323 PO; +DOXY-440 PO; -DOXY-443 PO; -DOXY-444 PO; +FLUO-365 PO; -FLUO20CA22 PO; -OXYC1CAP PO; +OXYC1CAP2 PO
== END ==
LOC: M SOG 07:56
PROVIDERS: ATTEND Physician Assistant
DX: M79.641 Pain in right hand (principal); S62.336A Displaced fracture of neck of fifth metacarpal bone, right hand, initial encounter for closed fracture; X58.XXXA Exposure to other specified factors, initial encounter; Y92.9 Unspecified place or not applicable; Y93.9 Activity, unspecified; Y99.9 Unspecified external cause status

== ENCOUNTER → 2023-11-28 | Outpatient (CLI) | payer OTHER | LOC: M SOG 08:02 | PROVIDERS: ATTEND Physician Assistant | DX: M79.641 Pain in right hand (principal); S62.306D Unspecified fracture of fifth metacarpal bone, right hand, subsequent encounter for fracture with routine healing ==

== ENCOUNTER → 2023-12-21 | Outpatient (CLI) | payer OTHER | LOC: M SOG 07:53 | PROVIDERS: ATTEND Physician Assistant | DX: S62.366D Nondisplaced fracture of neck of fifth metacarpal bone, right hand, subsequent encounter for fracture with routine healing (principal); Y93.9 Activity, unspecified; Y92.9 Unspecified place or not applicable ==

== ENCOUNTER 2024-02-01 11:45 | Inpatient (IN) | payer MEDICAID ==
[~2024-02-01] VITALS: Ht 182.9 cm; Wt 89.7 kg
[~2024-02-01 11:45] MED LIST changes: +GABA-1490; +GABA-1490 PO; -GABA600T4; -GABA600T4 PO
[2024-02-01 12:44] LABS: HEMATOCRIT 38.4 % (42.0-52.0); HEMOGLOBIN 13.5 g/dl (13.5-17.5); MEAN CORPUSCULAR HEMOGLOBIN 30.9 pg (27.0-33.0); MEAN CORPUSCULAR HGB CONC 35.2 g/dl (32.0-36.5); MEAN CORPUSCULAR VOLUME 87.9 fl (80.0-96.0); PLATELET COUNT, AUTOMATED 239 10^3/uL (150-450); RED BLOOD COUNT 4.37 10^6/uL (4.30-6.10); WHITE BLOOD COUNT 12.5 10^3/uL (4.0-10.0)
[2024-02-01 13:00] LABS: ETHYL ALCOHOL (ETHANOL) 0.004 % (0.000-0.010)
[2024-02-01 13:02] LABS: ALBUMIN 3.7 G/DL (3.2-5.2); ALKALINE PHOSPHATASE 105 U/L (46-116); ALT/SGPT 17 U/L (7.0-40); AST/SGOT 16 U/L (<34); BILIRUBIN,DIRECT 0.3 MG/DL (<0.4); BILIRUBIN,TOTAL 0.8 MG/DL (0.3-1.2); BLOOD UREA NITROGEN 10 MG/DL (9-23); CALCIUM LEVEL 9.2 MG/DL (8.5-10.1); CARBON DIOXIDE LEVEL 21 MMOL/L (20-31); CHLORIDE LEVEL 111 MMOL/L (98-107); CREATININE FOR GFR 0.77 MG/DL (0.70-1.30); GLOMERULAR FILTRATION RATE > 60.0 (>60); GLUCOSE, FASTING 89 MG/DL (60-100); POTASSIUM SERUM 3.3 MMOL/L (3.5-5.1); SALICYLATE LEVEL < 3.0 MG/DL (<30); SODIUM LEVEL 140 MMOL/L (136-145); TOTAL PROTEIN 7.3 G/DL (5.7-8.2)
[2024-02-01 13:05] LABS: THYROID STIMULATING HORMONE 0.966 uIU/ML (0.55-4.78)
[2024-02-01] MEDS: POTASSIUM CHLORIDE 10MEQ SR TABLET PO ONE (13:50)
[2024-02-01 14:10] LABS: BARBITURATES URINE NEGATIVE (NEGATIVE); BENZODIAZEPINES URINE NEGATIVE (NEGATIVE); CANNABINOIDS URINE NEGATIVE (NEGATIVE); COCAINE METABOLITE URINE NEGATIVE (NEGATIVE); METHADONE URINE NEGATIVE (NEGATIVE); OPIATES URINE NEGATIVE (NEGATIVE); PHENCYCLIDINE URINE NEGATIVE (NEGATIVE)
[2024-02-01 14:12] LABS: AMPHETAMINES LEVEL URINE POSITIVE (NEGATIVE)
[2024-02-01] MEDS ORDERED: diphenhydrAMINE 25MG CAP PO PRN (15:25)
[2024-02-01] MEDS ORDERED: MOM 30ML SUSPENSION UDC PO PRN (15:25)
[2024-02-01] MEDS ORDERED: IBUPROFEN 400MG TAB PO PRN (15:25)
[2024-02-01] MEDS ORDERED: HOME MED LIST COMPLETE! XX SCH (16:30)
[2024-02-01] MEDS ORDERED: ZOLO100T PO (16:30)
[2024-02-01] MEDS ORDERED: HYDR1CAP25 PO (16:30)
[2024-02-01 17:15] VITALS: BP 123/82; TEMP 97.3; O2SAT 100
[2024-02-02 06:30] VITALS: BP 126/71; TEMP 97.2; O2SAT 98
[2024-02-02] MEDS ORDERED: HOME MED LIST COMPLETE! XX SCH (09:35)
[2024-02-02] MEDS: METHADONE 10MG TAB PO SCH (11:21)
[2024-02-02 15:33] VITALS: BP 140/73; TEMP 97.6; O2SAT 97
[2024-02-02 17:16] LABS: HEMATOCRIT 36.8 % (42.0-52.0); HEMOGLOBIN 12.8 g/dl (13.5-17.5); MEAN CORPUSCULAR HEMOGLOBIN 30.4 pg (27.0-33.0); MEAN CORPUSCULAR HGB CONC 34.8 g/dl (32.0-36.5); MEAN CORPUSCULAR VOLUME 87.4 fl (80.0-96.0); PLATELET COUNT, AUTOMATED 275 10^3/uL (150-450); RED BLOOD COUNT 4.21 10^6/uL (4.30-6.10); WHITE BLOOD COUNT 15.6 10^3/uL (4.0-10.0)
[2024-02-02 17:28] LABS: INR 1.08; PARTIAL THROMBOPLASTIN TIME 24.2 SECONDS (24.8-34.2); PROTHROMBIN TIME 13.7 SECONDS (12.5-14.5)
[2024-02-02 17:40] LABS: BLOOD UREA NITROGEN 16 MG/DL (9-23); CALCIUM LEVEL 9.2 MG/DL (8.5-10.1); CARBON DIOXIDE LEVEL 29 MMOL/L (20-31); CHLORIDE LEVEL 107 MMOL/L (98-107); CREATININE FOR GFR 0.89 MG/DL (0.70-1.30); GLOMERULAR FILTRATION RATE > 60.0 (>60); GLUCOSE, FASTING 120 MG/DL (60-100); SODIUM LEVEL 141 MMOL/L (136-145)
[2024-02-02 18:22] LABS: ATYPICAL LYMPH 1 % (0-5); EOSINOPHILS 3 % (0-3); LYMPHOCYTES 42 % (16-44); MONOCYTES 2 % (0-5); NEUTROPHILS 52 % (28-66); PLATELET ESTIMATE NORMAL (NORMAL)
[2024-02-02] MEDS: traZODone 50 MG TAB PO PRN (21:06)
[2024-02-02] MEDS: DOXYCYCLINE HYCLATE 100MG TABLET PO SCH (21:06)
[2024-02-02] MEDS: APIXABAN 5 MG TAB (ELIQUIS) PO SCH (21:06)
[2024-02-02] MEDS: NICOTINE 21MG/24HR 1 EA TRANSDERMAL TD SCH (21:32)
[2024-02-03 06:01] VITALS: BP 137/64; TEMP 97.7; O2SAT 97
[2024-02-03] MEDS: FLUoxetine 10 MG CAP PO SCH (08:55)
[2024-02-03 15:29] VITALS: BP 130/82; TEMP 97.8; O2SAT 100
[2024-02-03] MEDS: MAALOX 30 ML SUSP *UDC PO PRN (22:48)
[2024-02-04 06:35] VITALS: BP 129/55; TEMP 98.1; O2SAT 96
[2024-02-04] MEDS: SERTRALINE 100 MG TAB PO SCH (08:09)
[2024-02-04 15:28] VITALS: BP 123/70; TEMP 98.1; O2SAT 18
[2024-02-05 06:20] VITALS: BP 109/55; TEMP 98.9; O2SAT 95
[2024-02-05 15:36] VITALS: BP 119/65; TEMP 97.6; O2SAT 97
[2024-02-05] MEDS: ACETAMINOPHEN TAB 650MG DOSE (2X325MG) PO PRN (15:39)
[2024-02-06 06:15] VITALS: BP 132/64; TEMP 97.2; O2SAT 95
[2024-02-06 15:38] VITALS: BP 122/58; TEMP 97.5; O2SAT 95
[2024-02-07 06:33] VITALS: BP 129/63; TEMP 97.6; O2SAT 98
[2024-02-07 14:25] VITALS: BP 123/63; TEMP 98.2; O2SAT 97
[2024-02-08 06:08] VITALS: BP 120/71; TEMP 97
[2024-02-08] MEDS ORDERED: BISACODYL 10MG SUPP PR PRN (12:15)
[2024-02-08] MEDS ORDERED: MIRALAX *UNIT DOSE* 17GM PACKET PO PRN (12:15)
[2024-02-08] MEDS ORDERED: MOM 30ML SUSPENSION UDC PO PRN (12:15)
[2024-02-08] MEDS: SENOKOT S TAB PO SCH (12:25)
[2024-02-08 15:19] VITALS: BP 114/67; TEMP 97.8; O2SAT 97
[2024-02-09 06:21] VITALS: BP 108/61; TEMP 98.5; O2SAT 100
[2024-02-09 15:34] VITALS: BP 130/72; TEMP 97.2; O2SAT 96
[2024-02-09] MEDS: OLANZapine 5 MG TAB PO SCH (20:42)
[2024-02-10 16:19] VITALS: BP 136/80; TEMP 98; O2SAT 99
[2024-02-11 06:11] VITALS: BP 107/56; TEMP 97.1; O2SAT 97
[2024-02-11 16:36] VITALS: BP 134/86; TEMP 97.9; O2SAT 99
[2024-02-12 06:27] VITALS: BP 118/59; TEMP 98.6; O2SAT 95
[2024-02-12] MEDS ORDERED: TRAZ-252 PO (10:02)
[2024-02-12] MEDS ORDERED: ZOLO100T PO (10:02)
[2024-02-12] MEDS ORDERED: MIRA33506 PO (10:02)
[2024-02-12] MEDS ORDERED: ELIQ5TAB PO (10:02)
[2024-02-12] MEDS ORDERED: SENN-52 PO (10:02)
[2024-02-12] MEDS ORDERED: OLAN1TAB16 PO (10:02)
== END 2024-02-12 11:50 | disposition home or self-care (01) | DRG 753 ==
LOC: M ED 11:45 → M ED INP 15:21 → EEVIPCON 15:21 → M PSY 16:51
PROVIDERS: ADMIT Psychiatry & Neurology Child & Adolescent Psychiatry; ATTEND Psychiatry & Neurology Psychiatry
DX: F32.89 Other specified depressive episodes (principal); R45.851 Suicidal ideations; F11.90 Opioid use, unspecified, uncomplicated; F15.90 Other stimulant use, unspecified, uncomplicated; F60.3 Borderline personality disorder; Z88.1 Allergy status to other antibiotic agents; Z88.8 Allergy status to other drugs, medicaments and biological substances; Z79.899 Other long term (current) drug therapy; Z86.711 Personal history of pulmonary embolism; Z79.01 Long term (current) use of anticoagulants; L02.413 Cutaneous abscess of right upper limb; W46.0XXA Contact with hypodermic needle, initial encounter; Z85.71 Personal history of Hodgkin lymphoma; R10.2 Pelvic and perineal pain

== ENCOUNTER 2024-02-13 12:26 | Emergency (ER) | payer MEDICAID ==
[~2024-02-13] VITALS: Ht 180.3 cm; Wt 95.8 kg
[~2024-02-13 12:26] MED LIST changes: +HYDR1CAP25 PO; +MIRA33506 PO; +OLAN1TAB16 PO; +SENN-52 PO; +ZOLO100T PO
[2024-02-13 13:03] LABS: HEMATOCRIT 35.3 % (42.0-52.0); HEMOGLOBIN 11.5 g/dl (13.5-17.5); MEAN CORPUSCULAR HEMOGLOBIN 30.4 pg (27.0-33.0); MEAN CORPUSCULAR HGB CONC 32.6 g/dl (32.0-36.5); MEAN CORPUSCULAR VOLUME 93.4 fl (80.0-96.0); PLATELET COUNT, AUTOMATED 192 10^3/uL (150-450); RED BLOOD COUNT 3.78 10^6/uL (4.30-6.10); WHITE BLOOD COUNT 10.1 10^3/uL (4.0-10.0)
[2024-02-13 13:36] LABS: AMPHETAMINES LEVEL URINE NEGATIVE (NEGATIVE)
[2024-02-13 13:37] LABS: BARBITURATES URINE NEGATIVE (NEGATIVE); BENZODIAZEPINES URINE NEGATIVE (NEGATIVE); CANNABINOIDS URINE NEGATIVE (NEGATIVE); COCAINE METABOLITE URINE NEGATIVE (NEGATIVE); OPIATES URINE NEGATIVE (NEGATIVE); PHENCYCLIDINE URINE NEGATIVE (NEGATIVE)
[2024-02-13 13:39] LABS: ETHYL ALCOHOL (ETHANOL) < 0.003 % (0.000-0.010)
[2024-02-13 13:40] LABS: METHADONE URINE POSITIVE (NEGATIVE)
[2024-02-13 13:41] LABS: ALBUMIN 3.2 G/DL (3.2-5.2); ALKALINE PHOSPHATASE 85 U/L (46-116); ALT/SGPT 31 U/L (7.0-40); AST/SGOT 25 U/L (<34); BILIRUBIN,DIRECT < 0.1 MG/DL (<0.4); BILIRUBIN,TOTAL 0.3 MG/DL (0.3-1.2); BLOOD UREA NITROGEN 15 MG/DL (9-23); CARBON DIOXIDE LEVEL 29 MMOL/L (20-31); CHLORIDE LEVEL 104 MMOL/L (98-107); CREATININE FOR GFR 0.86 MG/DL (0.70-1.30); GLOMERULAR FILTRATION RATE > 60.0 (>60); GLUCOSE, FASTING 119 MG/DL (60-100); POTASSIUM SERUM 4.3 MMOL/L (3.5-5.1); SALICYLATE LEVEL < 3.0 MG/DL (<30); SODIUM LEVEL 139 MMOL/L (136-145); TOTAL PROTEIN 6.8 G/DL (5.7-8.2)
[2024-02-13 13:43] LABS: THYROID STIMULATING HORMONE 2.794 uIU/ML (0.55-4.78)
[2024-02-13] MEDS: METHADONE 10MG TAB PO ONE (14:37)
[2024-02-13 15:16] VITALS: BP 114/67; TEMP 97.7; O2SAT 96
== END 2024-02-13 15:34 | disposition home or self-care (01) ==
LOC: M ED 12:26
DX: F32.A Depression, unspecified (principal); Z91.51 Personal history of suicidal behavior; F19.10 Other psychoactive substance abuse, uncomplicated; Z86.19 Personal history of other infectious and parasitic diseases; Z85.71 Personal history of Hodgkin lymphoma; Z86.711 Personal history of pulmonary embolism; Z79.899 Other long term (current) drug therapy; Z88.0 Allergy status to penicillin; Z88.5 Allergy status to narcotic agent
CPT/HCPCS: 80048; 80076; 80143; 80307; 82077; 84443; 85027; 99284; S0109